=== PATIENT | female | born 1945 | race Caucasian/White ===

== ENCOUNTER 2024-02-10 12:37 | Emergency (ER) | payer MEDICARE, MEDICAID, SELFPAY ==
[2024-02-10 12:51] VITALS: BP 143/53; PULSE 79; RESP 16; TEMP 36.2; O2SAT 97; BMI 33.3
--- NOTE | 2024-02-10 12:51 | ED_ITS ---
HPI - Abdominal Pain General Chief Complaint: Skin/Abscess/Foreign Body Stated Complaint: Lower Back Pain;rash Time Seen by Provider: 02/10/24 13:01 Source: patient Mode of arrival: ambulatory Limitations: no limitations History of Present Illness HPI narrative: Patient is a 78-year-old female who presents emergency department. Reports 1 week with pain to the right scapular region of her back radiating across into the right breast which has been constant in nature, she developed a rash a couple of days ago in this area. Reports no injury to the area, denies fevers or chills. She has a history of shingles Related Data Home Medications ?Medication ?Instructions ?Recorded ?Confirmed fluticasone propionate 110 1 puff inhalation BID 04/07/21 mcg/actuation HFA aerosol inhaler (Flovent HFA) Previous Rx's ?Medication ?Instructions ?Recorded prednisone 20 mg tablet 40 mg (2 x 20 mg) PO DAILY 5 days 02/10/24 #10 tabs valacyclovir 500 mg tablet 500 mg PO DAILY #7 tabs 02/10/24 Allergies Allergy/AdvReac Type Severity Reaction Status Date / Time morphine [MORPHINE] Allergy Intermediate FAINTED Verified 02/10/24 13:00 Review of Systems Review of Systems Yes all other systems are reviewed and are negative [facility] Past Medical History Attestation statement: The following information was validated with the patient. Source: old records reviewed Social History Social History Advance Directives: No Advance Directives Information Provided: Yes Do you have a plan to hurt others: No Plan Physical Exam ED Vital Signs: Vital Signs - 24 hr 02/10/24 12:51 Temperature 97.2 F Pulse Rate 79 Respiratory Rate 16 Blood Pressure 143/53 H Pulse Oximetry 97 Oxygen Delivery Method Room Air BMI result Body Mass Index 33.3 Appearance: Alert.?Oriented to person, place and time. No acute distress.?Normal affect. Neck: Normal inspection.? Neck supple.?? CVS: Heart sounds normal. Normal heart rate and rhythm.? Pulses normal.?? Respiratory: No respiratory distress.? Lung sounds clear to auscultation martine aterally?? Abdomen: Soft and non-tender. Negative Rodriguez sign. Normoactive bowel sounds. Skin: Skin warm and dry.? Normal skin color.? Vesicular papular rash on erythematous base involving the right scapula/right anterior chest C8-T2 dermatomes Extremities: No lower extremity edema.? Neuro: Moves all extremities spontaneously. Sensation intact bilaterally. Medical Decision Making Medical Decision Making MDM Narrative: Patient is a 78-year-old female with past medical history of end-stage renal disease presenting to emergency department for evaluation of a painful rash to her right scapula and right anterior chest as per HPI. Physical examination is consistent with herpes zoster, given ESRD, will dose valacyclovir accordingly to 500 mg every 24 hours for 7 days in addition to a course of prednisone for further pain management. Discussed worrisome signs and symptoms that would warrant re-evaluation emergency department. All questions answered. Stable for discharge. Differential Diagnosis Differential Diagnoses: The differential diagnosis associated with the presentation includes (Herpes zoster, folliculitis, contact dermatitis, drug eruption) Independent Historian Clinical information obtained from an independent historian. History obtained from or confirmed by: Other (Son present who confirms history) External Record Review External record reviewed: Outpatient record Prescription Management I considered prescription management with: Antiviral and Other (Prednisone) Chronic Conditions Patient?s care impacted by: Other (ESRD) Discharge Plan Discharge Clinical Impression: Herpes zoster Patient Disposition: Home, Self-Care Instructions: Shingles (ED) Additional Instructions: Take valacyclovir daily as prescribed. On the days that you have dialysis be sure to take it after your dialysis is completed. Take the prednisone daily as prescribed for 5 days. Take this with food to prevent any stomach upset. You may return back to emergency department any new or worsening symptoms or concerns. Please contact your primary care doctor to arrange for a follow-up visit. Prescriptions: New valacyclovir 500 mg tablet 500 mg PO DAILY Qty: 7 0RF prednisone 20 mg tablet 40 mg PO DAILY 5 Days Qty: 10 0RF No Action Flovent HFA 110 mcg/actuation HFA aerosol inhaler 1 puff inhalation BID Print Language: Nigerien
[2024-02-10 13:13] VITALS: BP 143/53; PULSE 79; RESP 16; TEMP 36.2; O2SAT 97
== END 2024-02-10 13:16 | disposition home or self-care (01) ==
PROVIDERS: Emergency Provider Emergency Medicine; PCP Internal Medicine Nephrology
DX: B02.9 Zoster without complications (principal); N18.6 End stage renal disease
CPT/HCPCS: 99282; 99283

== ENCOUNTER 2024-03-06 10:45 | Emergency (ER) | payer MEDICARE, MEDICAID, SELFPAY ==
[2024-03-06 12:02] VITALS: BP 134/71; PULSE 71; RESP 18; TEMP 37.1; O2SAT 97; BMI 39.4
--- NOTE | 2024-03-06 12:02 | ED_ITS ---
HPI - General Adult General Chief complaint: General Medical Stated complaint: shingles in pain Time Seen by Provider: 03/06/24 12:09 Source: patient Mode of arrival: ambulatory Limitations: no limitations History of Present Illness ED Provider: Mandy BELLA HPI narrative: This is a 78-year-old female history of obesity, ESRD on HD, recent diagnosis of shingles on 02/10/2024 presenting with complaints of pain to affected area from shingles rash. She was taking gabapentin however she ran out. Patient denies chills, nausea, vomiting, abdominal pain, chest pain, shortness of breath. Has a PCP and will follow-up with them. Related Data Home Medications ?Medication ?Instructions ?Recorded ?Confirmed fluticasone propionate 110 1 puff inhalation BID 04/07/21 mcg/actuation HFA aerosol inhaler (Flovent HFA) Previous Rx's ?Medication ?Instructions ?Recorded prednisone 20 mg tablet 40 mg (2 x 20 mg) PO DAILY 5 days 02/10/24 #10 tabs valacyclovir 500 mg tablet 500 mg PO DAILY #7 tabs 02/10/24 gabapentin 100 mg capsule 100 mg PO TID 7 days #21 caps 03/06/24 Allergies Allergy/AdvReac Type Severity Reaction Status Date / Time morphine [MORPHINE] Allergy Intermediate FAINTED Verified 03/06/24 12:05 Review of Systems Review of Systems: Yes all other systems are reviewed and are negative [facility] Past Medical History Attestation statement: The following information was validated with the patient. Source: old records reviewed and nursing notes reviewed Social History Social History Advance Directives: No Physical Exam ED Vital Signs: Vital Signs - 24 hr 03/06/24 12:02 Temperature 98.8 F Pulse Rate 71 Respiratory Rate 18 Blood Pressure 134/71 Pulse Oximetry 97 Oxygen Delivery Method Room Air BMI result Body Mass Index 39.4 vss Appearance: Alert.? Oriented X3.? No acute distress.? Head: Normocephalic, atraumatic, no step-offs or deformities Eyes: Pupils equal, round and reactive to light.? CVS: Normal heart rate and rhythm.? Pulses normal.? Respiratory: No respiratory distress.? Breath sounds normal.? Abdomen: Soft and nontender.? Skin: Skin warm and dry.? Normal skin color.? Normal skin turgor.?+ stripe of healing blisters on an erathematous base, on R dermatome T3-T4 region Extremities: No lower extremity edema.? No calf ttp. 5/5 strength to bilateral upper and lower extremities Back: No midline tenderness, no C-spine tenderness, full range of motion, no CVA tenderness bilaterally Neuro: Oriented X 3.? No motor deficit.? No sensory deficit. CN 2-12 intact Course Course Course Narrative: This is an RME done by GAYLE Chandler: Additional HPI, ROS, PE not included below will be deferred to primary provider. 78 year old female presents with complaint of increasing shingles pain after being diagnosed about 4 weeks ago. She states the shingles is located on her back and is seeimgnl getting better but the pain is increasing. Pt states she has been taking gabapentin but it has not helped the pain. Appearance: Alert.? Oriented X3.? No acute cardiopulmonary distress distress.? Head: Normocephalic, atraumatic, no step-offs or deformities CVS: Pulses normal.? Respiratory: No respiratory distress.? Abdomen: Soft and nontender.? Skin: ? Normal skin color. Extremities: 5/5 strength to bilateral upper and lower extremities. Back: No midline tenderness, no C-spine tenderness, full range of motion, No CVA tenderness bilaterally. Right sided rash along T3/T4 dermatome Neuro: Oriented X 3.? No motor deficit.? No sensory deficit. Reevaluation(s) Reevaluation #1: Educated patient on diagnosis and treatment plan, answered all question, patient verbalizes understanding. At this time patient will be discharged home, advised to return with new or worsening symptoms. Educated on worrisome signs and symptoms and when to return. At this time I feel comfortable discharge home. Time: 12:14 Medical Decision Making Medical Decision Making [facility] Narrative: [address]12 78 yo f presents w/ concerns of ain to shingles region on right side ran out of gabapentin PE + stripe of healing blisters on an erathematous base, on R dermatome T3-T4 region HX and pe concerning for healing shingles vs contact dermatitis vs localized allergic reation. Likely nerve pain. No signs of necrotizing infection Plan- refil gabapentin encouragage PCP follow up and dc home. Differential Diagnosis Differential Diagnoses: The differential diagnosis associated with the presentation includes HX and pe concerning for healing shingles vs contact dermatitis vs localized allergic reation. Likely nerve pain. No signs of necrotizing infection Admission/Observation Consideration of admission/observation: Escalation of care including admission/observation considered External Record Review External record reviewed: Office record, Outpatient record and Prior outpatient labs Prescription Management I considered prescription management with: Pain Medication (gabapentin ) Chronic Conditions Patient?s care impacted by: Other (ckd ) Discharge Plan Discharge Clinical Impression: Shingles Patient Disposition: Home, Self-Care Instructions: Shingles (ED) Additional Instructions: Take your medications as prescribed. If you were prescribed antibiotics today, it is important that you take your medication to their entirety, do not skip any doses, do not finish them early. Follow-up with your primary care provider this week. Return to the emergency department with new or worsening symptoms. In case of emergency call 911 Prescriptions: New gabapentin 100 mg capsule 100 mg PO TID 7 Days Qty: 21 0RF No Action Flovent HFA 110 mcg/actuation HFA aerosol inhaler 1 puff inhalation BID valacyclovir 500 mg tablet 500 mg PO DAILY Qty: 7 0RF prednisone 20 mg tablet 40 mg PO DAILY 5 Days Qty: 10 0RF Referrals: Physician,Unknown J [Primary Care Provider] - 2 days Print Language: Turkish
[2024-03-06 12:16] VITALS: BP 134/71; PULSE 71; RESP 18; TEMP 37.1; O2SAT 97
== END 2024-03-06 12:17 | disposition home or self-care (01) ==
PROVIDERS: Emergency Provider Emergency Medicine
DX: B02.8 Zoster with other complications (principal)
CPT/HCPCS: 99282; 99283

== ENCOUNTER 2024-03-16 09:13 | Emergency (ER) | payer MEDICARE, MEDICAID, SELFPAY ==
--- NOTE | ~2024-03-16 | XR_ITS ---
EXAMINATION: XR ANKLE, LEFT CLINICAL INFORMATION: Pain in both ankles. COMPARISON: None available. TECHNIQUE: 3 views of the left ankle. FINDINGS: 3 views of left ankle reveal diffuse osteopenia soft tissue swelling along the lateral aspect of the foot but no fractures. There is plantar calcaneal spur. Ankle mortise is preserved. XR/XR ankle LT min 3V IMPRESSION: No fracture seen on the left
--- NOTE | ~2024-03-16 | XR_ITS ---
Examination: Right ankle and right foot COMPARISON: None CLINICAL INFORMATION: pain following fall FINDINGS: 3 views of right ankle reveals mild diffuse osteopenia but no evidence of fractures there is soft tissue swelling seen laterally ankle mortise is maintained. 3 views of right foot reveals no fractures or dislocations. There is plantar calcaneal spur. XR/XR foot RT min 3V IMPRESSION: No fractures seen. Soft tissue swelling laterally. Plantar calcaneal spur. No evidence of fractures in the right foot or ankle
--- NOTE | ~2024-03-16 | XR_ITS ---
Examination: Right ankle and right foot COMPARISON: None CLINICAL INFORMATION: pain following fall FINDINGS: 3 views of right ankle reveals mild diffuse osteopenia but no evidence of fractures there is soft tissue swelling seen laterally ankle mortise is maintained. 3 views of right foot reveals no fractures or dislocations. There is plantar calcaneal spur. XR/XR ankle RT min 3V IMPRESSION: No fractures seen. Soft tissue swelling laterally. Plantar calcaneal spur. No evidence of fractures in the right foot or ankle
[2024-03-16 09:19] VITALS: BP 122/84; PULSE 88; O2SAT 99
[2024-03-16 09:34] VITALS: BP 114/41; PULSE 74; RESP 16; TEMP 37.1; O2SAT 97; BMI 43.6
--- NOTE | 2024-03-16 09:48 | ED.LOWEXIN ---
HPI - Extremity Injury (Lower) General Chief Complaint: Extremity Injury, Lower Stated Complaint: ANKLE PAIN Time Seen by Provider: 03/16/24 09:29 Source: patient Mode of arrival: EMS Limitations: no limitations History of Present Illness HPI Narrative: patient is a 78-year-old female who presents emergency department via EMS. She reports that she was walking with her walker today, be walker went too far forward from her resulting in her losing her balance, she fell onto her knees and then sat back down onto her buttocks. She reports a cracking sensation to her ankles. She denies any head strike or loss of consciousness. She reports pain to the bilateral ankles and her right foot. She does state that she is currently being treated for active herpes zoster to her right shoulder, she took gabapentin prior to arrival. At this time she declines acetaminophen when offered. She denies any numbness tingling or cold sensation to the extremities. She does report that she lives alone, she has a wheelchair to get around for distances, typically uses a walker within her home but she states that she does feel comfortable navigating throughout her house with a wheelchair if need be. Related Data Home Medications ?Medication ?Instructions ?Recorded ?Confirmed fluticasone propionate 110 1 puff inhalation BID 04/07/21 mcg/actuation HFA aerosol inhaler (Flovent HFA) Previous Rx's ?Medication ?Instructions ?Recorded prednisone 20 mg tablet 40 mg (2 x 20 mg) PO DAILY 5 days 02/10/24 #10 tabs valacyclovir 500 mg tablet 500 mg PO DAILY #7 tabs 02/10/24 gabapentin 100 mg capsule 100 mg PO TID 7 days #21 caps 03/06/24 Allergies Allergy/AdvReac Type Severity Reaction Status Date / Time morphine [MORPHINE] Allergy Intermediate FAINTED Verified 03/16/24 09:34 Review of Systems Review of Systems: Yes all other systems are reviewed and are negative [facility] Past Medical History Attestation statement: The following information was validated with the patient. Source: old records reviewed Social History Social History Advance Directives: No Advance Directives Information Provided: No Physical Exam Vital Signs: Vital Signs: Last Vital Signs Temp 97.5 F 03/16/24 10:00 Pulse 77 03/16/24 10:00 Resp 16 03/16/24 09:34 BP 117/40 L 03/16/24 10:00 Pulse Ox 99 03/16/24 10:00 O2 Del Method Room Air 03/16/24 10:00 BMI result Body Mass Index 43.6 Appearance: Alert.?Oriented to person, place and time. No acute distress.?Normal affect. Eyes: Pupils equal, round and reactive to light.? ENT: Pharynx normal.?? Neck: Normal inspection.? Neck supple.?? CVS: Heart sounds normal. Normal heart rate and rhythm.? Pulses normal.?? Respiratory: No respiratory distress.? Lung sounds clear to auscultation bilaterally?? Abdomen: Soft and non-tender. Normoactive bowel sounds. ?? Skin: Skin warm and dry.? Normal skin color.? Extremities: No lower extremity edema.? No calf ttp? 2+ DP/PT pulse bilaterally. No obvious deformity to bilateral ankles/ foot. Diffuse tenderness upon palpation of right midfoot Neuro: Moves all extremities spontaneously. Sensation intact bilaterally. CN II-XII intact. No focal neuro deficits. Course Reevaluation(s) Reevaluation #1: bilateral ankle and right foot XR is without acute fracture. These results were discussed with patient. She is amenable to acetaminophen at this time. We will wrap bilateral ankles with Davon bandages attempt ambulatory trial son is at bedside Time: 11:42 Reevaluation #2: ambulated with slow antalgic gait in the use of a walker. She feels comfortable with plan of care for discharge home. Medications Administered Discontinued Medications Generic Name Dose Route Start Last Admin Trade Name Freq PRN Reason Stop Dose Admin Acetaminophen 975 mg 03/16/24 11:39 03/16/24 11:51 Acetaminophen 325 Mg Tablet PO 03/16/24 11:40 975 mg ONCE ONE Administration Medical Decision Making Medical Decision Making MDM Narrative: patient is a 78-year-old female past medical history of obesity, hypertension, end-stage renal disease on hemodialysis presents emergency for evaluation of bilateral a goal in right foot pain after mechanical fall today as per HPI. Overall she appears well, nontoxic, afebrile. Bilateral lower extremities are neurovascularly intact distally. She is diffuse pain upon palpation to the right mid foot, and reports pain with range of motion to the bilateral ankles. XR to be obtained to exclude fracture / dislocation. I discussed with patient, once x-rays are reviewed, if safe to do so will attempt ambulatory trial. She states that she will simply just use her walker. I did not encourage her that we will want to assure she is able to transfer and bear weight, at least minimally with use of her walker as she does live alone and will need to be able to get in and out of the bathroom etc. Differential Diagnosis Differential Diagnoses: The differential diagnosis associated with the presentation includes ( see narrative above) Radiology Impression Discussion of test interpretation with radiology: I have reviewed the radiologist's reading. Radiologist Impression: XR/XR ankle RT min 3V IMPRESSION: No fractures seen. Soft tissue swelling laterally. Plantar calcaneal spur. No evidence of fractures in the right foot or ankle XR/XR ankle LT min 3V IMPRESSION: No fracture seen on the left Independent Historian Clinical information obtained from an independent historian. History obtained from or confirmed by: EMS External Record Review External record reviewed: Outpatient record Discharge Plan Discharge Clinical Impression: Ankle sprain and strain Patient Disposition: Home, Self-Care Instructions: Ankle Sprain (ED), How to Use an Elastic Bandage (ED), R.I.C.E. Treatment (ED) Prescriptions: No Action Flovent HFA 110 mcg/actuation HFA aerosol inhaler 1 puff inhalation BID valacyclovir 500 mg tablet 500 mg PO DAILY Qty: 7 0RF prednisone 20 mg tablet 40 mg PO DAILY 5 Days Qty: 10 0RF gabapentin 100 mg capsule 100 mg PO TID 7 Days Qty: 21 0RF Referrals: Physician,None [Primary Care Provider] - Print Language: Palestinian
[2024-03-16 10:00] VITALS: BP 117/40; PULSE 77; TEMP 36.4; O2SAT 99
[2024-03-16] MEDS: Acetaminophen 325 MG TABLET 975 MG PO (11:51)
[2024-03-16 13:10] VITALS: BP 115/50; PULSE 80; RESP 18; TEMP 36.6; O2SAT 99
== END 2024-03-16 13:10 | disposition home or self-care (01) ==
PROVIDERS: Emergency Provider Emergency Medicine
DX: S93.409A Sprain of unspecified ligament of unspecified ankle, initial encounter (principal); S96.919A Strain of unspecified muscle and tendon at ankle and foot level, unspecified foot, initial encounter; W18.30XA Fall on same level, unspecified, initial encounter; Y93.01 Activity, walking, marching and hiking; Y92.9 Unspecified place or not applicable; Y99.9 Unspecified external cause status
CPT/HCPCS: 73610; 73630; 99283; 99284

== ENCOUNTER 2024-04-05 10:44 | Inpatient (IN) | payer MEDICARE, MEDICAID, SELFPAY ==
[2024-04-05] VITALS (10 sets, daily range): BP systolic 96–172; BP diastolic 43–130; PULSE 78–104; RESP 18–28; TEMP 36–37.3; O2SAT 91–98; BMI 39.0
--- NOTE | 2024-04-05 | ECG_ITS ---
Test Reason : CHEST PAIN / SOB Blood Pressure : / mmHG Vent. Rate : 093 BPM Atrial Rate : 093 BPM P-R Int : 146 ms QRS Dur : 086 ms QT Int : 336 ms P-R-T Axes : 058 055 039 degrees QTc Int : 417 ms Poor data quality, interpretation may be adversely affected Normal sinus rhythm Cannot rule out Anterior infarct , age undetermined Abnormal ECG When compared with ECG of 05-FEB-2019 16:25, QT has shortened Referred By: Generic ED Physician Electronically Signed By:YASMANY VARELA MD
--- NOTE | ~2024-04-05 | XR_ITS ---
EXAMINATION: XR CHEST CLINICAL INFORMATION: [place]. of breath COMPARISON: Chest radiograph from 02/05/2019 TECHNIQUE: Frontal view of the chest was obtained. FINDINGS: Slight bronchial thickening. No pneumothorax. Trachea is midline. Cardiac mediastinal silhouette is not enlarged. Aorta demonstrates atherosclerotic calcifications. No large pleural effusion. Osseous structures are intact. Soft tissues are unremarkable. XR/XR chest 1V IMPRESSION: Slight bronchial thickening.
--- NOTE | ~2024-04-05 | XR_ITS ---
EXAMINATION: XR CHEST CLINICAL INFORMATION: Follow-up hypoxia and cough COMPARISON: Chest radiograph 04/05/2024 along with older studies including a PA and lateral chest radiograph from 07/10/2018, CTA chest 02/05/2019 TECHNIQUE: Frontal view of the chest was obtained rotated to the right. FINDINGS: Heart size is within normal limits. Peribronchial thickening is again seen. Bibasilar atelectasis is present. There is a new more focal area of patchy density seen in the right upper lobe (see ott image). Slight increase in interstitial markings, especially when compared to the 2018 study. No significant pleural effusions are seen. XR/XR chest 1V IMPRESSION: 1. New patchy density right upper lobe. 2. Peribronchial thickening and bibasilar atelectasis. 3. Slight increase in interstitial markings could indicate some superimposed vascular congestion.
--- NOTE | 2024-04-05 11:06 | ED.GENADULT ---
[facility] - General Adult General Chief complaint: Dyspnea Stated complaint: cough, chest pain, difficulty breathing Time Seen by Provider: 04/05/24 11:40 Source: patient and RN notes reviewed Mode of arrival: ambulatory Limitations: no limitations History of Present Illness ED Provider: DR. Shipman [facility] narrative: This is a 78-year-old female, with a history of asthma, COPD ESRD on hemodialysis (M/W/F dialysis - dialyzed yesterday), current herpes zoster infection, who presents emergency department with complaints of shortness for breath, productive cough and chest pain x 3 days. Patient states that over the last 3 days she has had an increased cough, shortness for breath and a productive cough. She currently has had shingles for the last 2 months. She denies any fevers or chills. She has not on oxygen at home. History of asthma, has been using Primatene mist at home without any relief. MD complaint: Shortness breath, cough Onset (ago): day(s) Relieving factors: none Exacerbating factors: none Associated symptoms: chest pain and cough Related Data Home Medications ?Medication ?Instructions ?Recorded ?Confirmed fluticasone propionate 110 1 puff inhalation BID 04/07/21 mcg/actuation HFA aerosol inhaler (Flovent HFA) Previous Rx's ?Medication ?Instructions ?Recorded prednisone 20 mg tablet 40 mg (2 x 20 mg) PO DAILY 5 days 02/10/24 #10 tabs valacyclovir 500 mg tablet 500 mg PO DAILY #7 tabs 02/10/24 gabapentin 100 mg capsule 100 mg PO TID 7 days #21 caps 03/06/24 Allergies Allergy/AdvReac Type Severity Reaction Status Date / Time morphine [MORPHINE] Allergy Intermediate FAINTED Verified 04/05/24 11:09 Review of Systems Review of Systems: Yes all other systems are reviewed and are negative Constitutional: Constitutional: Reports as per [facility] Social History Social History Advance Directives: No Advance Directives Information Provided: Yes Do you have a plan to hurt others: No Plan Physical Exam ED Vital Signs: Vital Signs - 24 hr 04/05/24 11:06 04/05/24 12:10 04/05/24 12:40 Temperature 97.9 F Pulse Rate 92 93 100 Respiratory Rate 22 H 21 H 28 H Blood Pressure 108/84 138/69 Pulse Oximetry 94 94 98 Oxygen Delivery Method Room Air Nasal Cannula Nasal Cannula Oxygen Flow Rate 1 1 04/05/24 12:53 04/05/24 13:47 Temperature 99.0 F Pulse Rate 93 100 Respiratory Rate 18 23 H Blood Pressure 96/43 L Pulse Oximetry 91 L Oxygen Delivery Method Room Air Oxygen Flow Rate BMI result Body Mass Index 39.0 Vital signs have been reviewed and appear to be correct. Blood pressure elevated. Heart rate normal. Respiratory rate normal. Temperature normal. Oxygen saturation normal. Appearance: Alert. Oriented X3. No acute distress. Head: Normal external exam. Normocephalic. Atraumatic. No Fernandez signs noted. No raccoon eyes noted Eyes: PERRLA. EOMI. Conjunctiva and sclera normal. Eyelids normal. ENT: TM's Normal. Pharynx normal. Uvula midline. Moist mucous membranes. No trismus noted. No drooling noted. No muffled voice noted. Neck: Normal inspection. Neck supple. FROM. No adenopathy. Thyroid Normal. No meningeal signs. No neck mass noted. CVS: Normal heart rate and rhythm. Heart sound normal. No murmurs noted. Pulses normal throughout. Respiratory: No respiratory distress. Painless inspiration. Breath sounds normal. Diffuse expiratory wheezing with prolonged expiration and diffuse rhonchi No accessory muscle usage noted or decreased air movement noted. Abdomen: Soft and nontender. Bowel sounds normal in all 4 quadrants. No distention noted. No organomegaly noted. No visible injury noted. Back: No CVA tenderness. Full range of motion noted. Skin: Skin warm and dry. Normal skin color. Normal skin turgor. No rashes/lesions/lacerations noted. Extremities: No lower extremity edema. Extremities exhibit normal range of motion. Extremities nontender. Neuro: Oriented X 3. Cranial nerve exam: II-XII are grossly intact No motor deficit. No sensory deficit. Reflexes normal. Const General: cooperative, comfortable and no acute distress Orientation/consciousness: patient oriented x3 Limitations: no limitations [facility] Head: Yes normal to inspection, Yes normocephalic and Yes atraumatic Ears: hearing grossly normal bilaterally General nose exam: Normal external nose present Face and sinus: Yes normal facial exam Mouth: Normal oral and palatal mucosa present, oropharynx normal and moist mucous membranes Throat: Yes posterior oropharynx normal Eyes General: appearance normal, both eyes and all related structures Eyelids: Yes eyelids normal Conjunctivae: conjunctivae normal Sclerae: sclerae normal Pupils: Equal, round and reactive pupils present EOM: EOMs intact bilaterally Neck Neck: Yes normal visual inspection, Yes full ROM and Yes no lymphadenopathy Lymphatic: no lymphadenopathy noted Chest Chest palpation & inspection: normal inspection of the chest Resp Effort & Inspection: normal respiratory effort and able to speak in complete sentences Auscultation: clear to auscultation bilaterally, no crackles, no rales, no rhonchi and no wheezes Cardio Rate: regular rate Rhythm: regular rhythm Heart sounds: S1 normal heart sound present and S2 normal heart sound present GI Inspection: Yes normal to inspection Skin General skin exam: no rashes or lesions noted Trauma: no lacerations or abrasions Wounds: no wounds Neuro General: patient oriented x3 and moves all extremities Cranial nerves: Yes Equal, round and reactive pupils present Extrem General: Yes normal to inspection Right upper extremity: normal to inspection Left upper extremity: normal to inspection Right lower extremity: normal to inspection Left lower extremity: normal to inspection Course Course Course Narrative: This is a Rapid Medical Examination (RME) performed by Felicitas Metz PA-C in triage. Full HPI, ROS, assessment and treatment plan per primary provider in the Main ED. 78 yo female hx of asthma, Stage 5 CKD (M/W/5 dialysis- was dialyzed yesterday), current shingles infection here for eval of sob, productive cough, chest pain which began after coughing x3 days. no known sick contacts. coughing on exam. minimal increased effort of breathing. no wheezes or rhonchi. Plan: labs, ekg, cxr ordered Reevaluation(s) Reevaluation #1: Patient was seen by me, increased work of breathing, she was placed on 1 L of nasal cannula oxygen. I received a critical report of a troponin elevated at 136, potassium 2.8 and creatinine of 4.1. Discussed case with my attending physician, Dr. Shipman who will resume care of patient. Time: 12:15 Reevaluation #2: 78-year-old female end-stage renal disease on dialysis just received her full dialysis session yesterday came in with shortness of breath, coughing, chest pain, hypoxia required 2 L of nasal cannula in the ED, chest x-ray is consistent with bronchitis, meet criteria for SIRS received ceftriaxone and Zithromax. 1. Acute bronchitis with SIRS received ceftriaxone, Zithromax, bronchodilator, Solu-Medrol. 2. Hypokalemia potassium was repleted. 3. Hypoxia require 2 L of nasal cannula in the ED. 4. Just had full session of dialysis yesterday patient makes urine no evidence of overload hypovolemia. Time: 14:52 Medications Administered Generic Name Dose Route Start Last Admin Trade Name Freq PRN Reason Stop Dose Admin Sodium Chloride 1,000 mls @ 250 mls/hr 04/05/24 12:29 04/05/24 12:58 Ns IV 04/05/24 16:28 250 mls/hr .Q4H ONE Administration Discontinued Medications Generic Name Dose Route Start Last Admin Trade Name Freq PRN Reason Stop Dose Admin Albuterol Sulfate 2.5 mg/ 0 mg 04/05/24 12:48 04/05/24 12:53 Albuterol/Ipratropium 3 ml INHALE 04/05/24 12:49 1 dose ONCE ONE Administration Guaifenesin/Codeine Phosphate 10 ml 04/05/24 14:02 04/05/24 14:10 Guaifen/Codeine Sf 200/20/10ml 10 Ml Liquid PO 04/05/24 14:03 10 ml ONCE ONE Administration Potassium Chloride 10 meq in 100 mls @ 100 mls/hr 04/05/24 12:26 04/05/24 14:34 Potassium Chloride/H20 IV 04/05/24 13:25 Infused ONCE ONE Infusion Ceftriaxone Sodium 1 gm/ 50 mls @ 100 mls/hr 04/05/24 12:26 04/05/24 14:07 Sodium Chloride IV 04/05/24 12:55 Infused ONCE ONE Infusion Medical Decision Making Medical Decision Making MDM Narrative: This is a 78-year-old female who presents emergency department with complaints of productive cough, shortness for breath, and chest pain x3 days. On arrival, patient is speaking in 3-4 word sentences secondary to dyspnea. Lungs diminished throughout, no rhonchi, rales or wheezes auscultated. Patient has no pitting edema. Differential diagnoses include pneumonia, flu, RSV, bronchitis. ACS considered although less likely. Plan: Labs, EKG, chest x-ray Differential Diagnosis Differential Diagnoses: The differential diagnosis associated with the presentation includes (CHF, volume overload, pneumonia, bronchitis, ACS, electrolyte derangement, severe anemia.) See above Admission/Observation Consideration of admission/observation: Escalation of care including admission/observation considered Consult Healthcare Provider Management of the patient was discussed with: Hospitalist (Dr. Ozuna) Lab Data MDM Lab Attestation statement: I reviewed the patient's lab results. 04/05/24 11:29 04/05/24 11:29 Labs: Lab Results 04/05/24 04/05/24 Range/Units 11:29 12:46 WBC 14.5 H (4.8-10.8) X10*3/uL RBC 3.24 L (4.20-5.50) X10*6/uL Hgb 10.3 L (12.0-16.0) g/dl Hct 29.9 L (37.0-47.0) % MCV 92.3 (80.0-98.0) fL MCH 31.8 (27.0-33.0) pg MCHC 34.4 (31.0-35.0) g/dl RDW 13.9 (11.0-16.0) % Plt Count 340 (160-400) X10*3/uL MPV 8.5 L (9.4-12.3) fL Immature Gran % (Auto) 1.0 H (0.0-0.4) % Neut % (Auto) 78.0 H (45-73) % Lymph % (Auto) 9.1 L (20-40) % [place] % (Auto) 11.4 H (2-11) % Eos % (Auto) 0.0 (0-4) % Baso % (Auto) 0.5 (0-2) % Lymph # (Auto) 1.3 (1.2-4.9) X10*3/uL [place] # (Auto) 1.7 H (0.1-1.2) X10*3/uL Eos # (Auto) 0.0 (0.0-0.4) X10*3/uL Baso # (Auto) 0.1 (0.0-0.2) X10*3/uL Abs Immat Gran (auto) 0.15 H (0.00-0.03) X10*3/uL Absolute Neuts (auto) 11.3 H (2.0-8.3) x10*3/uL Absolute Nucleated RBC 0.000 (0.0-0.012) X10*3/uL Nucleated RBC % (auto) 0.0 (0.0-0.2) /100WBC Smear Tech's Comments VERIFIED PT 12.9 (11.1-13.3) SEC INR 1.1 (0.9-1.1) Sodium 134 L (135-145) mmol/L Potassium 2.8 L* (3.3-5.1) mmol/L Chloride 88 L (96-108) mmol/L Carbon Dioxide 32 H (22-29) mmol/L Anion Gap 17 (12-20) BUN 20 H (9-16) mg/dL Creatinine 4.15 H* (0.5-1.4) mg/dL Estim Creat Clear Calc 13.7 Estimated GFR 10 Random Glucose 103 (60-115) mg/dL Lactic Acid 1.1 (0.5-2.0) mmol/L Calcium 10.2 (8.4-10.2) mg/dL Magnesium 2.1 (1.6-2.6) mg/dL Total Bilirubin 0.8 (0.0-1.0) mg/dL AST 40 H (5-31) U/L ALT 26 (0-31) U/L Alkaline Phosphatase 139 H (39-117) U/L Troponin I High Sens 136.0 H* (<3.5-17.0) ng/L B-Natriuretic Peptide 760 H (<100) pg/mL Total Protein 7.3 (6.5-8.0) g/dL Albumin 3.6 (3.5-5.0) g/dL Lipase 14 (8-78) U/L Influenza Type A (PCR) NEGATIVE (Negative) Influenza Type B (PCR) NEGATIVE (Negative) RSV RNA Qual (PCR) NEGATIVE (Negative) SARS-CoV-2 RNA (RT-PCR) NEGATIVE (Negative) Independent Interpretation I performed an independent interpretation of an: EKG and Plain X-Ray (Chest: Slight bronchial thickening) Interpretation: EKG normal sinus rhythm at a ventricular rate of 93 beats per minute, Radiology Impression Discussion of test interpretation with radiology: I have reviewed the radiologist's reading. External Record Review External record reviewed: Inpatient record, Office record, Outpatient record, Prior outpatient labs, Prior outpatient radiology, Primary care record and Outside ED record Discharge Plan Discharge Clinical Impression: Acute dyspnea, Hypoxia, Elevated troponin, Bronchitis Patient Disposition: Admitted As Inpatient Prescriptions: No Action Flovent HFA 110 mcg/actuation HFA aerosol inhaler 1 puff inhalation BID valacyclovir 500 mg tablet 500 mg PO DAILY Qty: 7 0RF prednisone 20 mg tablet 40 mg PO DAILY 5 Days Qty: 10 0RF gabapentin 100 mg capsule 100 mg PO TID 7 Days Qty: 21 0RF Print Language: Kiswahili
[2024-04-05 11:36] LABS: Basophils Absolute Auto 0.1 X10*3/uL (0.0-0.2); Basophils Percent Auto 0.5 % (0-2); Hematocrit 29.9 % (37.0-47.0); Hemoglobin 10.3 g/dl (12.0-16.0); Imm Gran Abs Auto 0.15 X10*3/uL (0.00-0.03); Lymphocytes Absolute Auto 1.3 X10*3/uL (1.2-4.9); Lymphocytes Percent Auto 9.1 % (20-40); MANUAL DIFF FLAG SCAN; Mean Corpuscular HGB Conc 34.4 g/dl (31.0-35.0); Mean Corpuscular Hemoglobin 31.8 pg (27.0-33.0); Mean Corpuscular Volume 92.3 fL (80.0-98.0); Monocytes Absolute Auto 1.7 X10*3/uL (0.1-1.2); Monocytes Percent Auto 11.4 % (2-11); Neutrophils Absolute Auto 11.3 x10*3/uL (2.0-8.3); Platelet Count 340 X10*3/uL (160-400); Red Blood Count 3.24 X10*6/uL (4.20-5.50); Red Cell Distribution Width 13.9 % (11.0-16.0); SCAN SMEAR FLAG 1; White Blood Count 14.5 X10*3/uL (4.8-10.8)
[2024-04-05 11:38] LABS: Mean Platelet Volume 8.5 fL (9.4-12.3)
[2024-04-05 11:42] LABS: INTERNATIONAL NORM RATIO 1.1 (0.9-1.1); Prothrombin Time 12.9 SEC (11.1-13.3)
[2024-04-05 11:52] LABS: SLIDE REVIEW VERIFIED
--- NOTE | 2024-04-05 12:05 | PC.NURSE ---
Pt placed on playground monitor, nsr at this time. Placed on 1L of O2 for comfort.
[2024-04-05 12:12] LABS: Influenza A PCR NEGATIVE (Negative); Influenza B PCR NEGATIVE (Negative); Resp Syncy Virus RNA Qual PCR NEGATIVE (Negative); SARS COV2 PCR INHOUSE NEGATIVE (Negative)
[2024-04-05 12:13] LABS: Alanine Aminotransferase 26 U/L (0-31); Albumin Level 3.6 g/dL (3.5-5.0); Alkaline Phosphatase 139 U/L (39-117); Anion Gap 17 (12-20); Aspartate Amino Transferase 40 U/L (5-31); Bilirubin Total 0.8 mg/dL (0.0-1.0); Blood Urea Nitrogen 20 mg/dL (9-16); Calcium 10.2 mg/dL (8.4-10.2); Carbon Dioxide 32 mmol/L (22-29); Chloride 88 mmol/L (96-108); Creatinine Clr Calc Pharmacy 13.7; Estimated Glomerular Filt Rate 10; Glucose Random 103 mg/dL (60-115); Lipase 14 U/L (8-78); Magnesium 2.1 mg/dL (1.6-2.6); Potassium 2.8 mmol/L (3.3-5.1); Sodium 134 mmol/L (135-145); Total Protein 7.3 g/dL (6.5-8.0)
[2024-04-05 12:49] LABS: B Type Natriuretic Peptide 760 pg/mL (<100)
[2024-04-05] MEDS: Albuterol Sulfate 2.5 MG, Albuterol/Iprat 2.5/0.5MG 3 ML 3 ML INHALE (12:53)
[2024-04-05] MEDS: cefTRIAXone sodium 1 GM in 0.9 % Sodium Chloride 50 ML IV (12:57)
[2024-04-05] MEDS: 0.9 % Sodium Chloride 1,000 ML 250 ML IV (12:58)
[2024-04-05 13:11] LABS: Lactic Acid 1.1 mmol/L (0.5-2.0)
[2024-04-05] MEDS: Potassium Chloride/H20 10 MEQ/100 ML PIGGYBACK 100 MEQ IV (13:24)
[2024-04-05] MEDS: guaiFEN/Codeine SF 200/20/10ML 10 ML LIQUID PO (14:10)
[2024-04-05] MEDS: Azithromycin 500 MG in 0.9 % Sodium Chloride 250 ML 125 MG IV (14:58)
[2024-04-05] MEDS: methylPREDNISolone Sod Succ 125 MG/2 ML VIAL IVPUSH (14:59)
--- NOTE | 2024-04-05 16:12 | PHA.MEDREC ---
Pharmacy Consult ? Medication Reconciliation Pharmacy has completed the medication reconciliation. Pt states she takes furosemide 240 mg SUTUTHSA; Metoprolol tartrate 12.5 mg daily on WE; Metoprolol tartrate 12.5 mg BID SUTUTHSA; Sevelamer 2400 mg TIDWM.
[2024-04-05 16:22] LABS: Troponin-I High Sensitivity 119.4 ng/L (<3.5-17.0)
--- NOTE | 2024-04-05 17:10 | P.HPHOSP_ITS ---
History of Present Illness Date of Service: 04/05/24 Chief Complaint: Cough, Shortness of breath A 78 years old lady with PMH of ESRD on HD among others who presents to the hospital with cough, SOB associated with wheezing for 3 days. The patient report that she started feeling SOB 3 days ago that worsened over the last few days. she had dialysis yesterday but did not feel better and continued to have coughing episodes and dyspnea with minimal exertion. No chest pain, palpitations, nausea, vomiting, diarrhea or urinary symptoms. She reports a fall last week that she did not move much since then. She does dialysis MWF and follows with dr Barnes, last HD was Sunday. In ED she was found hypoxic to late 80s on room air. started on nebulizer , antibiotics, steroids and O2 supplement. Admitted for further treatment. Review of Systems 2 Review of Systems: No fever, chills or weakness No chest pain, palpitation having shortness of breath and coughing No abdominal pain, nausea or vomiting No urinary symptoms No any rash or wounds [facility] Medical History ESRD (end stage renal disease) on dialysis Social History Advance Directives: No Advance Directives Information Provided: Yes Do you have a plan to hurt others: No Plan Meds Allergies Allergy/AdvReac Type Severity Reaction Status Date / Time morphine [MORPHINE] Allergy Intermediate FAINTED Verified 04/05/24 11:09 Active Medications: Current Medications Acetaminophen (Acetaminophen 325 Mg Tablet) 650 mg PO Q6H PRN PRN Reason: Pain, Mild (Pain Scale 1-3), fever or headache Albuterol/Ipratropium (Albuterol/Iprat 2.5/0.5mg 3 Ml Ampul.Neb) 3 ml INHALE RQ6H WHILE AWAKE ASTRID Benzonatate (Benzonatate 100 Mg Capsule) 100 mg PO TID ASTRID Calcium Carbonate (Calcium Carbonate 750 Mg Tab.Chew) 750 mg PO Q4H PRN PRN Reason: Heartburn Furosemide (Furosemide 40 Mg Tablet) 240 mg PO SUTUTHSA@0900 ASTRID; Protocol Gabapentin (Gabapentin 100 Mg Capsule) 200 mg PO BID ASTRID Guaifenesin (Guaifenesin La 600 Mg Tab.Er.12h) 600 mg PO BID [facility] Heparin Sodium (Porcine) (Heparin Sodium,Porcine 5,000 Unit/Ml Vial) 5,000 unit SUBCUT Q12H [facility] Azithromycin 500 mg/ Sodium (Chloride) 250 mls @ 125 mls/hr IV Q24H [facility] Magnesium Hydroxide (Milk Of Magnesia 30 Ml Oral.Susp) 30 ml PO DAILY PRN PRN Reason: Constipation Melatonin (Melatonin 3 Mg Tablet) 6 mg PO BEDTIME PRN PRN Reason: Insomnia Methylprednisolone Sodium Succinate (Methylprednisolone Sod Succ 40 Mg/Ml Vial) 40 mg IVPUSH Q24H [facility] Metoprolol Tartrate (Metoprolol Tartrate 12.5 Mg Halftab) 12.5 mg PO MOWEFR@09 [facility]; Protocol Metoprolol Tartrate (Metoprolol Tartrate 12.5 Mg Halftab) 12.5 mg PO SUTUTHSA@09 [facility]; Protocol Metoprolol Tartrate (Metoprolol Tartrate 12.5 Mg Halftab) 12.5 mg PO SUTUTHSA@2099 [facility]; Protocol Ondansetron HCl (Ondansetron Hcl 4 Mg/2 Ml Vial) 4 mg IVPUSH Q8H PRN PRN Reason: Nausea and Vomiting Sevelamer Carbonate (Sevelamer Carbonate Tablet 800 Mg Tablet) 800 mg PO DAILY PRN PRN Reason: snack Sevelamer Carbonate (Sevelamer Carbonate Tablet 800 Mg Tablet) 2,400 mg PO TIDWM [facility] Sodium Chloride (0.9 % Sodium Chloride Flush 3 Ml Syringe) 3 ml IVFLUSH QSHIFT [facility] Home Medications ?Medication ?Instructions ?Recorded ?Confirmed ?Last Taken ?Type furosemide 80 mg tablet 240 mg PO SUTUTHSA@89904/05/24 04/05/24 Unknown History gabapentin 100 mg capsule 200 mg PO BID 04/05/24 04/05/24 Unknown History metolazone 10 mg tablet 5 mg PO DAILY 04/05/24 04/05/24 Unknown History metoprolol tartrate 25 mg tablet 12.5 mg PO MOWEFR@89904/05/24 04/05/24 Unknown History metoprolol tartrate 25 mg tablet 12.5 mg PO SUTUTHSA@89904/05/24 04/05/24 04/05/24 History metoprolol tartrate 25 mg tablet 12.5 mg PO SUTUTHSA@209904/05/2424 Unknown History sevelamer carbonate 800 mg tablet 2,400 mg PO TIDWM 04/05/24 04/05/24 Unknown History (Renvela) sevelamer carbonate 800 mg tablet 800 mg PO DAILY PRN snack 04/05/24 04/05/24 Unknown History (Renvela) Physical Exam 2 Vital Signs and Narrative: Vital Signs: Last Vital Signs Temp 99.1 F 04/05/24 16:15 Pulse 95 04/05/24 16:15 Resp 22 H 04/05/24 16:15 BP 127/67 04/05/24 16:15 Pulse Ox 91 L 04/05/24 13:47 O2 Del Method Room Air 04/05/24 13:47 O2 Flow Rate 1 04/05/24 12:40 BMI result Body Mass Index 39.0 Const: Other: Constitutional : Awake, interactive, not in distress Neck : Normal inspection, Supple Cardiovascular : RRR, no JVP, trace lower extremity edema Respiratory : decreased bilateral air entry, no crackles, expiratory wheezes Gastrointestinal: soft, lax, Normal bowel sounds, Non tender Skin : Warm, Dry Neurological : Alert & oriented x3, No focal deficit Results Labs 04/05/24 11:29 04/05/24 11:29 Labs: Laboratory Results - last 24 hr 04/05/24 04/05/24 04/05/24 11:29 12:46 15:41 MCV 92.3 MCH 31.8 MCHC 34.4 RDW 13.9 Plt Count 340 MPV 8.5 L Immature Gran % (Auto) 1.0 H Neut % (Auto) 78.0 H Lymph % (Auto) 9.1 L [place] % (Auto) 11.4 H Eos % (Auto) 0.0 Baso % (Auto) 0.5 Lymph # (Auto) 1.3 [place] # (Auto) 1.7 H Eos # (Auto) 0.0 Baso # (Auto) 0.1 Abs Immat Gran (auto) 0.15 H Absolute Neuts (auto) 11.3 H Absolute Nucleated RBC 0.000 Nucleated RBC % (auto) 0.0 Smear Tech's Comments VERIFIED PT 12.9 INR 1.1 Anion Gap 17 Estim Creat Clear Calc 13.7 Estimated GFR 10 Random Glucose 103 Lactic Acid 1.1 Calcium 10.2 Magnesium 2.1 Total Bilirubin 0.8 AST 40 H ALT 26 Alkaline Phosphatase 139 H Troponin I High Sens 136.0 H* 119.4 H* B-Natriuretic Peptide 760 H Total Protein 7.3 Albumin 3.6 Lipase 14 Influenza Type A (PCR) NEGATIVE Influenza Type B (PCR) NEGATIVE RSV RNA Qual (PCR) NEGATIVE SARS-CoV-2 RNA (RT-PCR) NEGATIVE Imaging Radiologist's Impressions: Impressions Chest X-Ray 04/05/24 12:16 IMPRESSION: Slight bronchial thickening. Assessment and Plan (1) Hypoxia: Status: Acute (2) Acute dyspnea: Status: Acute (3) Elevated troponin: Status: Acute (4) Bronchitis: Status: Acute (5) ESRD (end stage renal disease) on dialysis: Status: Acute (6) Acute hypokalemia: Status: Acute Plan A 78 years old lady with PMH of ESRD on HD among others who presents to the hospital with cough, SOB associated with wheezing for 3 days. Acute hypoxia 2/2 acute bronchitis CXR not showing clear infiltrates, has more crackles on the right side Start steroids NEbulizers Empirical IV Azithromycin wean O2 down as tolerated [place] PT eval ESRD on HD MWF Nephrology consult continue Lasix acute Hypokalemia replacement given, follow BMP Elevated Trop likely 2/2 hypoxia, type 2 trended down with no EKG changes or chest pain Monitor DVT PPx Heparin SC The patient will need 2 or more overnight hospital stay for treatment of acute hypoxia pending clinical improvement and PT evaluation. Quality Stroke Does the patient have a stroke diagnosis?: No VTE Prior VTE?: No VTE Risk Level:: Medical - moderate - high VTE Device Contraindication: Treatment Not Indicated VTE Drug Contraindication: N/A - Med Ordered
[2024-04-05] MEDS: Potassium Chloride Packet 20 MEQ PACKET 40 MEQ PO ×2 (17:45→18:23)
[2024-04-05] MEDS: Sevelamer Carbonate Tablet 800 MG TABLET 2400 MG PO (17:46)
[2024-04-05] MEDS: Albuterol/Iprat 2.5/0.5MG 3 ML AMPUL.NEB INHALE (20:39)
--- NOTE | 2024-04-05 21:31 | PM.PNNEP ---
Subjective Subjective Date of Service: 04/05/24 Principal diagnosis: ESRD, Hypoxia Interval history: ESRD mwf HDU well known to adm with brain [place] d/w hospitlaist in detail and I will see PT 04/06/24 No indication for HD today Full ocnsult to follow Physical Exam Vital Signs: Vital Signs: Last Vital Signs Temp 96.8 F 04/05/24 21:03 Pulse 104 H 04/05/24 21:03 Resp 20 04/05/24 21:03 BP 156/81 H 04/05/24 21:03 Pulse Ox 94 04/05/24 21:03 O2 Del Method Nasal Cannula 04/05/24 21:03 O2 Flow Rate 2 04/05/24 21:03 BMI result Body Mass Index 39.0 Objective Data Labs 04/05/24 11:29 04/05/24 11:29 Labs: Laboratory Results - last 24 hr 04/05/24 04/05/24 04/05/24 11:29 12:46 15:41 WBC 14.5 H RBC 3.24 L Hgb 10.3 L Hct 29.9 L MCV 92.3 MCH 31.8 MCHC 34.4 RDW 13.9 Plt Count 340 MPV 8.5 L Immature Gran % (Auto) 1.0 H Neut % (Auto) 78.0 H Lymph % (Auto) 9.1 L [place] % (Auto) 11.4 H Eos % (Auto) 0.0 Baso % (Auto) 0.5 Lymph # (Auto) 1.3 [place] # (Auto) 1.7 H Eos # (Auto) 0.0 Baso # (Auto) 0.1 Abs Immat Gran (auto) 0.15 H Absolute Neuts (auto) 11.3 H Absolute Nucleated RBC 0.000 Nucleated RBC % (auto) 0.0 Smear Tech's Comments VERIFIED PT 12.9 INR 1.1 Sodium 134 L Potassium 2.8 L* Chloride 88 L Carbon Dioxide 32 H Anion Gap 17 BUN 20 H Creatinine 4.15 H* Estim Creat Clear Calc 13.7 Estimated GFR 10 Random Glucose 103 Lactic Acid 1.1 Calcium 10.2 Magnesium 2.1 Total Bilirubin 0.8 AST 40 H ALT 26 Alkaline Phosphatase 139 H Troponin I High Sens 136.0 H* 119.4 H* B-Natriuretic Peptide 760 H Total Protein 7.3 Albumin 3.6 Lipase 14 Influenza Type A (PCR) NEGATIVE Influenza Type B (PCR) NEGATIVE RSV RNA Qual (PCR) NEGATIVE SARS-CoV-2 RNA (RT-PCR) NEGATIVE Procedures Date of Service Date of Service: 04/05/24 Assessment & Plan Time Spent With Patient Time: Total time managing care of this patient today ____ minutes. Progress Note: Quality Stroke Does the patient have a stroke diagnosis?: No
[2024-04-05] MEDS: Heparin Sodium,Porcine 5,000 UNIT/ML VIAL 5000 UNIT SUBCUT (21:44)
[2024-04-05] MEDS: Gabapentin 100 MG CAPSULE 200 MG PO (21:46)
[2024-04-05] MEDS: Metoprolol Tartrate 12.5 MG HALFTAB PO (21:47)
[2024-04-05] MEDS: guaiFENesin LA 600 MG TAB.ER.12H PO (21:47)
[2024-04-05] MEDS: Benzonatate 100 MG CAPSULE PO (21:47)
[2024-04-05] MEDS: 0.9 % Sodium Chloride Flush 3 ML SYRINGE IVFLUSH (21:50)
[2024-04-05 22:21] LABS: Anion Gap 22 (12-20); Blood Urea Nitrogen 24 mg/dL (9-16); Calcium 9.7 mg/dL (8.4-10.2); Carbon Dioxide 25 mmol/L (22-29); Chloride 91 mmol/L (96-108); Creatinine Clr Calc Pharmacy 12.2; Estimated Glomerular Filt Rate 9; Glucose Random 213 mg/dL (60-115); Magnesium 1.9 mg/dL (1.6-2.6); Potassium 4.3 mmol/L (3.3-5.1); Sodium 134 mmol/L (135-145)
[2024-04-06] VITALS (11 sets, daily range): BP systolic 121–150; BP diastolic 55–71; PULSE 80–100; RESP 12–18; TEMP 36.2–37; O2SAT 93–99
[2024-04-06 04:35] LABS: Appearance Urine Cloudy; Color Urine Yellow; Glucose Urine UA 100 mg/dL (Negative); Leukocyte Esterase Urine Trace (Negative); Nitrite Urine Negative (Negative); PH 6.5 (5.0-9.0); Specific Gravity - Urine 1.015 (1.005-1.025); UMIC TRIGGER UACC YES; Urine Blood Large (3+) (Negative); Urine Ketones Negative (Negative); Urine Protein 100 (2+) mg/dL (Neg-Trace)
[2024-04-06 04:40] LABS: Bacteria Urine Trace (None Seen); Hyaline Casts Urine 0-2 /LPF (0-2); RBC Urine >20 /HPF (0-2); WBC Urine 0-5 /HPF (0-5)
[2024-04-06 06:20] LABS: MANUAL DIFF FLAG NO
[2024-04-06 06:54] LABS: Basophils Absolute Auto 0.1 X10*3/uL (0.0-0.2); Basophils Percent Auto 0.6 % (0-2); Hematocrit 28.1 % (37.0-47.0); Hemoglobin 9.3 g/dl (12.0-16.0); Imm Gran Abs Auto 0.18 X10*3/uL (0.00-0.03); Imm Gran Pct Auto 1.7 % (0.0-0.4); Lymphocytes Absolute Auto 0.7 X10*3/uL (1.2-4.9); Lymphocytes Percent Auto 6.4 % (20-40); Mean Corpuscular HGB Conc 33.1 g/dl (31.0-35.0); Mean Corpuscular Hemoglobin 31.1 pg (27.0-33.0); Mean Platelet Volume 8.9 fL (9.4-12.3); Monocytes Absolute Auto 0.6 X10*3/uL (0.1-1.2); Monocytes Percent Auto 5.4 % (2-11); Neutrophils Absolute Auto 9.3 x10*3/uL (2.0-8.3); Neutrophils Percent Auto 85.9 % (45-73); Platelet Count 294 X10*3/uL (160-400); Red Blood Count 2.99 X10*6/uL (4.20-5.50); Red Cell Distribution Width 14.3 % (11.0-16.0); White Blood Count 10.9 X10*3/uL (4.8-10.8)
[2024-04-06 06:58] LABS: Anion Gap 15 (12-20); Blood Urea Nitrogen 32 mg/dL (9-16); Carbon Dioxide 28 mmol/L (22-29); Chloride 94 mmol/L (96-108); Creatinine Clr Calc Pharmacy 11.2; Estimated Glomerular Filt Rate 8; Glucose Random 152 mg/dL (60-115); Sodium 133 mmol/L (135-145)
--- NOTE | 2024-04-06 08:04 | PC.NURSE ---
K 5.07,NA 133,dialysis tommorrow per Dr. Barnes,Dr. Ozuna notified
[2024-04-06] MEDS: Albuterol/Iprat 2.5/0.5MG 3 ML AMPUL.NEB INHALE ×4 (08:43→19:47)
--- NOTE | 2024-04-06 09:07 | P.CONNP_ITS ---
History of Present Illness Reason for Consult Consult date: 04/06/24 Reason for consult: ESRD Chief Complaint Chief complaint: hypoxia, dyspnea History of Present Illness Narrative: RTANE CONSULTED for ESRD Management 78 y/o F adm with incr SOB after HD on 04/04 with cough COVID FLU neg CXR with bronchial thickening Overall feeling better but still w prod cough Review of Systems Review of Systems No fever, chills or weakness No chest pain, palpitation having shortness of breath and coughing No abdominal pain, nausea or vomiting No urinary symptoms No any rash or wounds Yes all other systems are reviewed and are negative Constitutional: Reports as per HPI [facility] Past Medical History Medical History ESRD (end stage renal disease) on dialysis Social History Social History Household Members: None Housing: House Do you presently have visiting nurse or other home services: No ([employer]) Patient Tobacco Use Status: Never used Tobacco Meds Allergies Allergy/AdvReac Type Severity Reaction Status Date / Time morphine [MORPHINE] Allergy Intermediate FAINTED Verified 04/05/24 11:09 Active Medications: Current Medications Acetaminophen (Acetaminophen 325 Mg Tablet) 650 mg PO Q6H PRN PRN Reason: Pain, Mild (Pain Scale 1-3), fever or headache Albuterol/Ipratropium (Albuterol/Iprat 2.5/0.5mg 3 Ml Ampul.Neb) 3 ml INHALE RQ4H WHILE AWAKE [facility] Last Admin: 04/06/24 08:43 Dose: 3 ml Benzonatate (Benzonatate 100 Mg Capsule) 100 mg PO TID [facility] Last Admin: 04/05/24 21:47 Dose: 100 mg Calcium Carbonate (Calcium Carbonate 750 Mg Tab.Chew) 750 mg PO Q4H PRN PRN Reason: Heartburn Furosemide (Furosemide 40 Mg Tablet) 240 mg PO SUTUTHSA@0900 [facility]; Protocol Gabapentin (Gabapentin 100 Mg Capsule) 200 mg PO BID [facility] Last Admin: 04/05/24 21:46 Dose: 200 mg Guaifenesin (Guaifenesin La 600 Mg Tab.Er.12h) 600 mg PO BID [facility] Last Admin: 04/05/24 21:47 Dose: 600 mg Heparin Sodium (Porcine) (Heparin Sodium,Porcine 5,000 Unit/Ml Vial) 5,000 unit SUBCUT Q12H [facility] Last Admin: 04/05/24 21:44 Dose: 5,000 unit Azithromycin 500 mg/ Sodium (Chloride) 250 mls @ 125 mls/hr IV Q24H [facility] Magnesium Hydroxide (Milk Of Magnesia 30 Ml Oral.Susp) 30 ml PO DAILY PRN PRN Reason: Constipation Magnesium Hydroxide (Milk Of Magnesia 30 Ml Oral.Susp) 30 ml PO DAILY PRN PRN Reason: Constipation Melatonin (Melatonin 3 Mg Tablet) 6 mg PO BEDTIME PRN PRN Reason: Insomnia Methylprednisolone Sodium Succinate (Methylprednisolone Sod Succ 40 Mg/Ml Vial) 40 mg IVPUSH Q24H [facility] Metoprolol Tartrate (Metoprolol Tartrate 12.5 Mg Halftab) 12.5 mg PO MOWEFR@0900 [facility]; Protocol Metoprolol Tartrate (Metoprolol Tartrate 12.5 Mg Halftab) 12.5 mg PO SUTUTHSA@0900 [facility]; Protocol Metoprolol Tartrate (Metoprolol Tartrate 12.5 Mg Halftab) 12.5 mg PO SUTUTHSA@2100 [facility]; Protocol Last Admin: 04/05/24 21:47 Dose: 12.5 mg Ondansetron HCl (Ondansetron Hcl 4 Mg/2 Ml Vial) 4 mg IVPUSH Q8H PRN PRN Reason: Nausea and Vomiting Sevelamer Carbonate (Sevelamer Carbonate Tablet 800 Mg Tablet) 800 mg PO DAILY PRN PRN Reason: snack Sevelamer Carbonate (Sevelamer Carbonate Tablet 800 Mg Tablet) 2,400 mg PO TIDWM [facility] Last Admin: 04/05/24 17:46 Dose: 2,400 mg Sodium Chloride (0.9 % Sodium Chloride Flush 3 Ml Syringe) 3 ml IVFLUSH [facility] Last Admin: 04/05/24 21:50 Dose: 3 ml Sodium Chloride (0.9 % Sodium Chloride Flush 3 Ml Syringe) 3 ml IVFLUSH [facility] Last Admin: 04/05/24 21:56 Dose: Not Given Home Medications ?Medication ?Instructions ?Recorded ?Confirmed ?Last Taken ?Type furosemide 80 mg tablet 240 mg PO SUTUTHSA@0900 04/05/24 04/05/24 Unknown History gabapentin 100 mg capsule 200 mg PO BID 04/05/24 04/05/24 Unknown History metolazone 10 mg tablet 5 mg PO DAILY 04/05/24 04/05/24 Unknown History metoprolol tartrate 25 mg tablet 12.5 mg PO MOWEFR@0900 04/05/24 04/05/24 Unknown History metoprolol tartrate 25 mg tablet 12.5 mg PO SUTUTHSA@0900 04/05/24 04/05/24 04/05/24 History metoprolol tartrate 25 mg tablet 12.5 mg PO SUTUTHSA@2100 04/05/24 04/05/24 Unknown History sevelamer carbonate 800 mg tablet 2,400 mg PO TIDWM 04/05/24 04/05/24 Unknown History (Renvela) sevelamer carbonate 800 mg tablet 800 mg PO DAILY PRN snack 04/05/24 04/05/24 Unknown History (Renvela) Physical Exam Vital Signs: Last Vital Signs Temp 98.6 F 04/06/24 07:57 Pulse 90 04/06/24 08:43 Resp 18 04/06/24 08:43 BP 121/55 L 04/06/24 07:57 Pulse Ox 94 04/06/24 07:57 O2 Del Method Nasal Cannula 04/06/24 07:57 O2 Flow Rate 2 04/06/24 07:57 BMI result Body Mass Index 39.0 Const Other: Constitutional : Awake, interactive, not in distress Neck : Normal inspection, Supple Cardiovascular : RRR, no JVP, trace lower extremity edema Respiratory : decreased bilateral air entry, no crackles, expiratory wheezes Gastrointestinal: soft, lax, Normal bowel sounds, Non tender Skin : Warm, Dry Neurological : Alert & oriented x3, No focal deficit General: cooperative, comfortable and no acute distress Orientation/consciousness: patient oriented x3 Limitations: no limitations HEENT Head: Yes normal to inspection, Yes normocephalic and Yes atraumatic Ears: hearing grossly normal bilaterally General nose exam: Normal external nose present Face and sinus: Yes normal facial exam Mouth: Normal oral and palatal mucosa present, oropharynx normal and moist mucous membranes Throat: Yes posterior oropharynx normal Eyes General: appearance normal, both eyes and all related structures Eyelids: Yes eyelids normal Conjunctivae: conjunctivae normal Sclerae: sclerae normal Pupils: Equal, round and reactive pupils present EOM: EOMs intact bilaterally Neck Neck: Yes normal visual inspection, Yes full ROM and Yes no lymphadenopathy Lymphatic: no lymphadenopathy noted Chest Chest palpation & inspection: normal inspection of the chest Resp Effort & Inspection: normal respiratory effort and able to speak in complete sentences Auscultation: clear to auscultation bilaterally, no crackles, no rales, no rhonchi and no wheezes Cardio Rate: regular rate Rhythm: regular rhythm Heart sounds: S1 normal heart sound present and S2 normal heart sound present GI Inspection: Yes normal to inspection Skin General skin exam: no rashes or lesions noted Trauma: no lacerations or abrasions Wounds: no wounds Neuro General: patient oriented x3 and moves all extremities Cranial nerves: Yes Equal, round and reactive pupils present Extrem General: Yes normal to inspection Right upper extremity: normal to inspection Left upper extremity: normal to inspection Right lower extremity: normal to inspection Left lower extremity: normal to inspection Results Lab Results 04/06/24 05:51 04/06/24 05:51 Lab results: Chemistry 04/05/24 04/05/24 04/06/24 11:29 21:45 05:51 Sodium 134 L 134 L 133 L Potassium 2.8 L* 4.3 D 4.0 Carbon Dioxide 32 H 25 28 BUN 20 H 24 H 32 H Creatinine 4.15 H* 4.66 H* 5.07 H* Calcium 10.2 9.7 10.0 Hematology 04/05/24 04/06/24 11:29 05:51 WBC 14.5 H 10.9 H Hgb 10.3 L 9.3 L Plt Count 340 294 Urinalysis 04/06/24 04:05 Urine Color Yellow Urine Appearance Cloudy Urine pH 6.5 Ur Specific [place] 1.015 Urine Protein 100 (2+) H Urine Glucose (UA) 100 H Urine Ketones Negative Urine Blood Large (3+) H Urine Nitrite Negative Ur Leukocyte Esterase Trace H Urine RBC >20 H Urine WBC 0-5 Ur Squamous Epith Cells 6-10 Hyaline Casts 0-2 Assessment and Plan (1) Hypoxia: Status: Acute (2) Acute dyspnea: Status: Acute (3) Elevated troponin: Status: Acute (4) Bronchitis: Status: Acute (5) ESRD (end stage renal disease) on dialysis: Status: Acute (6) Acute hypokalemia: Status: Acute Plan A 78 years old lady with PMH of ESRD on HD presents to the hospital with cough, SOB associated with wheezing ESRD: mwf ( HDU) Resp Symptoms: w/u in progress; clincially appears c/w bronchitis 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
[2024-04-06] MEDS: 0.9 % Sodium Chloride Flush 3 ML SYRINGE IVFLUSH ×4 (09:26→16:54)
[2024-04-06] MEDS: methylPREDNISolone Sod Succ 40 MG/ML VIAL IVPUSH (09:27)
[2024-04-06] MEDS: Heparin Sodium,Porcine 5,000 UNIT/ML VIAL 5000 UNIT SUBCUT ×2 (09:27→21:30)
[2024-04-06] MEDS: Sevelamer Carbonate Tablet 800 MG TABLET 2400 MG PO ×3 (09:29→16:55)
[2024-04-06] MEDS: Benzonatate 100 MG CAPSULE PO ×3 (09:29→21:30)
[2024-04-06] MEDS: Gabapentin 100 MG CAPSULE 200 MG PO ×2 (09:29→21:29)
[2024-04-06] MEDS: guaiFENesin LA 600 MG TAB.ER.12H PO ×2 (09:29→21:29)
[2024-04-06] MEDS: Metoprolol Tartrate 12.5 MG HALFTAB PO ×2 (09:51→21:29)
[2024-04-06] MEDS: Furosemide 40 MG TABLET 240 MG PO (09:53)
[2024-04-06] MEDS: Nystatin Powder 15 GM BOTTLE 1 APPL TOPICAL ×2 (11:28→21:30)
--- NOTE | 2024-04-06 14:19 | P.PNIM_ITS ---
Subjective Subjective Date of Service: 04/06/24 Interval History: seen and evaluated feels better still coughing and has dyspnea Review of Systems Review of Systems: Yes all other systems are reviewed and are negative Physical Exam 2 Vital Signs: Vital Signs: Last Vital Signs Temp 98.6 F 04/06/24 07:57 Pulse 81 04/06/24 11:50 Resp 18 04/06/24 11:50 BP 148/71 H 04/06/24 09:53 Pulse Ox 94 04/06/24 07:57 O2 Del Method Nasal Cannula 04/06/24 07:57 O2 Flow Rate 2 04/06/24 07:57 BMI result Body Mass Index 39.0 Const: Other: Constitutional : Awake, interactive, not in distress Neck : Normal inspection, Supple Cardiovascular : RRR, no JVP, trace lower extremity edema Respiratory : decreased bilateral air entry, no crackles, expiratory wheezes Gastrointestinal: soft, lax, Normal bowel sounds, Non tender Skin : Warm, Dry Neurological : Alert & oriented x3, No focal deficit Objective Data Active Medications Acetaminophen (Acetaminophen 325 Mg Tablet) 650 mg PO Q6H PRN PRN Reason: Pain, Mild (Pain Scale 1-3), fever or headache Albuterol/Ipratropium (Albuterol/Iprat 2.5/0.5mg 3 Ml Ampul.Neb) 3 ml INHALE RQ4H WHILE AWAKE REPLACED BY [facility] Last Admin: 04/06/24 11:48 Dose: 3 ml Documented By: ZOE Benzonatate (Benzonatate 100 Mg Capsule) 100 mg PO TID REPLACED BY [facility] Last Admin: 04/06/24 09:29 Dose: 100 mg Documented By: EM Calcium Carbonate (Calcium Carbonate 750 Mg Tab.Chew) 750 mg PO Q4H PRN PRN Reason: Heartburn Furosemide (Furosemide 40 Mg Tablet) 240 mg PO SUTUTHSA@0900 REPLACED BY [facility]; Protocol Last Admin: 04/06/24 09:53 Dose: 240 mg Documented By: EM Gabapentin (Gabapentin 100 Mg Capsule) 200 mg PO BID [facility]PL[facility]ED BY [facility] Last Admin: 04/06/24 09:29 Dose: 200 mg Documented By: EM Guaifenesin (Guaifenesin La 600 Mg Tab.Er.12h) 600 mg PO BID [facility]PL[facility]ED BY [facility] Last Admin: 04/06/24 09:29 Dose: 600 mg Documented By: EM Heparin Sodium (Porcine) (Heparin Sodium,Porcine 5,000 Unit/Ml Vial) 5,000 unit SUBCUT Q12H REPLACED BY [facility] Last Admin: 04/06/24 09:27 Dose: 5,000 unit Documented By: EM Azithromycin 500 mg/ Sodium (Chloride) 250 mls @ 125 mls/hr IV Q24H REPLACED BY [facility] Lidocaine HCl (Lidocaine 4 % Cream Kit) 1 appl TOPICAL ONCE PRN; Protocol PRN Reason: Pain, Mild (Pain Scale 1-3) Magnesium Hydroxide (Milk Of Magnesia 30 Ml Oral.Susp) 30 ml PO DAILY PRN PRN Reason: Constipation Magnesium Hydroxide (Milk Of Magnesia 30 Ml Oral.Susp) 30 ml PO DAILY PRN PRN Reason: Constipation Melatonin (Melatonin 3 Mg Tablet) 6 mg PO BEDTIME PRN PRN Reason: Insomnia Methylprednisolone Sodium Succinate (Methylprednisolone Sod Succ 40 Mg/Ml Vial) 40 mg IVPUSH Q24H REPLACED BY [facility] Last Admin: 04/06/24 09:27 Dose: 40 mg Documented By: EM Metoprolol Tartrate (Metoprolol Tartrate 12.5 Mg Halftab) 12.5 mg PO MOWEFR@0900 REPLACED BY [facility]; Protocol Metoprolol Tartrate (Metoprolol Tartrate 12.5 Mg Halftab) 12.5 mg PO SUTUTHSA@0900 REPLACED BY [facility]; Protocol Last Admin: 04/06/24 09:51 Dose: 12.5 mg Documented By: EM Metoprolol Tartrate (Metoprolol Tartrate 12.5 Mg Halftab) 12.5 mg PO SUTUTHSA@2100 REPLACED BY [facility]; Protocol Last Admin: 04/05/24 21:47 Dose: 12.5 mg Documented By: GURMEET Nystatin (Nystatin Powder 15 Gm Bottle) 1 appl TOPICAL BID REPLACED BY [facility]; Protocol Last Admin: 04/06/24 11:28 Dose: 1 appl Documented By: EM Ondansetron HCl (Ondansetron Hcl 4 Mg/2 Ml Vial) 4 mg IVPUSH Q8H PRN PRN Reason: Nausea and Vomiting Sevelamer Carbonate (Sevelamer Carbonate Tablet 800 Mg Tablet) 800 mg PO DAILY PRN PRN Reason: snack Sevelamer Carbonate (Sevelamer Carbonate Tablet 800 Mg Tablet) 2,400 mg PO TIDWM REPLACED BY [facility] Last Admin: 04/06/24 12:19 Dose: 2,400 mg Documented By: EM Sodium Chloride (0.9 % Sodium Chloride Flush 3 Ml Syringe) [facility] Last Admin: 04/06/24 09:32 Dose: 3 ml Documented By: EM Sodium Chloride (0.9 % Sodium Chloride Flush 3 Ml Syringe) 3 [facility] Last Admin: 04/06/24 09:33 Dose: Not Given Documented By: EM Non-Admin Reason: already administered Labs 04/06/24 05:51 04/06/24 05:51 Labs: Laboratory Results - last 24 hr 04/05/24 04/05/24 04/06/24 15:41 21:45 04:05 MCV MCH MCHC RDW Plt Count MPV Immature Gran % (Auto) Neut % (Auto) Lymph % (Auto) [place] % (Auto) Eos % (Auto) Baso % (Auto) Lymph # (Auto) [place] # (Auto) Eos # (Auto) Baso # (Auto) Abs Immat Gran (auto) Absolute Neuts (auto) Absolute Nucleated RBC Nucleated RBC % (auto) Hold Blue Top Anion Gap 22 H Estim Creat Clear Calc 12.2 Estimated GFR 9 Random Glucose 213 H Calcium 9.7 Magnesium 1.9 Troponin I High Sens 119.4 H* Urine Color Yellow Urine Appearance Cloudy Urine pH 6.5 Ur Specific [place] 1.015 Urine Protein 100 (2+) H Urine Glucose (UA) 100 H Urine Ketones Negative Urine Blood Large (3+) H Urine Nitrite Negative Ur Leukocyte Esterase Trace H Urine RBC >20 H Urine WBC 0-5 Ur Squamous Epith Cells 6-10 Urine Bacteria Trace Hyaline Casts 0-2 04/06/24 05:51 MCV 94.0 MCH 31.1 MCHC 33.1 RDW 14.3 Plt Count 294 MPV 8.9 L Immature Gran % (Auto) 1.7 H Neut % (Auto) 85.9 H Lymph % (Auto) 6.4 L [place]unn[place] % (Auto) 5.4 Eos % (Auto) 0.0 Baso % (Auto) 0.6 Lymph # (Auto) 0.7 L [place] # (Auto) 0.6 Eos # (Auto) 0.0 Baso # (Auto) 0.1 Abs Immat Gran (auto) 0.18 H Absolute Neuts (auto) 9.3 H Absolute Nucleated RBC 0.000 Nucleated RBC % (auto) 0.0 Hold Blue Top SEE NOTE Anion Gap 15 Estim Creat Clear Calc 11.2 Estimated GFR 8 Random Glucose 152 H Calcium 10.0 Magnesium Troponin I High Sens Urine Color Urine Appearance Urine pH Ur Specific [place] Urine Protein Urine Glucose (UA) Urine Ketones Urine Blood Urine Nitrite Ur Leukocyte Esterase Urine RBC Urine WBC Ur Squamous Epith Cells Urine Bacteria Hyaline Casts Assessment and Plan (1) Acute hypokalemia: Status: Acute (2) ESRD (end stage renal disease) on dialysis: Status: Acute (3) Bronchitis: Status: Acute (4) Hypoxia: Status: Acute Plan A 78 years old lady with PMH of ESRD on HD among others who presents to the hospital with cough, SOB associated with wheezing for 3 days. Acute hypoxia 2/2 acute bronchitis likely viral in origin negative RSV,Flu and Covid CXR not showing clear infiltrates, has more crackles on the right side continue steroids NEbulizers Empirical IV Azithromycin wean O2 down as tolerated [place] PT eval ESRD on HD [facility] Nephrology following continue Lasix acute Hypokalemia resolved, follow BMP Elevated Trop likely 2/2 hypoxia, type 2 trended down with no EKG changes or chest pain Monitor DVT PPx Heparin SC The patient will need overnight hospital stay for treatment of acute hypoxia pending clinical improvement and PT evaluation. Quality Stroke Does the patient have a stroke diagnosis?: No VTE Prior VTE?: No VTE Risk Level:: Medical - moderate - high VTE Device Contraindication: Treatment Not Indicated VTE Drug Contraindication: N/A - Med Ordered
[2024-04-06] MEDS: Azithromycin 500 MG in 0.9 % Sodium Chloride 250 ML 125 MG IV (14:43)
--- NOTE | 2024-04-06 16:26 | MHC.CM.PN ---
CM ATTEMPTED TO SEE PT WHO WAS RECEIVING A BREATHING TREATMENT AND ASKED THAT WE RETURN AT A LATER TIME
[2024-04-06] MEDS: ondansetron HCL 4 MG/2 ML VIAL IVPUSH (21:49)
[2024-04-07] VITALS (9 sets, daily range): BP systolic 101–151; BP diastolic 49–84; PULSE 98–104; RESP 15–20; TEMP 36.1–36.4; O2SAT 82–98
[2024-04-07] MEDS: 0.9 % Sodium Chloride Flush 3 ML SYRINGE IVFLUSH ×4 (00:07→20:33)
[2024-04-07] MEDS: guaiFENesin 100 MG/5 ML LIQUID PO ×2 (00:25→22:45)
[2024-04-07] MEDS: Calcium Carbonate 750 MG TAB.CHEW PO ×2 (03:08→19:29)
[2024-04-07] MEDS: Heparin Sodium,Porcine 5,000 UNIT/ML VIAL 5000 UNIT SUBCUT ×2 (07:38→19:29)
[2024-04-07] MEDS: ondansetron HCL 4 MG/2 ML VIAL IVPUSH (07:39)
[2024-04-07] MEDS: methylPREDNISolone Sod Succ 40 MG/ML VIAL IVPUSH (07:44)
[2024-04-07] MEDS: guaiFENesin LA 600 MG TAB.ER.12H PO ×2 (07:47→20:30)
[2024-04-07] MEDS: Metoprolol Tartrate 12.5 MG HALFTAB PO (07:47)
[2024-04-07] MEDS: Gabapentin 100 MG CAPSULE 200 MG PO ×2 (07:47→20:30)
[2024-04-07] MEDS: Benzonatate 100 MG CAPSULE 200 MG PO ×3 (07:48→20:30)
[2024-04-07] MEDS: Nystatin Powder 15 GM BOTTLE 1 APPL TOPICAL ×2 (07:49→20:33)
[2024-04-07] MEDS: Albuterol/Iprat 2.5/0.5MG 3 ML AMPUL.NEB INHALE ×4 (08:10→20:16)
[2024-04-07] MEDS: cefTRIAXone sodium 1 GM in 0.9 % Sodium Chloride 50 ML IV (10:19)
[2024-04-07] MEDS: metOLazone 5 MG TABLET PO (11:53)
--- NOTE | 2024-04-07 12:01 | HO.PM.IMPN ---
Subjective Subjective Date of Service: 04/07/24 Interval History: seen and evaluated feels better still coughing and has dyspnea repeat CXR showing evolving infiltrate Review of Systems Review of Systems: Yes all other systems are reviewed and are negative Physical Exam Vital Signs: Vital Signs: Last Vital Signs Temp 97.1 F 04/07/24 07:12 Pulse 100 04/07/24 11:35 Resp 20 04/07/24 11:35 BP 151/84 H 04/07/24 07:12 Pulse Ox 82 L 04/07/24 10:21 O2 Del Method Nasal Cannula 04/07/24 07:12 O2 Flow Rate 2 04/07/24 07:12 BMI result Body Mass Index 39.0 Const: Other: Constitutional : Awake, interactive, not in distress Neck : Normal inspection, Supple Cardiovascular : RRR, no JVP, trace lower extremity edema Respiratory : decreased bilateral air entry, no crackles, expiratory wheezes Gastrointestinal: soft, lax, Normal bowel sounds, Non tender Skin : Warm, Dry Neurological : Alert & oriented x3, No focal deficit Objective Data Active Medications Acetaminophen (Acetaminophen 325 Mg Tablet) 650 mg PO Q6H PRN PRN Reason: Pain, Mild (Pain Scale 1-3), fever or headache Albuterol/Ipratropium (Albuterol/Iprat 2.5/0.5mg 3 Ml Ampul.Neb) 3 ml INHALE RQ4H WHILE AWAKE [facility] Last Admin: 04/07/24 11:35 Dose: 3 ml Documented By: LELE Benzonatate (Benzonatate 100 Mg Capsule) 200 mg PO TID [facility] Last Admin: 04/07/24 07:48 Dose: 200 mg Documented By: EM Calcium Carbonate (Calcium Carbonate 750 Mg Tab.Chew) 750 mg PO Q4H PRN PRN Reason: Heartburn Last Admin: 04/07/24 03:08 Dose: 750 mg Documented By: MANOLO Furosemide (Furosemide 40 Mg Tablet) 240 mg PO SUTUTHSA@0900 [facility]; Protocol Last Admin: 04/06/24 09:53 Dose: 240 mg Documented By: EM Gabapentin (Gabapentin 100 Mg Capsule) 200 mg PO BID [facility] Last Admin: 04/07/24 07:47 Dose: 200 mg Documented By: EM Guaifenesin (Guaifenesin La 600 Mg Tab.Er.12h) 600 mg PO BID [facility] Last Admin: 04/07/24 07:47 Dose: 600 mg Documented By: EM Guaifenesin (Guaifenesin 100 Mg/5 Ml Liquid) 5 ml PO Q4H PRN PRN Reason: Cough Last Admin: 04/07/24 00:25 Dose: 5 ml Documented By: MANOLO Heparin Sodium (Porcine) (Heparin Sodium,Porcine 5,000 Unit/Ml Vial) 5,000 unit SUBCUT Q12H [facility] Last Admin: 04/07/24 07:38 Dose: 5,000 unit Documented By: EM Azithromycin 500 mg/ Sodium (Chloride) 250 mls @ 125 mls/hr IV Q24H [facility] Last Infusion: 04/06/24 16:45 Dose: Infused Documented By: EM Ceftriaxone Sodium 1 gm/ (Sodium Chloride) 50 mls @ 100 mls/hr IV Q24H [facility] Last Admin: 04/07/24 10:19 Dose: 100 mls/hr Documented By: EM Lidocaine HCl (Lidocaine 4 % Cream Kit) 1 appl TOPICAL ONCE PRN; Protocol PRN Reason: Pain, Mild (Pain Scale 1-3) Magnesium Hydroxide (Milk Of Magnesia 30 Ml Oral.Susp) 30 ml PO DAILY PRN PRN Reason: Constipation Magnesium Hydroxide (Milk Of Magnesia 30 Ml Oral.Susp) 30 ml PO DAILY PRN PRN Reason: Constipation Melatonin (Melatonin 3 Mg Tablet) 6 mg PO BEDTIME PRN PRN Reason: Insomnia Methylprednisolone Sodium Succinate (Methylprednisolone Sod Succ 40 Mg/Ml Vial) 40 mg IVPUSH Q24H [facility] Last Admin: 04/07/24 07:44 Dose: 40 mg Documented By: EM Metolazone (Metolazone 5 Mg Tablet) 5 mg PO DAILY [facility] Last Admin: 04/07/24 11:53 Dose: 5 mg Documented By: EM Metoprolol Tartrate (Metoprolol Tartrate 12.5 Mg Halftab) 12.5 mg PO MOWEFR@0900 [facility]; Protocol Last Admin: 04/07/24 07:47 Dose: 12.5 mg Documented By: EM Metoprolol Tartrate (Metoprolol Tartrate 12.5 Mg Halftab) 12.5 mg PO SUTUTHSA@0900 [facility]; Protocol Last Admin: 04/06/24 09:51 Dose: 12.5 mg Documented By: EM Metoprolol Tartrate (Metoprolol Tartrate 12.5 Mg Halftab) 12.5 mg PO SUTUTHSA@2100 [facility]; Protocol Last Admin: 04/06/24 21:29 Dose: 12.5 mg Documented By: MANOLO Nystatin (Nystatin Powder 15 Gm Bottle) 1 appl TOPICAL BID [facility]; Protocol Last Admin: 04/07/24 07:49 Dose: 1 appl Documented By: EM Ondansetron HCl (Ondansetron Hcl 4 Mg/2 Ml Vial) 4 mg IVPUSH Q8H PRN PRN Reason: Nausea and Vomiting Last Admin: 04/07/24 07:39 Dose: 4 mg Documented By: EM Sevelamer Carbonate (Sevelamer Carbonate Tablet 800 Mg Tablet) 800 mg PO DAILY PRN PRN Reason: snack Sevelamer Carbonate (Sevelamer Carbonate Tablet 800 Mg Tablet) 2,400 mg PO TIDWM [facility] Last Admin: 04/07/24 08:41 Dose: Not Given Documented By: EM Non-Admin Reason: Patient Refused Sodium Chloride (0.9 % Sodium Chloride Flush 3 Ml Syringe) 3 ml IVFLUSH [facility] Last Admin: 04/07/24 07:39 Dose: 3 ml Documented By: EM Sodium Chloride (0.9 % Sodium Chloride Flush 3 Ml Syringe) 3 ml IVFLUSH [facility] Last Admin: 04/07/24 07:48 Dose: Not Given Documented By: EM Non-Admin Reason: Previously Administered Labs 04/06/24 05:51 04/06/24 05:51 Microbiology Microbiology Results: Microbiology 04/05/24 12:46 Blood Culture - Preliminary Blood - Venous No growth after 24 hours. 04/05/24 12:54 Blood Culture - Preliminary Blood - Venous No growth after 24 hours. Assessment and Plan (1) Acute hypokalemia: Status: Acute (2) ESRD (end stage renal disease) on dialysis: Status: Acute (3) Bronchitis: Status: Acute (4) Pneumonia: Status: Acute Plan A 78 years old lady with PMH of ESRD on HD among others who presents to the hospital with cough, SOB associated with wheezing for 3 days. Acute hypoxia 2/2 acute bronchitis likely viral in origin negative RSV,Flu and Covid, pending rest repeated CXR showing infiltrates continue steroids NEbulizers Start Ceftriaxone along with IV Azithromycin wean O2 down as tolerated [place] PT eval ESRD on HD [facility] following continue Lasix and Metolazone acute Hypokalemia resolved, follow BMP Elevated Trop likely 2/2 hypoxia, type 2 trended down with no EKG changes or chest pain Monitor DVT PPx Heparin SC The patient will need overnight hospital stay for treatment of acute hypoxia pending clinical improvement and PT evaluation. Quality Stroke Does the patient have a stroke diagnosis?: No VTE Prior VTE?: No VTE Risk Level:: Medical - moderate - high VTE Device Contraindication: Treatment Not Indicated VTE Drug Contraindication: N/A - Med Ordered
--- NOTE | 2024-04-07 12:11 | P.PNNP_ITS ---
Subjective Subjective Date of Service: 04/07/24 Principal diagnosis: ESRD, Hypoxia Interval history: seen and examined c/o SOB Physical Exam 2 Vital Signs: Vital Signs: Last Vital Signs Temp 97.1 F 04/07/24 07:12 Pulse 100 04/07/24 11:35 Resp 20 04/07/24 11:35 BP 151/84 H 04/07/24 07:12 Pulse Ox 82 L 04/07/24 10:21 O2 Del Method Nasal Cannula 04/07/24 07:12 O2 Flow Rate 2 04/07/24 07:12 BMI result Body Mass Index 39.0 Const: General: no acute distress, alert and awake Neck: Neck: Yes supple Resp: Auscultation: diminished lung sounds Cardio: Heart sounds: S1 normal heart sound present and S2 normal heart sound present GI: Palpation (GI): Soft to palpation and nontender Extrem: Right lower extremity: normal to inspection Left lower extremity: n ormal to inspection Objective Data Labs 04/06/24 05:51 04/06/24 05:51 Microbiology Microbiology Results: Microbiology 04/05/24 12:46 Blood - Venous Blood Culture - Preliminary No growth after 24 hours. 04/05/24 12:54 Blood - Venous Blood Culture - Preliminary No growth after 24 hours. 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 Progress Note: Quality Stroke Does the patient have a stroke diagnosis?: No
[2024-04-07] MEDS: Lidocaine 4 % Cream KIT 1 APPL TOPICAL (13:07)
[2024-04-07] MEDS: Sevelamer Carbonate Tablet 800 MG TABLET 2400 MG PO ×2 (13:08→18:02)
--- NOTE | 2024-04-07 15:44 | MHC.CM.PN ---
Addendum entered by Aletha Arriola RN 04/07/24 16:12: Patient still in HD. CM will f/u tomorrow. Original Note: CM attempted to meet with patient x2. Patient in HD. CM will continue attempts to complete OBJECTIVE C DEVELOPER.
[2024-04-07] MEDS: Azithromycin 500 MG in 0.9 % Sodium Chloride 250 ML 125 MG IV (18:03)
--- NOTE | 2024-04-07 18:11 | PC.NURSE ---
Patient back in room from dialysis
[2024-04-07] MEDS: Acetaminophen 325 MG TABLET 650 MG PO (22:45)
[2024-04-08] MEDS: Albuterol/Iprat 2.5/0.5MG 3 ML AMPUL.NEB INHALE ×3 (01:01→11:25)
[2024-04-08 01:02] VITALS: PULSE 112; RESP 16; O2SAT 98
[2024-04-08] MEDS: 0.9 % Sodium Chloride Flush 3 ML SYRINGE IVFLUSH ×3 (01:16→08:28)
[2024-04-08 07:34] VITALS: BP 125/56; PULSE 104; RESP 16; TEMP 36.1; O2SAT 97
[2024-04-08 07:45] VITALS: PULSE 104; RESP 16; O2SAT 98
[2024-04-08] MEDS: methylPREDNISolone Sod Succ 40 MG/ML VIAL IVPUSH (08:25)
[2024-04-08] MEDS: Heparin Sodium,Porcine 5,000 UNIT/ML VIAL 5000 UNIT SUBCUT (08:29)
[2024-04-08] MEDS: Furosemide 40 MG TABLET 240 MG PO (08:29)
[2024-04-08] MEDS: Sevelamer Carbonate Tablet 800 MG TABLET 2400 MG PO ×2 (08:34→11:55)
[2024-04-08] MEDS: Benzonatate 100 MG CAPSULE 200 MG PO (08:35)
[2024-04-08] MEDS: Gabapentin 100 MG CAPSULE 200 MG PO (08:35)
[2024-04-08] MEDS: metOLazone 5 MG TABLET PO (08:36)
[2024-04-08] MEDS: guaiFENesin LA 600 MG TAB.ER.12H PO (08:36)
[2024-04-08] MEDS: Metoprolol Tartrate 12.5 MG HALFTAB PO ×2 (08:36→08:39)
[2024-04-08] MEDS: Nystatin Powder 15 GM BOTTLE 1 APPL TOPICAL (08:37)
--- NOTE | 2024-04-08 09:06 | MHC.CM.PN ---
Addendum entered by Aletha Arriola RN 04/08/24 10:25: PER MD ROUNDS PATIENT MEDICALLY CLEARED FOR DC TO STR. BLS SCHEDULED TO [facility] AT 1PM. RN AND PATIENT AWARE. Original Note: IMM DELIVERED. PATIENT LIVES IN AN APT ALONE. 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 ALSO REPORTS SHE HAS SERVICES THROUGH [facility], BUT CANNOT RECALL WHAT SERVICES SPECIFICALLY. USES W/C MOST TIMES, USES WALKER WHEN FEELING WELL ENOUGH. HD @ [facility] M/W/F. CHAIR TIME 11AM. TRANSPORT VIA CHAIR VAN. NO PCP. STATES SHE IS ON A WAIT LIST. G PHYSICIAN BROCHURE PROVIDED. HCP ON FILE AND VERIFIED. [facility] IS [facility]. DP: PT REC STR. PATIENT PREFERS [facility] AND HAS ACCEPTED THEIR BED OFFER. TRANSPORT VIA BLS. CM WILL CONTINUE TO FOLLOW.
[2024-04-08] MEDS: cefTRIAXone sodium 1 GM in 0.9 % Sodium Chloride 50 ML IV (09:16)
[2024-04-08 10:09] VITALS: O2SAT 93
[2024-04-08 11:16] LABS: Adenovirus PCR Not Detected (Not Detect.); Bordetella parapertussis PCR Not Detected (Not Detect.); Bordetella pertussis PCR Not Detected (Not Detect.); Chlamydia pneumoniae PCR Not Detected (Not Detect.); Coronavirus 229E PCR Not Detected (Not Detect.); Coronavirus HKU1 PCR Not Detected (Not Detect.); Coronavirus NL63 PCR Not Detected (Not Detect.); Coronavirus OC43 PCR Not Detected (Not Detect.); Human metapneumovirus PCR Not Detected (Not Detect.); Influenza A PCR Not Detected (Not Detect.); Influenza B PCR Not Detected (Not Detect.); Mycoplasma pneumoniae PCR Not Detected (Not Detect.); Parainfluenza 1 PCR Not Detected (Not Detect.); Parainfluenza 2 PCR Not Detected (Not Detect.); Parainfluenza 3 PCR Not Detected (Not Detect.); Parainfluenza 4 PCR Not Detected (Not Detect.); RSV PCR Not Detected (Not Detect.); Rhino/Enterovirus PCR Not Detected (Not Detect.)
[2024-04-08 11:25] VITALS: PULSE 98; RESP 16; O2SAT 94
[2024-04-08 12:06] LABS: SARS-CoV-2 PCR Not Detected (Not Detect.)
--- NOTE | 2024-04-08 12:17 | P.DS_ITS ---
DS: Providers Provider Date of Service: 04/08/24 Date of admission: 04/05/24 17:48 Primary care physician: Unknown Physician Consults: 04/05/24 18:03 Consult to Nephrology Routine Consulting Provider: [facility] Reason for consultation: Need of dialysis DS: Diagnosis Discharge Diagnosis (1) ESRD (end stage renal disease): Status: Acute (2) Anemia: Status: Acute (3) Pneumonia: Status: Acute (4) Acute hypokalemia: Status: Acute (5) Hypoxia: Status: Acute (6) Acute dyspnea: Status: Acute (7) Elevated troponin: Status: Acute (8) Bronchitis: Status: Acute DS: Summary Hospital Course Hospital Course: Admission note HPI A 78 years old lady with PMH of ESRD on HD among others who presents to the hospital with cough, SOB associated with wheezing for 3 days. The patient report that she started feeling SOB 3 days ago that worsened over the last few days. she had dialysis yesterday but did not feel better and continued to have coughing episodes and dyspnea with minimal exertion. No chest pain, palpitations, nausea, vomiting, diarrhea or urinary symptoms. She reports a fall last week that she did not move much since then. She does dialysis MWF and follows with dr Barnes, last HD was Sunday. In ED she was found hypoxic to late 80s on room air. started on nebulizer , antibiotics, steroids and O2 supplement. Admitted for further treatment. Hospital course # Acute hypoxia secondary to acute bronchitis with pneumonia Negative viral panel. repeated CXR showed infiltrates in the right side suggesting progression of pneumonia. Treated with IV antibiotics Ceftriaxone along with Azithromycin , IV steroids and bronchodilator NEbulizers. she was weaned down O2 to 1L only saturating mid 90s upon discharge. can continue weaning down as tolerated at nursing facility. she also received dialysis session as planned as her repeat CXR showed vascular congestion likely from stepan al failure with improvement in dyspnea post HD. # Falls , evaluated by PT who recommended short term rehab placement. # ESRD on HD, MWF, Nephrology followed her during the stay as she had 1 session on Sunday. continue Lasix and Metolazone # acute Hypokalemia, resolved, follow BMP # Elevated Trop on admission, likely 2/2 hypoxia, type 2, trended down with no EKG changes or chest pain Discharge plan Continue Antibiotics as prescribed Cough medicine around the clock 5 more days of Prednisone Nystatin for fungal rash Albuterol inhaler as needed for wheezing or shortness of breath wean down O2 as tolerated to room air at the facility Time Attestation Discharge Coordination Time (in mins): 43 Quality: Safe Use of Opioids Does Pt have an Active Cancer Diagnosis on the Problem List?: No Quality: Stroke Does the patient have a stroke diagnosis?: No Physical Exam Vital Signs: Vital Signs: Last Vital Signs Temp 96.9 F 04/08/24 07:34 Pulse 98 04/08/24 11:25 Resp 16 04/08/24 11:25 BP 125/56 L 04/08/24 07:34 Pulse Ox 93 04/08/24 10:09 O2 Del Method Nasal Cannula 04/08/24 07:34 O2 Flow Rate 1 04/08/24 07:34 BMI result Body Mass Index 39.0 Const: Other: Constitutional : Awake, interactive, not in distress Neck : Normal inspection, Supple Cardiovascular : RRR, no JVP, trace lower extremity edema Respiratory : fair bilateral air entry, no crackles, no wheezes Gastrointestinal: soft, lax, Normal bowel sounds, Non tender Skin : Warm, Dry Neurological : Alert & oriented x3, No focal deficit DS: Data Data Completed and Pending Labs on day of discharge: Laboratory Results - last 24 hr 04/07/24 18:05 Respiratory Panel [place] See Note Adenovirus (Rapid PCR) Not Detected B.pert (TEM-PCR) Not Detected B.parapertussis DNA PCR Not Detected C. pneumoniae DNA (PCR) Not Detected Coronavirus OC43 (PCR) Not Detected Coronavirus HKU1 (PCR) Not Detected Coronavirus 229E (PCR) Not Detected Coronavirus NL63 (PCR) Not Detected Human Metapneumovir PCR Not Detected Influenza A (RT-PCR) Not Detected Influenza B (RT-PCR) Not Detected M. pneumoniae (PCR) Not Detected Parainfluenza 1 (PCR) Not Detected Parainfluenza 2 (PCR) Not Detected Parainfluenza 3 (PCR) Not Detected Parainfluenza 4 (PCR) Not Detected RSV (PCR) Not Detected Entero/Rhino (PCR) Not Detected SARS-CoV-2 RNA (RT-PCR) Not Detected Preliminary micro results at discharge 04/05/24 12:54 Blood Culture - Preliminary Blood - Venous No growth after 48 hours. 04/05/24 12:46 Blood Culture - Preliminary Blood - Venous No growth after 48 hours. Imaging Chest x-ray: Radiologist's impression: ITS Impressions Chest X-Ray 04/05/24 12:16 IMPRESSION: Slight bronchial thickening. Chest X-Ray 04/07/24 08:21 IMPRESSION: 1. New patchy density right upper lobe. 2. Peribronchial thickening and bibasilar atelectasis. 3. Slight increase in interstitial markings could indicate some superimposed vascular congestion. Discharge Plan Discharge Anticipated Discharge Date/Time: 04/08/24 12:09 Patient Disposition: Xfer SNF Discharge Diagnosis: Pneumonia Hypoxia Referrals: [facility] [Outside] - 1 Day (SHORT TERM REHAB) Physician,Scooby J [Primary Care Provider] - 1 Week Discharge Medications: New benzonatate 100 mg Capsule 200 mg PO TID Qty: 30 0RF nystatin 100,000 unit/gram Powder 1 appl topical BID Qty: 30 1RF Protocol: Apply to: Apply to: affected areas guaifenesin [Mucinex] 600 mg Tablet Extended Release 12hr 600 mg PO BID Qty: 20 0RF azithromycin 500 mg tablet 500 mg PO DAILY 5 Days Qty: 5 0RF cefuroxime axetil 500 mg tablet 500 mg PO POST DIALYSIS Qty: 3 0RF prednisone 20 mg tablet 40 mg PO DAILY Qty: 10 0RF albuterol sulfate 90 mcg/actuation HFA aerosol inhaler 2 puff inhalation Q6H PRN (Reason: shortness of breath or wheezing) Qty: 6.7 0RF Continued furosemide 80 mg tablet 240 mg PO SUTUTHSA@0900 gabapentin 100 mg capsule 200 mg PO BID metolazone 10 mg tablet 5 mg PO DAILY metoprolol tartrate 25 mg tablet 12.5 mg PO SUTUTHSA@0900 sevelamer carbonate [Renvela] 800 mg tablet 2,400 mg PO TIDWM sevelamer carbonate [Renvela] 800 mg tablet 800 mg PO DAILY PRN (Reason: snack) metoprolol tartrate 25 mg tablet 12.5 mg PO MOWEFR@0900 metoprolol tartrate 25 mg tablet 12.5 mg PO SUTUTHSA@2100 Discharge Orders: Discharge Order (Routine); Ordered 04/08/24 Ordered By: Telma Ozuna Diet: Low salt diet Activity on Discharge: As tolerated Stand Alone Forms: Patient Portal Discharge page Print Language: Nepalese Care Plan Goals: Continue Antibiotics as prescribed Cough medicine around the clock 5 more days of Prednisone Nystatin for fungal rash Albuterol inhaler as needed for wheezing or shortness of breath wean down O2 as tolerated to room air at the facility Health Concerns: Read below Plan of Treatment: Read below Assessment: Read below
--- NOTE | 2024-04-08 13:46 | P.CDIM_ITS ---
PROVIDER RESPONSE TEXT: To clarify, the appropriate diagnosis supported by the clinical indicators: Hypoxia QUERY TEXT: PHYSICIAN'S DOCUMENTATION REQUEST Date of Query: 04/07/2024 08:09 AM EDT Patient Name: Simran Yip Admit Date: 04/05/2024 Dear Telma Ozuna, A review of the medical record indicates additional documentation may be needed. Please review below and update the documentation accordingly. Clinical Indicators: presented with dyspnea and Acute Bronchitis respiratory rate on 04/05/24: 28 oxygen at 1 L NC on 04/05/24 and 2L on 04/06/24 Per MD progress note 04/06/24: Hypoxia Please clarify which of the following accurately represents the patient's respiratory status: Acute respiratory failure Please specify if Hypoxic, Hypercapnic, or Hypoxic and hypercapnic Hypoxia Other (explain) Clinically unable to determine (explain) Thank you, Tracy Guzmán RN Use of terms such as suspected, likely, concern for, or probable (associated with a specific diagnosi s that is being evaluated, monitored, or treated as if it exists) are acceptable and can be coded in the inpatient se tting, when documented at the time of discharge. Please use your independent medical judgment in providing your response. THIS QUERY IS PART OF THE PERMANENT MEDICAL RECORD
== END 2024-04-08 13:09 | disposition skilled nursing facility (03) | DRG 202 ==
LOC: HO.ED 14:58 → HO.EDOVER 17:50 → HO.S3 19:53
PROVIDERS: Internal Medicine; Physician Assistant Medical; Admitting Provider Student in an Organized Health Care Education/Training Program; Emergency Provider Emergency Medicine; Visit Provider Student in an Organized Health Care Education/Training Program
DX: J20.8 Acute bronchitis due to other specified organisms (principal); J18.9 Pneumonia, unspecified organism; N18.6 End stage renal disease; B02.29 Other postherpetic nervous system involvement; R09.02 Hypoxemia; Z99.2 Dependence on renal dialysis; E87.6 Hypokalemia; D63.1 Anemia in chronic kidney disease; Z20.822 Contact with and (suspected) exposure to COVID-19; Z79.899 Other long term (current) drug therapy
CPT/HCPCS: 0241U; 36415; 71045; 80048; 80053; 81001; 83605; 83690; 83735; 83880; 84484; 85025; 85610; 87040; 87633; 90999; 93005; 94640; 97162; 97530; 99285; J0456; J0696; J1644; J2405; J2919; J3480

== ENCOUNTER → 2024-04-05 10:51 | Outpatient (BNV) | payer MEDICARE, MEDICAID, SELFPAY | PROVIDERS: Admitting Provider Student in an Organized Health Care Education/Training Program; Emergency Provider Emergency Medicine; Visit Provider Internal Medicine Cardiovascular Disease | DX: R07.9 Chest pain, unspecified (principal); R06.02 Shortness of breath; R94.31 Abnormal electrocardiogram [ECG] [EKG] | CPT/HCPCS: 93010 ==

== ENCOUNTER → 2024-04-05 17:48 | Outpatient (BNV) | payer MEDICARE, MEDICAID, SELFPAY | PROVIDERS: Admitting Provider Student in an Organized Health Care Education/Training Program; Emergency Provider Emergency Medicine; Visit Provider Student in an Organized Health Care Education/Training Program | DX: E87.6 Hypokalemia (principal); N18.6 End stage renal disease; Z99.2 Dependence on renal dialysis; J40 Bronchitis, not specified as acute or chronic; J18.9 Pneumonia, unspecified organism; J96.01 Acute respiratory failure with hypoxia | CPT/HCPCS: 99223; 99232; 99239 ==

== ENCOUNTER 2024-09-26 11:36 | Emergency (ER) | payer MEDICARE, MEDICAID, SELFPAY ==
--- NOTE | ~2024-09-26 | CT_ITS ---
EXAM: CT HEAD WITHOUT CONTRAST CT CERVICAL SPINE INDICATION: fall, head strike, pain TECHNIQUE: A noncontrast CT scan was performed from the skull base to the vertex. A noncontrast CT scan of the cervical spine was performed from the base of the skull through T1 at 2.5 mm and 0.625 mm collimation. Coronal and sagittal reformats were obtained at the acquisition workstation. This CT examination was performed using dose optimization techniques as appropriate, variously including the following: * Automated exposure control * Adjustment of mA and/or kV according to patient size (this includes techniques or standardized protocols for targeted exams where dose is matched to indication/reason for exam; i.e. extremities or head) * Use of iterative reconstruction technique Dose length product is 2798 mGy-cm. COMPARISON: None FINDINGS: Head: There is no evidence of acute intracranial hemorrhage or edematous large vessel territorial infarction. No abnormal mass effect or midline shift is seen. Chaves to white matter differentiation is well preserved. No abnormal extra-axial fluid collections are identified. Commensurate prominence of the ventricles and sulci is compatible with generalized parenchymal volume loss. There is patchy periventricular and subcortical white matter hypoattenuation, most likely representing microangiopathic disease . There is soft tissue swelling and scalp hematoma in the right posterior skull. No acute fracture in the underlying calvarium. No acute calvarial fracture is otherwise seen... Paranasal sinuses and mastoid air cells are well-aerated. Cervical Spine: The atlantooccipital and atlantoaxial articulations remain well aligned. Straightening of the normal cervical lordosis. No evidence of acute fracture or acute subluxation.. Vertebral body heights are maintained.. Mild C5-6 disc degeneration. Multilevel facet degeneration. The central bony canal is maintained.. No prevertebral soft tissue swelling. The paraspinal soft tissues are unremarkable. Biapical pleural parenchymal scarring. CT/CT head/brain wo IV con IMPRESSION: No CT evidence of acute intracranial hemorrhage or edematous territorial infarction. Soft tissue swelling and scalp hematoma in the right posterior skull. No underlying calvarial fracture seen. No CT evidence of acute cervical spine fracture or malalignment. Additional findings and details as above. Electronically signed by: Sy Salazar MD 09/26/2024 02:19 PM [facility]
--- NOTE | ~2024-09-26 | CT_ITS ---
EXAM: CT HEAD WITHOUT CONTRAST CT CERVICAL SPINE INDICATION: fall, head strike, pain TECHNIQUE: A noncontrast CT scan was performed from the skull base to the vertex. A noncontrast CT scan of the cervical spine was performed from the base of the skull through T1 at 2.5 mm and 0.625 mm collimation. Coronal and sagittal reformats were obtained at the acquisition workstation. This CT examination was performed using dose optimization techniques as appropriate, variously including the following: * Automated exposure control * Adjustment of mA and/or kV according to patient size (this includes techniques or standardized protocols for targeted exams where dose is matched to indication/reason for exam; i.e. extremities or head) * Use of iterative reconstruction technique Dose length product is 2798 mGy-cm. COMPARISON: None FINDINGS: Head: There is no evidence of acute intracranial hemorrhage or edematous large vessel territorial infarction. No abnormal mass effect or midline shift is seen. Chaves to white matter differentiation is well preserved. No abnormal extra-axial fluid collections are identified. Commensurate prominence of the ventricles and sulci is compatible with generalized parenchymal volume loss. There is patchy periventricular and subcortical white matter hypoattenuation, most likely representing microangiopathic disease . There is soft tissue swelling and scalp hematoma in the right posterior skull. No acute fracture in the underlying calvarium. No acute calvarial fracture is otherwise seen... Paranasal sinuses and mastoid air cells are well-aerated. Cervical Spine: The atlantooccipital and atlantoaxial articulations remain well aligned. Straightening of the normal cervical lordosis. No evidence of acute fracture or acute subluxation.. Vertebral body heights are maintained.. Mild C5-6 disc degeneration. Multilevel facet degeneration. The central bony canal is maintained.. No prevertebral soft tissue swelling. The paraspinal soft tissues are unremarkable. Biapical pleural parenchymal scarring. CT/CT cervical spine wo IV con IMPRESSION: No CT evidence of acute intracranial hemorrhage or edematous territorial infarction. Soft tissue swelling and scalp hematoma in the right posterior skull. No underlying calvarial fracture seen. No CT evidence of acute cervical spine fracture or malalignment. Additional findings and details as above. Electronically signed by: Sy Salazar MD 09/26/2024 02:19 PM [facility]
--- NOTE | ~2024-09-26 | XR_ITS ---
EXAMINATION: XR ELBOW, RIGHT CLINICAL INFORMATION: pain, injury COMPARISON: None available. TECHNIQUE: AP, lateral, and oblique views of the right elbow. FINDINGS: No acute cortical disruption or malalignment. No lytic or blastic lesions. No joint effusion. No metallic or radiopaque foreign body. No subcutaneous emphysema. XR/XR elbow RT min 3V IMPRESSION: No acute fracture or dislocation. Electronically signed by: Nick Cedeño MD 09/26/2024 02:06 PM [facility]
--- NOTE | ~2024-09-26 | CT_ITS ---
EXAMINATION: CT CHEST WITHOUT CONTRAST CLINICAL INFORMATION: Status post fall. Right-sided pain. COMPARISON: CT images chest dated February 05, 2019. TECHNIQUE: Multidetector volumetric CT imaging of the chest was done. Axial MIP volume rendering provided. Sagittal and coronal reformatted images were obtained. This CT examination was performed using dose optimization techniques as appropriate, variously including the following: *Automated exposure control *Adjustment of mA and/or kV according to patient size (this includes techniques or standardized protocols for targeted exams where dose is matched to indication/reason for exam; i.e. extremities or head) *Use of iterative reconstruction technique DLP: 1022.9 mGy-cm FINDINGS: No lung contusion. No pneumothorax. No hemothorax. No hemomediastinum. No pneumomediastinum. No hemopericardium. Ribs are intact. Sternum is intact. Scapula and clavicles are intact. Calcified plaques in the thoracic aorta, its main branches and the coronary arteries. No aneurysm of the thoracic aorta. No acute fracture or listhesis in the axial skeleton. Multilevel spondylosis. No acute airspace disease. Subtle pulmonary mosaic pattern. Bilateral apical lung scarring. Nonspecific subcentimeter 2 mm nodules in the periphery of the lungs. CT/CT chest wo IV con IMPRESSION: No acute intrathoracic trauma related injury or acute fracture. Fleischner guidelines were followed. Electronically signed by: Nick Cedeño MD 09/26/2024 02:53 PM [facility]
--- NOTE | ~2024-09-26 | CT_ITS ---
EXAMINATION: CT LUMBAR SPINE WITHOUT CONTRAST CLINICAL INFORMATION: Status post fall. Pain. COMPARISON: None available. TECHNIQUE: Contiguous axial images through the lumbar spine using 2 mm collimation with bone and soft tissue algorithm. Sagittal and coronal reformatted images acquired. This CT examination was performed using dose optimization techniques as appropriate, variously including the following: *Automated exposure control *Adjustment of mA and/or kV according to patient size (this includes techniques or standardized protocols for targeted exams where dose is matched to indication/reason for exam; i.e. extremities or head) *Use of iterative reconstruction technique DLP; 1022.9 mGy-cm FINDINGS: Limited by patient's motion artifact. Last rib-bearing vertebra labeled T12. Osteopenia versus osteoporosis. Marginal osteophyte formation and decreased intervertebral disc height at L5-S1. Grade 1 anterolisthesis L4-5 on a degenerative basis. Facet joint hypertrophy at L3-4, L4-5 and L5-S1 levels. Sclerosis and vacuum phenomenon both sacroiliac joints. Dextroconvex curvature apex at L2-3. No acute cortical disruption. Fatty atrophy of the lower lumbar muscles from L4-5 to sacrum. Calcified plaques abdominal aorta wall and its main branches and the main renal arteries and the iliac arteries. No aneurysm, abdominal aorta. The kidneys are small with renal cortical thinning. No hydronephrosis. Probable nonobstructing calculus in the left kidney. Cystic lesions both kidneys. Status post cholecystectomy likely laparoscopic. CT/CT lumbar spine wo IV con IMPRESSION: Multilevel spondylosis resulting in grade 1 anterolisthesis L4-5 without acute fracture. Nonobstructing nephrolithiasis left kidney. Medical renal disease without hydronephrosis. Atherosclerosis disease. Cystic lesions both kidneys. Electronically signed by: Nick Cedeño MD 09/26/2024 02:23 PM EST
--- NOTE | ~2024-09-26 | XR_ITS ---
EXAMINATION: XR HUMERUS, LEFT CLINICAL INFORMATION: pain, injury COMPARISON: None available. TECHNIQUE: AP and lateral views of the left humerus. FINDINGS: The bones and soft tissues are normal. No fracture. Imaged portions of the shoulder and elbow are unremarkable. XR/XR humerus LT IMPRESSION: Normal left humerus. Electronically signed by: Lavell Dozier MD 09/26/2024 04:11 PM [facility]
[2024-09-26 11:49] VITALS: BP 144/82; BP 180/65; PULSE 81; PULSE 88; RESP 18; TEMP 36.8; O2SAT 98; BMI 39.6
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
--- NOTE | 2024-09-26 12:32 | PC.NURSE ---
pt to CT scan
[2024-09-26] MEDS: oxyCODONE HCl Immed Release 5 MG TABLET 10 MG PO (15:14)
[2024-09-26 16:09] VITALS: BP 157/72; PULSE 83; RESP 16; TEMP 36.9; O2SAT 94
[2024-09-26 17:01] LABS: MANUAL DIFF FLAG NO
[2024-09-26 17:04] LABS: Hematocrit 32.5 % (37.0-47.0); Hemoglobin 11.2 g/dl (12.0-16.0); Imm Gran Abs Auto 0.04 X10*3/uL (0.00-0.03); Imm Gran Pct Auto 0.6 % (0.0-0.4); Lymphocytes Absolute Auto 1.8 X10*3/uL (1.2-4.9); Lymphocytes Percent Auto 24.8 % (20-40); Mean Corpuscular HGB Conc 34.5 g/dl (31.0-35.0); Mean Corpuscular Hemoglobin 31.1 pg (27.0-33.0); Mean Corpuscular Volume 90.3 fL (80.0-98.0); Mean Platelet Volume 8.6 fL (9.4-12.3); Monocytes Absolute Auto 0.8 X10*3/uL (0.1-1.2); Monocytes Percent Auto 10.6 % (2-11); Neutrophils Absolute Auto 4.5 x10*3/uL (2.0-8.3); Platelet Count 259 X10*3/uL (160-400); Red Cell Distribution Width 14.1 % (11.0-16.0); White Blood Count 7.1 X10*3/uL (4.8-10.8)
[2024-09-26 17:33] LABS: Alanine Aminotransferase 28 U/L (0-31); Albumin Level 4.1 g/dL (3.5-5.0); Alkaline Phosphatase 113 U/L (39-117); Anion Gap 17 (12-20); Aspartate Amino Transferase 50 U/L (5-31); Bilirubin Total 0.4 mg/dL (0.0-1.0); Blood Urea Nitrogen 72 mg/dL (9-16); Calcium 9.6 mg/dL (8.4-10.2); Carbon Dioxide 27 mmol/L (22-29); Chloride 93 mmol/L (96-108); Creatinine Clr Calc Pharmacy 8.9; Estimated Glomerular Filt Rate 6; Glucose Random 104 mg/dL (60-115); Potassium 3.9 mmol/L (3.3-5.1); Sodium 133 mmol/L (135-145); Total Protein 7.4 g/dL (6.5-8.0)
[2024-09-26 18:16] VITALS: BP 142/90; PULSE 68; RESP 16; TEMP 36.2; O2SAT 94
[2024-09-26 18:20] VITALS: BP 142/90; PULSE 68; RESP 16; TEMP 36.2; O2SAT 94
== END 2024-09-26 18:20 | disposition home or self-care (01) ==
PROVIDERS: Emergency Provider Emergency Medicine Emergency Medical Services
DX: R51.9 Headache, unspecified (principal); M25.521 Pain in right elbow; M79.622 Pain in left upper arm; M54.2 Cervicalgia; M54.9 Dorsalgia, unspecified; T14.90XA Injury, unspecified, initial encounter; V49.9XXA Car occupant (driver) (passenger) injured in unspecified traffic accident, initial encounter; Y93.89 Activity, other specified; Y92.89 Other specified places as the place of occurrence of the external cause; Y99.9 Unspecified external cause status; N18.6 End stage renal disease; Z99.2 Dependence on renal dialysis
CPT/HCPCS: 36415; 70450; 71250; 72125; 72131; 73060; 73080; 80053; 85025; 99284

== ENCOUNTER → 2024-09-26 12:05 | Outpatient (BNV) | payer MEDICARE, MEDICAID, SELFPAY | PROVIDERS: Emergency Provider Emergency Medicine Emergency Medical Services; Visit Provider Radiology Diagnostic Radiology | DX: M47.814 Spondylosis without myelopathy or radiculopathy, thoracic region (principal); M43.16 Spondylolisthesis, lumbar region; N20.0 Calculus of kidney; N28.1 Cyst of kidney, acquired; M25.522 Pain in left elbow | CPT/HCPCS: 71250; 72131; 73080 ==

== ENCOUNTER 2024-10-13 09:46 | Inpatient (IN) | payer MEDICARE, MEDICAID, SELFPAY ==
--- NOTE | ~2024-10-13 | XR_ITS ---
EXAMINATION: XR CHEST CLINICAL INFORMATION: weakness COMPARISON: X-ray dated April 07, 2024. TECHNIQUE: 2 views of the chest were obtained. FINDINGS: Pulmonary reticular pattern. No consolidation, pleural effusion or pneumothorax. Calcified plaque thoracic aorta. Cardiac mediastinal silhouette size is normal. Osteopenia versus osteoporosis. XR/XR chest 2V IMPRESSION: Chronic interstitial lung disease. Electronically signed by: Nick Cedeño MD 10/13/2024 03:54 PM EST
--- NOTE | ~2024-10-13 | CT_ITS ---
Examination: CT brain and CT cervical spine without contrast. CLINICAL INDICATION: Head strike. Pain. COMPARISON: CT brain and cervical spine 09/26/2024 TECHNIQUE: 5 mm thin axial and reformatted 2 mm thin sagittal and coronal images of brain were obtained without contrast. Subsequently axial 3 mm thin and reformatted 2 mm thin sagittal and coronal images of cervical spine were obtained. DLP [id number].This CT examination was performed using dose optimization techniques as appropriate, variously including the following: - Automated exposure control - Adjustment of mA and/or kV according to patient size (this includes techniques or standardized protocols for targeted exams where dose is matched to indication/reason for exam; i.e. extremities or head) - Use of iterative reconstruction technique. FINDINGS: Brain: There is no acute intra-axial, extra-axial bleed, masses or midline shift. There is no acute infarction in evolution. The lateral ventricles are symmetrical in size and configuration without enlargement. Chaves to white matter differentiation is maintained normal. There is right occipital scalp contusion without calvarial fracture. Bilateral paranasal sinuses and mastoid air cells are well-aerated. Cervical spine: There is mild reversal of cervical lordosis. The vertebral heights and alignment is normal. There is loss of C5-6 disc height with ventral and posterior spondylosis. Rest of the disc heights are normal. The cervical vasculature junction and the C1-C2 alignment is normal. There is no visible acute fracture, dislocation of subluxation. The prevertebral and paravertebral soft tissues are normal. There is medial tension of internal carotid artery and the prevertebral soft tissues/retropharyngeal space. The tracheal airway is widely patent. There is minimal right apical parenchymal scarring. CT/CT cervical spine wo IV con IMPRESSION: No acute intracranial process seen. Right apical scalp contusion without calvarial fracture. There is no acute fracture, dislocation or subluxation cervical spine. There is reversal of cervical lordosis from spasm. Mild degenerative disc changes C5-6 disc level with ventral and posterior spondylosis Electronically signed by: Gilmer Pena MD 10/13/2024 02:33 PM EST
--- NOTE | ~2024-10-13 | XR_ITS ---
CLINICAL HISTORY: fall, pain 3 view left foot Comparison: None Findings: Bony alignment at the Lisfranc articulation is anatomic. Bones are osteopenic. No acute fractures. Mild scattered degenerative changes. Small plantar calcaneal spur. No bony destructive change. IMPRESSION: 1. No acute findings. This document has been electronically signed by: Rory Sears MD on 10/13/2024 18:48:09
[2024-10-13 09:54] VITALS: BP 105/68; BP 140/86; PULSE 62; PULSE 72; RESP 20; TEMP 36.6; O2SAT 92; O2SAT 98; BMI 40.6
--- NOTE | 2024-10-13 09:57 | ED_ITS ---
HPI - Fall General Chief Complaint: Fall Stated Complaint: FALL,HIT HEAD,-LOC,WEAK/ACHY PER EMS Time Seen by Provider: 10/13/24 09:56 Source: patient and RN notes reviewed Mode of arrival: EMS Limitations: no limitations History of Present Illness ED Provider: Elissa Hancock PA-C HPI Narrative: This is a 78-year-old female, with a history of end-stage renal disease on dialysis, who presents emergency department via EMS with concerns for head injury status post fall which occurred today. Patient reports that while she was at home, she felt as though her knees gave out, and she fell, striking her left posterior head. Denies LOC. She is not on anticoagulation. She was supposed to have dialysis this morning however due to the fall, she was unable to go. She states that she has had no headache, dizziness, chest pain, shortness of breath, abdominal pain, nausea, vomiting or diarrhea. Patient reports that she has had shakiness over the last several days, and reports that she has had more global weakness. She reports that she lives at home alone, does not feel safe due to her ?shakiness . No recent illness. No chest pain, SOB, headache, abdominal pain, nausea, vomiting, diarrhea or urinary symptoms. No other complaints or concerrns ilda this time. MD complaint: fall Fall from: standing Fall witnessed: no Place fall occurred: home Loss of consciousness: none Prolonged down time: no Symptoms prior to fall: none Location of injury: head Associated symptoms (after fall): denies Related Data Home Medications ?Medication ?Instructions ?Recorded ?Confirmed furosemide 80 mg tablet 240 mg PO SUTUTHSA@0900 04/05/24 10/13/24 gabapentin 100 mg capsule 100 mg PO BID 04/05/24 10/13/24 metolazone 10 mg tablet 5 mg PO SUTUTHSA 04/05/24 10/13/24 sevelamer carbonate 800 mg tablet 2,400 mg PO TIDWM 04/05/24 10/13/24 (Renvela) sevelamer carbonate 800 mg tablet 800 mg PO DAILY PRN snack 04/05/24 10/13/24 (Renvela) amitriptyline 25 mg tablet 25 mg PO BEDTIME 10/13/24 10/13/24 dextromethorphan-guaifenesin 10 10 ml PO Q4H PRN Cough 10/13/24 10/13/24 mg-100 mg/5 mL oral liquid metoprolol tartrate 25 mg tablet 12.5 mg PO BID 10/13/24 10/13/24 Previous Rx's ?Medication ?Instructions ?Recorded albuterol sulfate 90 mcg/actuation 2 puff inhalation Q6H PRN 04/08/24 aerosol inhaler shortness of breath or wheezing #6.7 grams Allergies Allergy/AdvReac Type Severity Reaction Status Date / Time morphine [MORPHINE] Allergy Intermediate FAINTED Verified 10/13/24 09:58 Review of Systems 2 Review of Systems: Yes all other systems are reviewed and are negative Constitutional: Constitutional: Reports as per [facility] Past Medical History Medical History ESRD (end stage renal disease) on dialysis Anemia ESRD (end stage renal disease) Social History Social History Household Members: None Housing: Apartment Do you presently have visiting nurse or other home services: Yes (3 TIMES A WEEK) Patient Tobacco Use Status: Former Tobacco user service: No Physical Exam 2 Vital Signs: Vital Signs: Last Vital Signs Temp 98.9 F 10/14/24 09:07 Pulse 75 10/14/24 09:07 Resp 18 10/14/24 09:07 BP 125/70 10/14/24 09:07 Pulse Ox 97 10/14/24 09:07 O2 Del Method Room Air 10/14/24 09:07 BMI result Body Mass Index 40.6 Const: General: cooperative, comfortable and no acute distress O rientation/consciousness: patient oriented x3 Limitations: no limitations HEENT: Other: No hematoma noted to posterior scalp, no open wounds or lacerations. Head: Yes normal to inspection, Yes normocephalic and Yes atraumatic E ars: hearing grossly normal bilaterally and TM's normal bilaterally General nose exam: Normal external nose present Face and sinus: Yes normal facial exam Mouth: Normal oral and palatal mucosa present, oropharynx normal and moist mucous membranes Throat: Yes posterior oropharynx normal Eyes: General: appearance normal, both eyes and all related structures E yelids: Yes eyelids normal Conjunctivae: conjunctivae normal Sclerae: s clerae normal Pupils: Equal, round and reactive pupils present EOM: EOMs intact bilaterally Neck: Neck: Yes normal visual inspection, Yes full ROM and Yes no lymphadenopathy Lymphatic: no lymphadenopathy noted Chest: Chest palpation & inspection: normal inspection of the chest Resp: Effort & Inspection: normal respiratory effort and able to speak in complete sentences Auscultation: clear to auscultation bilaterally, no crackles, no rales, no rhonchi and no wheezes Cardio: Rate: regular rate Rhythm: regular rhythm Heart sounds: S1 normal heart sound present and S2 normal heart sound present GI: Inspection: Yes normal to inspection Skin: General skin exam: no rashes or lesions noted Trauma: no lacerations or abrasions Wounds: no wounds Neuro: General: patient oriented x3 and moves all extremities Cranial nerves: Yes Equal, round and reactive pupils present Extrem: General: Yes normal to inspection Right upper extremity: normal to inspection Left upper extremity: normal to inspection Right lower extremity: normal to inspection Left lower extremity: normal to inspection Course Reevaluation(s) Reevaluation #1: CT head and neck unremarkable. Cervical collar was removed. Patient with a critical creatinine of 6.15, with a BUN of 75, this appears to be at her baseline. She is due for hemodialysis today. She has a [facility] patient. Currently being followed by Dr. Barnes. Patient reports that over the last several days she has felt shaky, states that her knees buckle underneath her. Denies any new urinary symptoms. Will obtain viral swabs, chest x-ray, orthostatics, repeat troponin. Time: 14:52 Reevaluation #2: Spoke to Dr. Brown, he recommends dialysis in the morning, no need for emergent dialysis tonight. Will admit to the medical service due to weakness, and need for dialysis. Patient agreeable for admission. Discussed with hospitalist, transfer of care initiated. Time: 16:41 Medications Administered Generic Name Dose Route Start Last Admin Trade Name Freq PRN Reason Stop Dose Admin Acetaminophen 975 mg 10/14/24 05:48 10/14/24 05:54 Acetaminophen 325 Mg Tablet PO 975 mg Q6H PRN Administration Pain, Mild 1-3,fever,headache Amitriptyline HCl 25 mg 10/13/24 21:00 10/13/24 21:51 Amitriptyline Hcl 25 Mg Tablet PO Not Given BEDTIME ASTRID Diphenhydramine HCl 25 mg 10/14/24 09:20 10/14/24 09:33 Diphenhydramine Hcl 25 Mg Capsule PO 25 mg Q6H PRN Administration pruritis Gabapentin 100 mg 10/14/24 09:00 10/14/24 09:16 Gabapentin 100 Mg Capsule PO 100 mg BID ASTRID Administration Heparin Sodium (Porcine) 5,000 unit 10/13/24 18:00 10/14/24 08:57 Heparin Sodium,Porcine 5,000 Unit/Ml Vial SUBCUT 5,000 unit Q8H ASTRID Administration Metoprolol Tartrate 12.5 mg 10/14/24 09:00 10/14/24 08:54 Metoprolol Tartrate 12.5 Mg Halftab PO 12.5 mg BID ASTRID Administration Protocol Sodium Chloride 3 ml 10/14/24 00:00 10/14/24 08:55 0.9 % Sodium Chloride Flush 3 Ml Syringe IVFLUSH 3 ml QSHIFT ASTRID Administration Discontinued Medications Generic Name Dose Route Start Last Admin Trade Name Freq PRN Reason Stop Dose Admin Amitriptyline HCl 25 mg 10/13/24 21:00 10/13/24 21:41 Amitriptyline Hcl 25 Mg Tablet PO 25 mg BEDTIME ASTRID Administration Gabapentin 100 mg 10/13/24 21:00 10/13/24 21:41 Gabapentin 100 Mg Capsule PO 100 mg TID ASTRID Administration Gabapentin 100 mg 10/13/24 21:00 10/13/24 21:51 Gabapentin 100 Mg Capsule PO Not Given TID ASTRID Sodium Chloride 500 mls @ 500 mls/hr 10/13/24 17:15 10/13/24 18:47 Ns IV 10/13/24 18:14 Infused .Q1H ONE Infusion Sodium Chloride 500 mls @ 500 mls/hr 10/13/24 20:30 10/14/24 01:09 Ns IV 10/13/24 21:29 Infused .Q1H STA Infusion Metoprolol Tartrate 25 mg 10/13/24 21:00 10/13/24 21:21 Metoprolol Tartrate 25 Mg Tablet PO 25 mg BID ASTRID Administration Protocol Metoprolol Tartrate 25 mg 10/13/24 21:00 10/13/24 21:52 Metoprolol Tartrate 25 Mg Tablet PO Not Given BID ASTRID Protocol Medical Decision Making Medical Decision Making MDM Narrative: This is a 78-year-old female, with a history of end-stage renal disease on dialysis (M/W/F), who presents emergency department with concerns for head injury status post fall which occurred today. On arrival, patient alert and oriented x4, she is neurologically intact, with no focal deficits. Patient arrives via EMS in cervical collar. CT head and neck were ordered. Will obtain labs, EKG, troponin x2 due to ?shakiness . She goes to [facility]. Currently being followed by Dr. Barnes. Differential Diagnosis Differential Diagnoses: The differential diagnosis associated with the presentation includes ICH, SDH, cervical spine fracture, weakness, end-stage renal disease Admission/Observation Consideration of admission/observation: Escalation of care including admission/observation considered Consult Healthcare Provider Management of the patient was discussed with: Preschool Teacher Assistant Dr. Brown, commercial credit reviewer. Lab Data MDM Lab Attestation statement: I reviewed the patient's lab results. Patient with no leukocytosis, H&H revealing a normocytic anemia with an H&H of 10.5/31.1, chemistry revealing hyponatremic at 1:31 a.m., chloride 88, carbon dioxide 31, BUN 75, creatinine 6.1, similar to previous, magnesium elevated at 3.0. Troponin with negative delta change 10/14/24 04:35 10/14/24 04:35 Labs: Lab Results 10/13/24 10/13/24 10/13/24 Range/Units 10:42 10:43 13:45 WBC 5.0 (4.8-10.8) X10*3/uL RBC 3.38 L (4.20-5.50) X10*6/uL Hgb 10.5 L (12.0-16.0) g/dl Hct 31.1 L (37.0-47.0) % MCV 92.0 (80.0-98.0) fL MCH 31.1 (27.0-33.0) pg MCHC 33.8 (31.0-35.0) g/dl RDW 13.8 (11.0-16.0) % Plt Count 310 (160-400) X10*3/uL MPV 8.4 L (9.4-12.3) fL Immature Gran % (Auto) 0.6 H (0.0-0.4) % Neut % (Auto) 60.3 (45-73) % Lymph % (Auto) 25.8 (20-40) % [place] % (Auto) 13.1 H (2-11) % Eos % (Auto) 0.0 (0-4) % Baso % (Auto) 0.2 (0-2) % Lymph # (Auto) 1.3 (1.2-4.9) X10*3/uL [place] # (Auto) 0.7 (0.1-1.2) X10*3/uL Eos # (Auto) 0.0 (0.0-0.4) X10*3/uL Baso # (Auto) 0.0 (0.0-0.2) X10*3/uL Abs Immat Gran (auto) 0.03 (0.00-0.03) X10*3/uL Absolute Neuts (auto) 3.0 (2.0-8.3) x10*3/uL Absolute Nucleated RBC 0.000 (0.0-0.012) X10*3/uL Nucleated RBC % (auto) 0.0 (0.0-0.2) /100WBC Sodium 131 L (135-145) mmol/L Potassium 3.8 (3.3-5.1) mmol/L Chloride 88 L (96-108) mmol/L Carbon Dioxide 31 H (22-29) mmol/L Anion Gap 16 (12-20) BUN 75 H (9-16) mg/dL Creatinine 6.15 H* (0.5-1.4) mg/dL Estim Creat Clear Calc 9.4 Estimated GFR 7 Random Glucose 92 (60-115) mg/dL Calcium 9.1 (8.4-10.2) mg/dL Magnesium 3.0 H (1.6-2.6) mg/dL Total Bilirubin 0.5 (0.0-1.0) mg/dL Direct Bilirubin 0.1 (0.0-0.5) mg/dL AST 23 (5-31) U/L ALT 13 (0-31) U/L Alkaline Phosphatase 112 (39-117) U/L Troponin I High Sens 6.3 D 7.1 (<3.5-17.0) ng/L Total Protein 7.0 (6.5-8.0) g/dL Albumin 3.9 (3.5-5.0) g/dL Influenza Type A (PCR) (Negative) Influenza Type B (PCR) (Negative) RSV RNA Qual (PCR) (Negative) SARS-CoV-2 RNA (RT-PCR) (Negative) 10/13/24 Range/Units 15:15 WBC (4.8-10.8) X10*3/uL RBC (4.20-5.50) X10*6/uL Hgb (12.0-16.0) g/dl Hct (37.0-47.0) % MCV (80.0-98.0) fL MCH (27.0-33.0) pg MCHC (31.0-35.0) g/dl RDW (11.0-16.0) % Plt Count (160-400) X10*3/uL MPV (9.4-12.3) fL Immature Gran % (Auto) (0.0-0.4) % Neut % (Auto) (45-73) % Lymph % (Auto) (20-40) % [place] % (Auto) (2-11) % Eos % (Auto) (0-4) % Baso % (Auto) (0-2) % Lymph # (Auto) (1.2-4.9) X10*3/uL [place] # (Auto) (0.1-1.2) X10*3/uL Eos # (Auto) (0.0-0.4) X10*3/uL Baso # (Auto) (0.0-0.2) X10*3/uL Abs Immat Gran (auto) (0.00-0.03) X10*3/uL Absolute Neuts (auto) (2.0-8.3) x10*3/uL Absolute Nucleated RBC (0.0-0.012) X10*3/uL Nucleated RBC % (auto) (0.0-0.2) /100WBC Sodium (135-145) mmol/L Potassium (3.3-5.1) mmol/L Chloride (96-108) mmol/L Carbon Dioxide (22-29) mmol/L Anion Gap (12-20) BUN (9-16) mg/dL Creatinine (0.5-1.4) mg/dL Estim Creat Clear Calc Estimated GFR Random Glucose (60-115) mg/dL Calcium (8.4-10.2) mg/dL Magnesium (1.6-2.6) mg/dL Total Bilirubin (0.0-1.0) mg/dL Direct Bilirubin (0.0-0.5) mg/dL AST (5-31) U/L ALT (0-31) U/L Alkaline Phosphatase (39-117) U/L Troponin I High Sens (<3.5-17.0) ng/L Total Protein (6.5-8.0) g/dL Albumin (3.5-5.0) g/dL Influenza Type A (PCR) NEGATIVE (Negative) Influenza Type B (PCR) NEGATIVE (Negative) RSV RNA Qual (PCR) NEGATIVE (Negative) SARS-CoV-2 RNA (RT-PCR) NEGATIVE (Negative) Independent Interpretation I performed an independent interpretation of an: EKG Interpretation: nsr 70bpm, no st elevation, QT/QTC 412/444 Radiology Impression Discussion of test interpretation with radiology: I have reviewed the radiologist's reading. Radiologist Impression: [place] [id number] XRay Report Signed Patient: Simran Yip MR#: [id number] : 1945 Acct:[id number] Age/Sex: 78 / F ADM Date: 10/13/24 Loc: .ED Attending Dr: Ordering Physician: Elissa Hancock Date of Service: 10/13/24 Procedure(s): XR chest 2V Accession Number(s): [id number] cc: Elissa Hancock; Physician,Unknown ~ EXAMINATION: XR CHEST CLINICAL INFORMATION: weakness COMPARISON: X-ray dated April 07, 2024. TECHNIQUE: 2 views of the chest were obtained. FINDINGS: Pulmonary reticular pattern. No consolidation, pleural effusion or pneumothorax. Calcified plaque thoracic aorta. Cardiac mediastinal silhouette size is normal. Osteopenia versus osteoporosis. XR/XR chest 2V IMPRESSION: Chronic interstitial lung disease. Electronically signed by: Nick Cedeño MD 10/13/2024 03:54 PM [facility] By: Nick Rogers MD External Record Review External record reviewed: Inpatient record, Office record, Outpatient record, Prior outpatient labs, Prior outpatient radiology, Primary care record and Outside ED record Discharge Plan Discharge Clinical Impression: Weakness, ESRD (end stage renal disease) on dialysis Patient Disposition: Admitted As Inpatient Interventions: Admission Worksheet (ED) Last Done: 10/14/24 07:01 Discharge Date/Time: 10/14/24 08:31
[2024-10-13 10:00] VITALS: O2SAT 97
--- NOTE | 2024-10-13 10:04 | ECG_ITS ---
Test Reason : FALL Blood Pressure : / mmHG Vent. Rate : 070 BPM Atrial Rate : 070 BPM P-R Int : 168 ms QRS Dur : 092 ms QT Int : 412 ms P-R-T Axes : 044 045 040 degrees QTc Int : 444 ms Artifact in tracing Normal sinus rhythm Low voltage QRS Borderline ECG When compared with ECG of 05-APR-2024 10:51, No significant change was found Referred By: Elissa Hancock Electronically Signed By:DEEP SANDOVAL
[2024-10-13 10:50] LABS: MANUAL DIFF FLAG NO
[2024-10-13 10:52] LABS: Basophils Percent Auto 0.2 % (0-2); Hematocrit 31.1 % (37.0-47.0); Hemoglobin 10.5 g/dl (12.0-16.0); Imm Gran Abs Auto 0.03 X10*3/uL (0.00-0.03); Imm Gran Pct Auto 0.6 % (0.0-0.4); Lymphocytes Absolute Auto 1.3 X10*3/uL (1.2-4.9); Lymphocytes Percent Auto 25.8 % (20-40); Mean Corpuscular HGB Conc 33.8 g/dl (31.0-35.0); Mean Corpuscular Hemoglobin 31.1 pg (27.0-33.0); Mean Platelet Volume 8.4 fL (9.4-12.3); Monocytes Absolute Auto 0.7 X10*3/uL (0.1-1.2); Monocytes Percent Auto 13.1 % (2-11); Neutrophils Percent Auto 60.3 % (45-73); Platelet Count 310 X10*3/uL (160-400); Red Blood Count 3.38 X10*6/uL (4.20-5.50); Red Cell Distribution Width 13.8 % (11.0-16.0)
[2024-10-13 11:14] LABS: Alanine Aminotransferase 13 U/L (0-31); Albumin Level 3.9 g/dL (3.5-5.0); Alkaline Phosphatase 112 U/L (39-117); Anion Gap 16 (12-20); Aspartate Amino Transferase 23 U/L (5-31); Bilirubin Direct 0.1 mg/dL (0.0-0.5); Bilirubin Total 0.5 mg/dL (0.0-1.0); Blood Urea Nitrogen 75 mg/dL (9-16); Calcium 9.1 mg/dL (8.4-10.2); Carbon Dioxide 31 mmol/L (22-29); Chloride 88 mmol/L (96-108); Glucose Random 92 mg/dL (60-115); Potassium 3.8 mmol/L (3.3-5.1); Sodium 131 mmol/L (135-145)
[2024-10-13 11:16] LABS: Creatinine Clr Calc Pharmacy 9.4; Estimated Glomerular Filt Rate 7
[2024-10-13 11:21] LABS: Troponin-I High Sensitivity 6.3 ng/L (<3.5-17.0)
--- NOTE | 2024-10-13 14:13 | PC.NURSE ---
No CT read back at this time- this nurse spoke with CT scan as pt was scanned around 1115. Per radiology , study was not marked as taken once completed. Per CT scan, MD Pena contacted for expeditied read. In addition GAYLE Hancock contacted MD Pena regarding read. pt remains in c-collar at this time- repeat troponin pending
[2024-10-13 14:23] LABS: Troponin-I High Sensitivity 7.1 ng/L (<3.5-17.0)
--- NOTE | 2024-10-13 14:44 | PC.NURSE ---
CT read obtained, C-collar removed per GAYLE Hancock
[2024-10-13 15:27] VITALS: BP 89/41; BP 90/32; BP 98/32; PULSE 83; PULSE 90; PULSE 97
[2024-10-13 15:59] LABS: Influenza A PCR NEGATIVE (Negative); Influenza B PCR NEGATIVE (Negative); Resp Syncy Virus RNA Qual PCR NEGATIVE (Negative); SARS COV2 PCR INHOUSE NEGATIVE (Negative)
[2024-10-13 17:08] VITALS: BP 135/43; PULSE 80; RESP 20; TEMP 37; O2SAT 95
[2024-10-13] MEDS: 0.9 % Sodium Chloride 500 ML IV ×2 (17:47→21:46)
--- NOTE | 2024-10-13 17:53 | PM.IMHP ---
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 Patient states she has been feeling shaky and weak on day of presentation and was walking walker and fell down. Denies any lightheadedness loss of consciousness. No fever, chills, chest pain, shortness of breath. Denies dysuria or frequency. Denies abdominal pain, nausea, vomiting, diarrhea. In ED trauma workup was negative so far. Though is complaining of lateral left foot pain. 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) Patient Tobacco Use Status: Never used Tobacco Smoked in Last 30 Days: No Use of substances other than those prescribed or required for medical reasons: No Advance Directives: No Advance Directives Information Provided: Yes Do you have a plan to hurt others: No Plan service: No Meds Allergies Allergy/AdvReac Type Severity Reaction Status Date / Time morphine [MORPHINE] Allergy Intermediate FAINTED Verified 10/13/24 09:58 Active Medications: Current Medications Sodium Chloride (Ns) 500 mls @ 500 mls/hr IV .Q1H ONE Stop: 10/13/24 18:14 Last Admin: 10/13/24 17:47 Dose: 500 mls/hr Home Medications ?Medication ?Instructions ?Recorded ?Confirmed ?Last Taken ?Type furosemide 80 mg tablet 240 mg PO SUTUTHSA@0900 04/05/24 04/05/24 10/12/24 History gabapentin 100 mg capsule 200 mg PO BID 04/05/24 04/05/24 10/12/24 History metolazone 10 mg tablet 5 mg PO SUTUTHSA 04/05/24 04/05/24 10/12/24 History sevelamer carbonate 800 mg tablet 2,400 mg PO TIDWM 04/05/24 04/05/24 10/12/24 History (Renvela) sevelamer carbonate 800 mg tablet 800 mg PO DAILY PRN snack 04/05/24 04/05/24 Unknown History (Renvela) amitriptyline 25 mg tablet 25 mg PO BEDTIME 10/13/24 10/12/24 History dextromethorphan-guaifenesin 10 10 ml PO Q4H PRN Cough 10/13/24 Unknown History mg-100 mg/5 mL oral liquid metoprolol tartrate 25 mg tablet 12.5 mg PO BID 10/13/24 10/12/24 History Physical Exam Vital Signs and Narrative: Vital Signs: Last Vital Signs Temp 98.6 F 10/13/24 17:08 Pulse 80 10/13/24 17:08 Resp 20 10/13/24 17:08 BP 135/43 L 10/13/24 17:08 Pulse Ox 95 10/13/24 17:08 O2 Del Method Room Air 10/13/24 17:08 BMI result Body Mass Index 40.6 General: AO X 3, no acute distress Resp: CTA bilateral, no accessory muscles used CVS: S1,S2,RRR GI: soft, non tender, non distended Neuro: motor grossly intact, alert Psych: appropriate affect, appropriate insight Results Labs 10/13/24 10:42 10/13/24 10:43 Labs: Laboratory Results - last 24 hr 10/13/24 10/13/24 10/13/24 10:42 10:43 13:45 MCV 92.0 MCH 31.1 MCHC 33.8 RDW 13.8 Plt Count 310 MPV 8.4 L Immature Gran % (Auto) 0.6 H Neut % (Auto) 60.3 Lymph % (Auto) 25.8 [place] % (Auto) 13.1 H Eos % (Auto) 0.0 Baso % (Auto) 0.2 Lymph # (Auto) 1.3 [place] # (Auto) 0.7 Eos # (Auto) 0.0 Baso # (Auto) 0.0 Abs Immat Gran (auto) 0.03 Absolute Neuts (auto) 3.0 Absolute Nucleated RBC 0.000 Nucleated RBC % (auto) 0.0 Anion Gap 16 Estim Creat Clear Calc 9.4 Estimated GFR 7 Random Glucose 92 Calcium 9.1 Magnesium 3.0 H Total Bilirubin 0.5 Direct Bilirubin 0.1 AST 23 ALT 13 Alkaline Phosphatase 112 Troponin I High Sens 6.3 D 7.1 Total Protein 7.0 Albumin 3.9 Influenza Type A (PCR) Influenza Type B (PCR) RSV RNA Qual (PCR) SARS-CoV-2 RNA (RT-PCR) 10/13/24 15:15 MCV MCH MCHC RDW Plt Count MPV Immature Gran % (Auto) Neut % (Auto) Lymph % (Auto) [place] % (Auto) Eos % (Auto) Baso % (Auto) Lymph # (Auto) [place] # (Auto) Eos # (Auto) Baso # (Auto) Abs Immat Gran (auto) Absolute Neuts (auto) Absolute Nucleated RBC Nucleated RBC % (auto) Anion Gap Estim Creat Clear Calc Estimated GFR Random Glucose Calcium Magnesium Total Bilirubin Direct Bilirubin AST ALT Alkaline Phosphatase Troponin I High Sens Total Protein Albumin Influenza Type A (PCR) NEGATIVE Influenza Type B (PCR) NEGATIVE RSV RNA Qual (PCR) NEGATIVE SARS-CoV-2 RNA (RT-PCR) NEGATIVE Imaging Radiologist's Impressions: Impressions Head CT 10/13/24 10:04 IMPRESSION: No acute intracranial process seen. Right apical scalp contusion without calvarial fracture. There is no acute fracture, dislocation or subluxation cervical spine. There is reversal of cervical lordosis from spasm. Mild degenerative disc changes C5-6 disc level with ventral and posterior spondylosis Electronically signed by: Gilmer Pena MD 10/13/2024 02:33 PM EST RP Cervical Spine CT 10/13/24 11:16 IMPRESSION: No acute intracranial process seen. Right apical scalp contusion without calvarial fracture. There is no acute fracture, dislocation or subluxation cervical spine. There is reversal of cervical lordosis from spasm. Mild degenerative disc changes C5-6 disc level with ventral and posterior spondylosis Electronically signed by: Gilmer Pena MD 10/13/2024 02:33 PM EST RP Chest X-Ray 10/13/24 15:02 IMPRESSION: Chronic interstitial lung disease. 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 End-stage renal disease Nephrology eval, hemodialysis, phosphate binder Fall Possibly due to dehydration, orthostasis Giving 500 cc normal saline PT eval Paroxysmal atrial fibrillation Appears remote, does not appear to be on anticoagulation, continue lopressor DVT prophylaxis-heparin subQ full code Patient presenting with fall and need for hemodialysis therefore expected require at least 2 midnights inpatient Quality Stroke Does the patient have a stroke diagnosis?: No VTE Prior VTE?: No VTE Risk Level:: Medical - moderate - high VTE Device Contraindication: Treatment Not Indicated VTE Drug Contraindication: N/A - Med Ordered
--- NOTE | 2024-10-13 19:40 | PHA.MEDREC ---
Addendum entered by Faith Harmon RPh 10/13/24 21:32: reviewed by [facility]. Original Note: Pharmacy Consult ? Medication Reconciliation Pharmacy has completed the medication reconciliation. Spoke with patient and she was able to confirm her medications and confirmed she is a Dialysis patient who was suppose to go today but was not able to due to coming here. She confirmed the Furosemide 80mg tab and confirmed she is taking 3 tabs (240mg) on Sundays, Tuesdays, and Saturdays and confirmed she took it yesterday. She confirmed her Gabapentin 100mg tab and states shes been trying to ween off of it and is not taking 1 tab twice a day. She confirmed the Metolazone 5mg tab and confirmed she is taking it Sundays, Tuesdays, and Saturdays. She states she is now taking the Metoprolol 25mg tab 1/2 tab twice daily. She confirmed she took all her medications yesterday.
[2024-10-13] MEDS: Heparin Sodium,Porcine 5,000 UNIT/ML VIAL 5000 UNIT SUBCUT (19:51)
--- NOTE | 2024-10-13 19:57 | PC.NURSE ---
pt ate 100% of dinner pt medicated per MAR. plan is to admit pt to medr. nica placed, XR of left foot pending.
[2024-10-13 20:07] VITALS: BP 110/33; PULSE 95; RESP 14; TEMP 36.9; O2SAT 97
[2024-10-13 21:21] VITALS: BP 110/91; PULSE 92
[2024-10-13] MEDS: Metoprolol Tartrate 25 MG TABLET PO (21:21)
[2024-10-13] MEDS: Amitriptyline HCl 25 MG TABLET PO (21:41)
[2024-10-13] MEDS: Gabapentin 100 MG CAPSULE PO (21:41)
--- NOTE | 2024-10-13 21:52 | PC.NURSE ---
RE 2100 medications, [facility]ah[facility] was not allowing meds to be retreved for 2100. spoke with Brea in pharmacy- was able to modify orders to allow for meds to be administered. duplicate orders marked as not given
--- NOTE | 2024-10-13 22:10 | PC.NURSE ---
pt medicated per LISA- MD Hyde notified of pt soft pressures as well as pain. pt also complains of pain in her shingles rash- per MD administer gabapentin, no new orders at this time
--- NOTE | 2024-10-13 22:14 | MHC.EDTECH ---
this tech took pt off bedpan for a stool sample. edilma care was done, pt now comfortable in bed with call barr within reach
[2024-10-14] MEDS: 0.9 % Sodium Chloride Flush 3 ML SYRINGE IVFLUSH ×4 (01:07→20:21)
[2024-10-14] MEDS: Heparin Sodium,Porcine 5,000 UNIT/ML VIAL 5000 UNIT SUBCUT ×3 (02:53→18:40)
[2024-10-14 03:57] VITALS: BP 114/43; PULSE 80; RESP 12; TEMP 36.8; O2SAT 94
[2024-10-14 04:57] LABS: Hematocrit 27.1 % (37.0-47.0); Hemoglobin 9.4 g/dl (12.0-16.0); Mean Corpuscular HGB Conc 34.7 g/dl (31.0-35.0); Mean Corpuscular Hemoglobin 31.5 pg (27.0-33.0); Mean Corpuscular Volume 90.9 fL (80.0-98.0); Mean Platelet Volume 8.6 fL (9.4-12.3); Platelet Count 296 X10*3/uL (160-400); Red Blood Count 2.98 X10*6/uL (4.20-5.50); Red Cell Distribution Width 13.6 % (11.0-16.0); White Blood Count 5.1 X10*3/uL (4.8-10.8)
[2024-10-14 05:35] LABS: Anion Gap 17 (12-20); Blood Urea Nitrogen 75 mg/dL (9-16); Calcium 8.8 mg/dL (8.4-10.2); Carbon Dioxide 26 mmol/L (22-29); Chloride 92 mmol/L (96-108); Creatinine Clr Calc Pharmacy 9.5; Estimated Glomerular Filt Rate 7; Glucose Random 105 mg/dL (60-115); Potassium 3.6 mmol/L (3.3-5.1); Sodium 131 mmol/L (135-145)
[2024-10-14] MEDS: Acetaminophen 325 MG TABLET 975 MG PO (05:54)
--- NOTE | 2024-10-14 08:45 | HO.PM.IMPN ---
Subjective Subjective Date of Service: 10/14/24 Interval History: still feeling shaky Physical Exam Vital Signs: Vital Signs: Last Vital Signs Temp 98.3 F 10/14/24 03:57 Pulse 80 10/14/24 03:57 Resp 12 10/14/24 03:57 BP 114/43 L 10/14/24 03:57 Pulse Ox 94 10/14/24 03:57 O2 Del Method Room Air 10/14/24 03:57 BMI result Body Mass Index 40.6 General: AO X 3, no acute distress Resp: CTA bilateral, no accessory muscles used CVS: S1,S2,RRR GI: soft, non tender, non distended Neuro: motor grossly intact, alert Psych: appropriate affect, appropriate insight Objective Data Active Medications Acetaminophen (Acetaminophen 325 Mg Tablet) 975 mg PO Q6H PRN PRN Reason: Pain, Mild 1-3,fever,headache Last Admin: 10/14/24 05:54 Dose: 975 mg Documented By: RHONDA Albuterol Sulfate (Albuterol Sulfate 90 Mcg 8 Gm Inhaler) 2 puff INHALE Q6H PRN PRN Reason: shortness of breath or wheezing Alprazolam (Alprazolam 0.25 Mg Tablet) 0.125 mg PO BID PRN PRN Reason: Anxiety Amitriptyline HCl (Amitriptyline Hcl 25 Mg Tablet) 25 mg PO BEDTIME [facility] Last Admin: 10/13/24 21:51 Dose: Not Given Documented By: IBETH Non-Admin Reason: Duplicate Order Calcium Carbonate (Calcium Carbonate 750 Mg Tab.Chew) 750 mg PO Q4H PRN PRN Reason: Heartburn Gabapentin (Gabapentin 100 Mg Capsule) 100 mg PO BID [facility] Guaifenesin/Dextromethorphan (Guaifenesin Dm 100/10/5 Ml 5 Ml Syrup) 10 ml PO Q4H PRN PRN Reason: Cough Heparin Sodium (Porcine) (Heparin Sodium,Porcine 5,000 Unit/Ml Vial) 5,000 unit SUBCUT Q8H [facility] Last Admin: 10/14/24 02:53 Dose: 5,000 unit Documented By: RHONDA Magnesium Hydroxide (Milk Of Magnesia 30 Ml Oral.Susp) 30 ml PO DAILY PRN PRN Reason: Constipation Melatonin (Melatonin 3 Mg Tablet) 6 mg PO BEDTIME PRN PRN Reason: Insomnia Metoprolol Tartrate (Metoprolol Tartrate 12.5 Mg Halftab) 12.5 mg PO BID [facility]; Protocol Sevelamer Carbonate (Sevelamer Carbonate Tablet 800 Mg Tablet) 2,400 mg PO TIDWM [facility] Sodium Chloride (0.9 % Sodium Chloride Flush 3 Ml Syringe) 3 ml IVFLUSH QSHIFT ASTRID Last Admin: 10/14/24 01:07 Dose: 3 ml Documented By: RHONDA Labs 10/14/24 04:35 10/14/24 04:35 Labs: Laboratory Results - last 24 hr 10/13/24 10/13/24 10/13/24 10:42 10:43 13:45 MCV 92.0 MCH 31.1 MCHC 33.8 RDW 13.8 Plt Count 310 MPV 8.4 L Immature Gran % (Auto) 0.6 H Neut % (Auto) 60.3 Lymph % (Auto) 25.8 [place] % (Auto) 13.1 H Eos % (Auto) 0.0 Baso % (Auto) 0.2 Lymph # (Auto) 1.3 [place] # (Auto) 0.7 Eos # (Auto) 0.0 Baso # (Auto) 0.0 Abs Immat Gran (auto) 0.03 Absolute Neuts (auto) 3.0 Absolute Nucleated RBC 0.000 Nucleated RBC % (auto) 0.0 Anion Gap 16 Estim Creat Clear Calc 9.4 Estimated GFR 7 Random Glucose 92 Calcium 9.1 Magnesium 3.0 H Total Bilirubin 0.5 Direct Bilirubin 0.1 AST 23 ALT 13 Alkaline Phosphatase 112 Troponin I High Sens 6.3 D 7.1 Total Protein 7.0 Albumin 3.9 Influenza Type A (PCR) Influenza Type B (PCR) RSV RNA Qual (PCR) SARS-CoV-2 RNA (RT-PCR) 10/13/24 10/14/24 15:15 04:35 MCV 90.9 MCH 31.5 MCHC 34.7 RDW 13.6 Plt Count 296 MPV 8.6 L Immature Gran % (Auto) Neut % (Auto) Lymph % (Auto) [place] % (Auto) Eos % (Auto) Baso % (Auto) Lymph # (Auto) [place] # (Auto) Eos # (Auto) Baso # (Auto) Abs Immat Gran (auto) Absolute Neuts (auto) Absolute Nucleated RBC 0.000 Nucleated RBC % (auto) 0.0 Anion Gap 17 Estim Creat Clear Calc 9.5 Estimated GFR 7 Random Glucose 105 Calcium 8.8 Magnesium Total Bilirubin Direct Bilirubin AST ALT Alkaline Phosphatase Troponin I High Sens Total Protein Albumin Influenza Type A (PCR) NEGATIVE Influenza Type B (PCR) NEGATIVE RSV RNA Qual (PCR) NEGATIVE SARS-CoV-2 RNA (RT-PCR) NEGATIVE Assessment and Plan (1) ESRD (end stage renal disease) on dialysis: Status: Acute Plan 78F [facility] 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 End-stage renal disease Nephrology eval, hemodialysis, phosphate binder Fall Possibly due to dehydration, orthostasis Given 500 cc normal saline, holding diuretics PT eval Paroxysmal atrial fibrillation Appears remote, does not appear to be on anticoagulation, continue lopressor DVT prophylaxis-heparin subQ full code reason for continued hospitalization:pt eval Quality Stroke Does the patient have a stroke diagnosis?: No VTE Prior VTE?: No VTE Risk Level:: Medical - moderate - high VTE Device Contraindication: Treatment Not Indicated VTE Drug Contraindication: N/A - Med Ordered
[2024-10-14] MEDS: Metoprolol Tartrate 12.5 MG HALFTAB PO ×2 (08:54→20:22)
[2024-10-14 09:07] VITALS: BP 125/70; PULSE 75; RESP 18; TEMP 37.2; O2SAT 97
[2024-10-14] MEDS: Gabapentin 100 MG CAPSULE PO ×2 (09:16→20:22)
[2024-10-14 09:20] LABS: Phosphorus 5.7 mg/dL (2.7-4.5)
[2024-10-14] MEDS: diphenhydrAMINE HCL 25 MG CAPSULE PO ×2 (09:33→18:56)
[2024-10-14] MEDS: Sevelamer Carbonate Tablet 800 MG TABLET 2400 MG PO ×2 (11:25→18:39)
[2024-10-14] MEDS: Docusate Sodium 100 MG CAPSULE PO ×2 (11:25→20:22)
[2024-10-14 19:49] VITALS: BP 154/67; PULSE 82; RESP 18; TEMP 36.2; O2SAT 97
[2024-10-14] MEDS: Amitriptyline HCl 25 MG TABLET PO ×2 (20:22)
[2024-10-15] MEDS: Heparin Sodium,Porcine 5,000 UNIT/ML VIAL 5000 UNIT SUBCUT ×2 (03:10→17:44)
[2024-10-15 03:26] VITALS: BP 127/58; PULSE 76; RESP 18; TEMP 36.8; O2SAT 98
[2024-10-15 07:36] VITALS: BP 138/63; PULSE 78; RESP 18; TEMP 36.3; O2SAT 97
[2024-10-15] MEDS: 0.9 % Sodium Chloride Flush 3 ML SYRINGE IVFLUSH ×3 (08:37→20:36)
[2024-10-15] MEDS: Sevelamer Carbonate Tablet 800 MG TABLET 2400 MG PO ×2 (08:37→17:44)
[2024-10-15] MEDS: Gabapentin 100 MG CAPSULE PO ×2 (08:38→20:36)
[2024-10-15] MEDS: Docusate Sodium 100 MG CAPSULE PO ×2 (08:38→20:36)
[2024-10-15] MEDS: Metoprolol Tartrate 12.5 MG HALFTAB PO ×2 (08:38→20:36)
--- NOTE | 2024-10-15 11:18 | MHC.CM.PN ---
Addendum entered by Rabia Sandhu 10/15/24 13:42: Patient did not have a Temp today. The Temp was reported on the wrong patient by staff to . She will discharge to [facility] tomorrow. Addendum entered by Rabia Sandhu 10/15/24 11:46: Patient has a bed offer from [facility]. Per MD she is not cleared for discharge today R/T temp. Original Note: IMM 10/15/24 Patient lives with her son. 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 He assists with ADLs house keeping and transportation. HCP is on file. No PCP uses Dr [facility] PT EVAL rec STR. PT preference for STR [facility]. A referral has been sent to the SNF for STR DP STR via BLS.
--- NOTE | 2024-10-15 11:46 | HO.PM.IMPN ---
Subjective Subjective Date of Service: 10/15/24 Interval History: seen and evaluated this morning reports mild headache had fever overnight no other events Review of Systems Review of Systems: Yes all other systems are reviewed and are negative Physical Exam Vital Signs: Vital Signs: Last Vital Signs Temp 97.3 F 10/15/24 07:36 Pulse 78 10/15/24 07:36 Resp 18 10/15/24 07:36 BP 138/63 10/15/24 07:36 Pulse Ox 97 10/15/24 07:36 O2 Del Method Room Air 10/15/24 07:36 BMI result Body Mass Index 40.6 Const: Other: Constitutional : interactive, not in distress Cardiovascular : no JVP, no lower extremity edema Respiratory : bilateral chest movement, not in resp distress Gastrointestinal: soft, lax, Non tender Skin : Warm, Dry Neurological : Alert & oriented , No focal deficit Objective Data Active Medications Acetaminophen (Acetaminophen 325 Mg Tablet) 975 mg PO Q6H PRN PRN Reason: Pain, Mild 1-3,fever,headache Last Admin: 10/14/24 05:54 Dose: 975 mg Documented By: RHONDA Albuterol Sulfate (Albuterol Sulfate 90 Mcg 8 Gm Inhaler) 2 puff INHALE Q6H PRN PRN Reason: shortness of breath or wheezing Alprazolam (Alprazolam 0.25 Mg Tablet) 0.125 mg PO BID PRN PRN Reason: Anxiety Amitriptyline HCl (Amitriptyline Hcl 25 Mg Tablet) 25 mg PO BEDTIME [facility] Last Admin: 10/14/24 20:22 Dose: 25 mg Documented By: SANCHO Calcium Carbonate (Calcium Carbonate 750 Mg Tab.Chew) 750 mg PO Q4H PRN PRN Reason: Heartburn Diphenhydramine HCl (Diphenhydramine Hcl 25 Mg Capsule) 25 mg PO Q6H PRN PRN Reason: pruritis Last Admin: 10/14/24 18:56 Dose: 25 mg Documented By: JING Docusate Sodium (Docusate Sodium 100 Mg Capsule) 100 mg PO BID [facility] Last Admin: 10/15/24 08:38 Dose: 100 mg Documented By: AVRIL Gabapentin (Gabapentin 100 Mg Capsule) 100 mg PO BID [facility] Last Admin: 10/15/24 08:38 Dose: 100 mg Documented By: AVRIL Guaifenesin/Dextromethorphan (Guaifenesin Dm 100/10/5 Ml 5 Ml Syrup) 10 ml PO Q4H PRN PRN Reason: Cough Heparin Sodium (Porcine) (Heparin Sodium,Porcine 5,000 Unit/Ml Vial) 5,000 unit SUBCUT Q8H [facility] Last Admin: 10/15/24 03:10 Dose: 5,000 unit Documented By: SANCHO Magnesium Hydroxide (Milk Of Magnesia 30 Ml Oral.Susp) 30 ml PO DAILY PRN PRN Reason: Constipation Melatonin (Melatonin 3 Mg Tablet) 6 mg PO BEDTIME PRN PRN Reason: Insomnia Metoprolol Tartrate (Metoprolol Tartrate 12.5 Mg Halftab) 12.5 mg PO BID [facility]; Protocol Last Admin: 10/15/24 08:38 Dose: 12.5 mg Documented By: AVRIL Sevelamer Carbonate (Sevelamer Carbonate Tablet 800 Mg Tablet) 2,400 mg PO TIDWM [facility] Last Admin: 10/15/24 08:37 Dose: 2,400 mg Documented By: AVRIL Sodium Chloride (0.9 % Sodium Chloride Flush 3 Ml Syringe) 3 ml IVFLUSH QSHIFT [facility] Last Admin: 10/15/24 08:37 Dose: 3 ml Documented By: AVRIL Labs 10/14/24 04:35 10/14/24 04:35 Assessment and Plan (1) Weakness: Status: Acute (2) ESRD (end stage renal disease) on dialysis: Status: Acute (3) Fall: Status: Acute (4) Fever: Status: Acute Plan 78F PMH 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 Fever T of 102.9, no SIRS complains of congestion and headache check viral panel, CXR and UA for now hold on Abx until results are back as could be viral illness. End-stage renal disease Nephrology eval, hemodialysis, phosphate binder Fall Possibly due to dehydration, orthostasis and underlying infection process improved with 500 cc normal saline and holding diuretics PT eval rec STR Paroxysmal atrial fibrillation Appears remote, does not appear to be on anticoagulation, continue lopressor DVT prophylaxis-heparin subQ full code reason for continued hospitalization: fever for evaluation Quality Stroke Does the patient have a stroke diagnosis?: No VTE Prior VTE?: No VTE Risk Level:: Medical - moderate - high VTE Device Contraindication: Treatment Not Indicated VTE Drug Contraindication: N/A - Med Ordered
[2024-10-15] MEDS: ondansetron HCL 4 MG/2 ML VIAL IVPUSH ×2 (15:05→22:21)
[2024-10-15 15:28] VITALS: BP 149/64; PULSE 91; RESP 18; TEMP 36.3; O2SAT 95
[2024-10-15 19:06] VITALS: BP 146/65; PULSE 88; RESP 16; TEMP 36.4; O2SAT 96
[2024-10-15] MEDS: Amitriptyline HCl 25 MG TABLET PO (20:36)
[2024-10-15] MEDS: diphenhydrAMINE HCL 25 MG CAPSULE PO (20:38)
[2024-10-16] MEDS: Heparin Sodium,Porcine 5,000 UNIT/ML VIAL 5000 UNIT SUBCUT ×2 (02:19→09:22)
[2024-10-16 03:16] VITALS: BP 114/55; PULSE 80; RESP 16; TEMP 36.1; O2SAT 95
[2024-10-16 07:47] VITALS: BP 134/61; PULSE 85; RESP 17; TEMP 36.6; O2SAT 98
[2024-10-16] MEDS: Gabapentin 100 MG CAPSULE PO (08:10)
[2024-10-16] MEDS: Docusate Sodium 100 MG CAPSULE PO (08:10)
[2024-10-16] MEDS: Metoprolol Tartrate 12.5 MG HALFTAB PO (08:10)
[2024-10-16] MEDS: 0.9 % Sodium Chloride Flush 3 ML SYRINGE IVFLUSH (08:11)
[2024-10-16 08:46] LABS: Basophils Percent Auto 0.2 % (0-2); Hematocrit 32.7 % (37.0-47.0); Hemoglobin 11.1 g/dl (12.0-16.0); Imm Gran Abs Auto 0.02 X10*3/uL (0.00-0.03); Imm Gran Pct Auto 0.4 % (0.0-0.4); Lymphocytes Absolute Auto 1.8 X10*3/uL (1.2-4.9); Lymphocytes Percent Auto 34.9 % (20-40); Mean Corpuscular HGB Conc 33.9 g/dl (31.0-35.0); Mean Corpuscular Hemoglobin 31.3 pg (27.0-33.0); Mean Corpuscular Volume 92.1 fL (80.0-98.0); Mean Platelet Volume 9.5 fL (9.4-12.3); Monocytes Absolute Auto 0.8 X10*3/uL (0.1-1.2); Monocytes Percent Auto 14.7 % (2-11); Neutrophils Absolute Auto 2.6 x10*3/uL (2.0-8.3); Neutrophils Percent Auto 49.8 % (45-73); Platelet Count 235 X10*3/uL (160-400); Red Blood Count 3.55 X10*6/uL (4.20-5.50); Red Cell Distribution Width 14.1 % (11.0-16.0); White Blood Count 5.2 X10*3/uL (4.8-10.8)
--- NOTE | 2024-10-16 08:51 | MHC.CM.PN ---
IMM 10/15/24 Patient is discharged to [facility] for STR and HD @ [facility]. 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 An early lunch has been ordered for the patient.
[2024-10-16 08:57] LABS: Anion Gap 18 (12-20); Blood Urea Nitrogen 28 mg/dL (9-16); Calcium 9.9 mg/dL (8.4-10.2); Carbon Dioxide 22 mmol/L (22-29); Chloride 102 mmol/L (96-108); Creatinine Clr Calc Pharmacy 14.9; Estimated Glomerular Filt Rate 11; Glucose Random 88 mg/dL (60-115); Potassium 3.9 mmol/L (3.3-5.1); Sodium 138 mmol/L (135-145)
[2024-10-16] MEDS: Sevelamer Carbonate Tablet 800 MG TABLET 2400 MG PO (09:22)
--- NOTE | 2024-10-16 11:03 | P.DS_ITS ---
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 Patient states she has been feeling shaky and weak on day of presentation and was walking walker and fell down. Denies any lightheadedness loss of consciousness. No fever, chills, chest pain, shortness of breath. Denies dysuria or frequency. Denies abdominal pain, nausea, vomiting, diarrhea. In ED trauma workup was negative so far. Though is complaining of lateral left foot pain. Hospital course The patient was evaluated for Fall likely due to dehydration, orthostasis which improved with 500 cc normal saline and holding diuretics. discussed with dr Brown who recommended to DC Lasix and Metolazone at time of discharge. She was evaluated by PT who recommended STR on discharge. [facility]. For End-stage renal disease Nephrology followed her for hemodialysis, phosphate binder continued. Has unclear hx of Paroxysmal atrial fibrillation and does not appear to be on a nticoagulation, continue lopressor on discharge. Discharge plan Discontinue Lasix and Metolazone Follow with nephrology as planned Physical therapy at nursing facility Time Attestation Discharge Coordination Time (in mins): 38 Quality: Safe Use of Opioids Does Pt have an Active Cancer Diagnosis on the Problem List?: No Quality: Stroke Does the patient have a stroke diagnosis?: No Physical Exam Vital Signs: Vital Signs: Last Vital Signs Temp 97.8 F 10/16/24 07:47 Pulse 85 10/16/24 07:47 Resp 17 10/16/24 07:47 BP 134/61 10/16/24 07:47 Pulse Ox 98 10/16/24 07:47 O2 Del Method Room Air 10/16/24 07:47 BMI result Body Mass Index 40.6 Const: Other: Constitutional : interactive, not in distress Cardiovascular : no JVP, no lower extremity edema Respiratory : bilateral chest movement, not in resp distress Gastrointestinal: soft, lax, Non tender Skin : Warm, Dry Neurological : Alert & oriented , No focal deficit DS: Data Data Completed and Pending Completed studies during hospitalization [Text1]: Procedures Performance of Urinary Filtration, Intermittent, Less than 6 Hours Per Day (04/05/24) Labs on day of discharge: Laboratory Results - last 24 hr 10/16/24 07:50 WBC 5.2 RBC 3.55 L Hgb 11.1 L Hct 32.7 L D MCV 92.1 MCH 31.3 MCHC 33.9 RDW 14.1 Plt Count 235 MPV 9.5 Immature Gran % (Auto) 0.4 Neut % (Auto) 49.8 Lymph % (Auto) 34.9 [place] % (Auto) 14.7 H Eos % (Auto) 0.0 Baso % (Auto) 0.2 Lymph # (Auto) 1.8 [place] # (Auto) 0.8 Eos # (Auto) 0.0 Baso # (Auto) 0.0 Abs Immat Gran (auto) 0.02 Absolute Neuts (auto) 2.6 Absolute Nucleated RBC 0.000 Nucleated RBC % (auto) 0.0 Sodium 138 Potassium 3.9 Chloride 102 Carbon Dioxide 22 Anion Gap 18 BUN 28 H Creatinine 3.84 H Estim Creat Clear Calc 14.9 Estimated GFR 11 Random Glucose 88 Calcium 9.9 D Imaging Chest x-ray: Radiologist's impression: ITS Impressions Head CT 10/13/24 10:04 IMPRESSION: No acute intracranial process seen. Right apical scalp contusion without calvarial fracture. There is no acute fracture, dislocation or subluxation cervical spine. There is reversal of cervical lordosis from spasm. Mild degenerative disc changes C5-6 disc level with ventral and posterior spondylosis Electronically signed by: Gilmer Pena MD 10/13/2024 02:33 PM EST Cervical Spine CT 10/13/24 11:16 IMPRESSION: No acute intracranial process seen. Right apical scalp contusion without calvarial fracture. There is no acute fracture, dislocation or subluxation cervical spine. There is reversal of cervical lordosis from spasm. Mild degenerative disc changes C5-6 disc level with ventral and posterior spondylosis Electronically signed by: Gilmer Pena MD 10/13/2024 02:33 PM EST RP Chest X-Ray 10/13/24 15:02 IMPRESSION: Chronic interstitial lung disease. Electronically signed by: Nick Cedeño MD 10/13/2024 03:54 PM EST RP Discharge Plan Discharge Anticipated Discharge Date/Time: 10/16/24 10:58 Patient Disposition: Xfer SNF Discharge Diagnosis: Fall, physical deconditioning Referrals: Romel Billingsley [Outside] - 1 Week Physician,None [Primary Care Provider] - 1 Week Discharge Medications: Continued amitriptyline 25 mg tablet 25 mg PO BEDTIME dextromethorphan-guaifenesin 10-100 mg/5 mL Liquid 10 ml PO Q4H PRN (Reason: Cough) metoprolol tartrate 25 mg tablet 12.5 mg PO BID gabapentin 100 mg capsule 100 mg PO BID sevelamer carbonate [Renvela] 800 mg tablet 2,400 mg PO TIDWM sevelamer carbonate [Renvela] 800 mg tablet 800 mg PO DAILY PRN (Reason: snack) albuterol sulfate 90 mcg/actuation HFA aerosol inhaler 2 puff inhalation Q6H PRN (Reason: shortness of breath or wheezing) Qty: 6.7 0RF Discontinued furosemide 80 mg tablet 240 mg PO SUTUTHSA@0900 metolazone 10 mg tablet 5 mg PO SUTUTHSA Discharge Orders: Discharge Order (Routine); Ordered 10/16/24 Ordered By: Telma Ozuna Diet: Advance to usual diet Activity on Discharge: As tolerated Stand Alone Forms: Patient Portal Discharge page Print Language: Honduran Care Plan Goals: Discontinue Lasix and Metolazone Follow with nephrology as planned Physical therapy at nursing facility Health Concerns: Physical deconditioning Plan of Treatment: Therapy Assessment: as above
--- NOTE | 2024-10-18 02:04 | PC.NURSE ---
on 10/14/23 at 0554 pt given 975 tylenol given per pt request
== END 2024-10-16 13:33 | disposition skilled nursing facility (03) | DRG 640 ==
LOC: HO.ED 17:14 → HO.EDOVER 17:55 → HO.S3 10-14 05:59
PROVIDERS: Physician Assistant Medical; Admitting Provider Internal Medicine; Emergency Provider Emergency Medicine Emergency Medical Services; Visit Provider Student in an Organized Health Care Education/Training Program
DX: E86.0 Dehydration (principal); N18.6 End stage renal disease; I12.0 Hypertensive chronic kidney disease with stage 5 chronic kidney disease or end stage renal disease; I48.0 Paroxysmal atrial fibrillation; Z20.822 Contact with and (suspected) exposure to COVID-19; Z99.2 Dependence on renal dialysis; W19.XXXA Unspecified fall, initial encounter; Z91.158 Patient's noncompliance with renal dialysis for other reason; Z79.899 Other long term (current) drug therapy
CPT/HCPCS: 0241U; 36415; 70450; 71046; 72125; 73630; 80048; 80076; 83735; 84100; 84484; 85025; 85027; 90999; 93005; 97110; 97162; 99285; J1644; J2405

== ENCOUNTER → 2024-10-13 10:04 | Outpatient (BNV) | payer MEDICARE, MEDICAID, SELFPAY | PROVIDERS: Emergency Provider Emergency Medicine Emergency Medical Services; Visit Provider Radiology Diagnostic Radiology | DX: M54.2 Cervicalgia (principal); S00.03XA Contusion of scalp, initial encounter; R53.1 Weakness; M79.672 Pain in left foot | CPT/HCPCS: 70450; 72125 ==

== ENCOUNTER → 2024-10-13 10:04 | Outpatient (BNV) | payer MEDICARE, MEDICAID, SELFPAY | PROVIDERS: Admitting Provider Internal Medicine; Emergency Provider Emergency Medicine Emergency Medical Services; Visit Provider Internal Medicine | DX: R94.31 Abnormal electrocardiogram [ECG] [EKG] (principal) | CPT/HCPCS: 93010 ==

== ENCOUNTER → 2024-10-13 17:52 | Outpatient (BNV) | payer MEDICARE, MEDICAID, SELFPAY | PROVIDERS: Admitting Provider Internal Medicine; Emergency Provider Emergency Medicine Emergency Medical Services; Visit Provider Internal Medicine | DX: R53.1 Weakness (principal); N18.6 End stage renal disease; Z99.2 Dependence on renal dialysis; W19.XXXA Unspecified fall, initial encounter; R50.9 Fever, unspecified; R53.81 Other malaise | CPT/HCPCS: 99222; 99232; 99239 ==

== ENCOUNTER 2025-02-05 10:34 | Outpatient (AMB) | payer SELFPAY ==
--- NOTE | 2025-02-05 10:36 | MHC.OFFVIS ---
Vital Signs 02/05/25 10:38 Height 5 ft 5 in Intake Visit Reasons: prolonged bleeding from fistula Intake Note: Pt re-referred for fistula bleeding after dialysis for the past few weeks. Sunday, sunday and sunday dialysis. Account Service Associate Required: No Accompanied by: Son Allergies morphine [MORPHINE] Allergy (Intermediate, Verified 02/05/25 10:41) FAINTED HPI HPI prolonged bleeding from fistula: Details: The patient is a 79-year-old female presenting with follow-up concerns regarding her brachiocephalic arteriovenous fistula. The fistula was initiated roughly six years ago, followed by branch ligation and superficialization in March 2019. Since the procedures, a recurring issue has been bleeding, especially from the top of the fistula. The patient previously consulted with Dr. Oates for bleeding management, undergoing two or three interventions, the latest being almost a year ago. The last intervention was notably painful, with sensations of extending issues into her neck. The patient undergoes dialysis thrice weekly on consecutive Mondays, Wednesdays, and Fridays. She now presents for follow-up evaluation regarding her fistula. [facility] Medical History (Updated 02/05/25 @ 10:58 by Danilo Serrano MD) ESRD (end stage renal disease) on dialysis History of shingles AV fistula Hypertension Atrial fibrillation Anemia ESRD (end stage renal disease) Social History Household Members: None Housing: Apartment Do you presently have visiting nurse or other home services: Yes (3 TIMES A WEEK) Patient Tobacco Use Status: Former Tobacco user service: No Review of Systems Const All systems reviewed & are unremarkable except as noted in HPI and below Reports no additional complaints ENT Reports Normal hearing present Card Denies chest pain, Denies chest pain at rest, Denies chest pain with activity and Denies pedal edema Resp Denies cough GI Denies abdominal pain Musc Denies abnormal gait, Denies muscle cramps and Denies radiating pain into limb Skin/Breast Denies skin ulcer and Denies wounds Neuro Reports Normal hearing present and Denies abnormal gait Psych Reports no additional complaints Physical Exam Const General: cooperative, healthy appearing and comfortable Orientation/consciousness: oriented to person, oriented to place and oriented to time HEENT Head: Yes normal to inspection Neck Neck: Yes normal visual inspection Carotids: no bruits Chest Chest palpation & inspection: normal inspection of the chest Resp Effort & Inspection: normal respiratory effort and able to speak in complete sentences Auscultation: clear to auscultation bilaterally, no crackles, no rales, no rhonchi and no wheezes Cardio Rate: regular rate Rhythm: regular rhythm Heart sounds: S1 normal heart sound present and S2 normal heart sound present Bruits: no carotid bruits Peripheral pulses: Peripheral pulses 2+ throughout GI Inspection: Yes normal to inspection Skin Other: Left upper extremity fistula with good thrill. Two aneurysmal portions of the fistula. Wounds: no wounds Hair: normal Neuro General: oriented to person, oriented to place and oriented to time Cranial nerves: Yes CN's II-XII intact bilaterally and Yes Normal hearing present Cognition (Neuro): normal cognition Motor exam (neuro): 5/5 motor strength present throughout Extrem Other: venous exam: No significant superficial varicosities or spider telangiectasias, minimal edema General: No clubbing, No cyanosis and No edema Psych Appearance: grossly normal Mental Status: mental status grossly normal Speech and movement: Normal speech and movement present Assessment & Plan Assessment & Plan (1) ESRD (end stage renal disease) on dialysis: Code(s): N18.6 - End stage renal disease; Z99.2 - Dependence on renal dialysis Category: Medical Plan: Patient has prolonged bleeding from her left upper extremity fistula. the patient would benefit from a left upper extremity fistulogram with possible angioplasty, stent, and/or atherectomy. This has been discussed in detail with the patient along with risks, benefits, and complications. This includes but is not limited to bleeding, infection, heart attack, need for emergent surgical repair, limb ischemia, blood vessel damage, bleeding, puncture, kidney injury, bruising, allergic reaction, and skin reaction. The patient demonstrates a clear understanding. We will schedule for the next appropriate time. Thank you for allowing us to assist in this patient's care. Plan Patient was informed and verbally consented to the use of an ambient scribe for clinic note documentation during this visit. Patient Instructions: - Do not eat or drink after midnight before the procedure. - Expect to arrive at the hospital early for the scheduled procedure. - Follow dialysis schedule unless rescheduled by the staff. - Report any increased bleeding or significant pain immediately. - Contact provided numbers for any procedural inquiries or issues. Coding Level of Care Code Est Pt Level 4 (20503) Diagnoses ESRD (end stage renal disease) on dialysis N18.6; Z99.2
--- OUTSIDE RECORDS SUMMARY | 2025-02-05 12:09 | XMS_ITS | Encounter Summary ---
Author Organization [facility] Address [address] [place] [address] Phone Care Team Providers Care Die Maintenance Technician Name Role Phone Unavailable Primary Care Provider Unavailabl e Encounter Details Date Type Department Care Team (Late st Contact Info) Description 01/16/2025 Treatment [facility] [address] [place] [address] Gustavo Hanson MD [address] [address] End stage renal disease; Dependence on renal dialysis Social History Tobacco Use Types Packs/Day Years Used Date Smoking Tobacco: Never Assessed Comments Unknown Sex and Gender Information Value Date Recorded Sex Assigned at Not on file Legal Sex Female 4:53 PM EST Gender Identity Not on file Sexual Orientation Not on file documented as of this encounter Miscellaneous Notes * Dialysis Note - Gustavo Hanson MD - 01/16/2025 12:00 AM EDT BASIC NOTE Patient: Simran Yip : 1945 Note Author: GUSTAVO HANSON MD Service Date: 01/16/2025 Telehealth encounter using audiovisual technology, performed according to state requirements. Appropriate patient consent obtained. This patient was personally seen for a basic visit as part of routine monthly dialysis care for end stage renal disease. Attending Airveyor Operator: GUSTAVO HANSON MD Dialysis Location: [facility] Schedule: Shift: 2 ADEQUACY ASSESSMENT Kt/V, Natural Log 1.63 (01/07/25) 1.62 (12/12/24) 1.82 (10/17/24) UREA REDUCTION RATIO (%) 76 (01/07/25) 76 (12/12/24) 80 (10/17/24) BUN 68 (01/07/25) 71 (12/12/24) 51 (10/17/24) BUN Post Dialysis 16 (01/07/25) 17 (12/12/24) 10 (10/17/24) Creatinine 5.46 (01/07/25) 5.25 (12/12/24) 5.31 (10/17/24) Bicarbonate (CO2) 25 (01/07/25) 25 (12/12/24) 21 (10/17/24) Sodium 133 (01/07/25) 130 (12/12/24) 133 (10/17/24) ANEMIA ASSESSMENT Hgb 11.7 (01/23/25) 11.5 (01/07/25) 11.3 (12/26/24) Iron Saturation (TSat) 35 (01/07/25) 30 (12/12/24) 39 (10/17/24) Ferritin 666 (01/07/25) 1,018 (12/12/24) 1,555 (10/17/24) Iron 99 (01/07/25) 85 (12/12/24) 116 (10/17/24) TIBC 281 (01/07/25) 287 (12/12/24) 300 (10/17/24) MCV 97.5 (01/07/25) 95.2 (12/12/24) 95.2 (10/17/24) Platelets 327 (01/07/25) 283 (12/12/24) 333 (10/17/24) BMM ASSESSMENT Calcium, Adjusted Total 9.6 01/07/25 9.6 12/12/24 10.1 10/17/24 Calcium 9.6 01/07/25 9.6 12/12/24 10.1 10/17/24 Phosphorus, Serum 5.5 01/07/25 5.5 12/12/24 4.3 10/17/24 Ca*PO4 52.8 01/07/25 52.8 12/12/24 43.4 10/17/24 PTH, Intact 431 01/07/25 262 10/17/24 Vitamin D, 25-Hydroxy 39 10/17/24 Magnesium 2.7 01/07/25 3.1 12/12/24 2.8 10/17/24 Alkaline Phosphatase 130 01/07/25 145 12/12/24 122 10/17/24 Aluminum 3 10/17/24 NUTRITION ASSESSMENT Albumin 4.4 01/07/25 4.6 12/12/24 4.6 10/17/24 Potassium 4.9 01/07/25 4.8 12/12/24 4.2 10/17/24 ADDITIONAL LABS White Blood Cells 5.2 (01/07/25) 5.0 (12/12/24) 5.1 (10/17/24) Cholesterol 207 (01/07/25) 210 (10/17/24) HDL 65 (01/07/25) 74 (10/17/24) LDL-Calc 112 (01/07/25) 89 (10/17/24) Triglycerides 152 (01/07/25) 236 (10/17/24) Hep B Surface Antibody <4 (10/17/24) <4 (09/17/24) Uric Acid 5.7 (10/17/24) ADDITIONAL COMMENT COMMENTS: 12/22/24 no new issues 12/29/24 stable 01/07/25 stable 01/09/25 stable 01/16/25 same 01/23/25 stable 02/02/25 stable 11/17/24 stable 11/19/24 doing ok Stable 06/16/24 doing ok 06/23/24 no new issues 06/30/24 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, will add amytriptyline 07/11/24 stable 07/14/24 stable 07/21/24 no new issues 08/06/24 stable 08/11/24 doing ok 08/18/24 stable, wants to go to 2x/wk HD 08/25/24 stable 09/05/24 same issues 09/08/24 stable 09/15/24 stable 09/24/24 stable 10/10/24 doing ok 10/17/24 no new issues 10/29/24 doing better--and close to dc from [facility] to home 11/07/24 stable Signed by: GUSTAVO HANSON MD on 02/05/2025 at 01:04:39 AM Transcribed by: GUSTAVO HANSON MD on 02/05/2025 at 01:04:39 AM documented in this encounter Plan of Treatment Not on file documented as of this encounter Visit Diagnoses Diagnosis End stage renal disease Dependence on renal dialysis documented in this encounter
--- OUTSIDE RECORDS SUMMARY | 2025-02-05 12:09 | XMS_ITS | Encounter Summary ---
Author Organization [facility] Address [address] [place] [address] Phone Care Team Providers Care Laborer Shipyard Name Role Phone Unavailable Primary Care Provider Unavailabl e Encounter Details Date Type Department Care Team (Late st Contact Info) Description 02/02/2025 Treatment [facility] [address] [address] Gustavo Hanson MD [address] [address] End stage renal disease; Dependence [...] Dialysis Note - Gustavo Hanson MD - 02/02/2025 12:00 AM EDT BASIC NOTE Patient: Simran Yip : 1945 Note Author: GUSTAVO HANSON MD Service Date: 02/02/2025 This patient was personally seen for a basic visit as part of routine monthly dialysis care for end stage renal disease. Attending Terry Cloth Cutter Hand: GUSTAVO HANSON MD Dialysis Location: [facility] Schedule: M-W-F Shift: 2 ADEQUACY ASSESSMENT Kt/V, Natural Log [...] 10/29/24 doing better--and close to dc from [facility] to home 11/07/24 stable Signed by: GUSTAVO HANSON MD on 02/05/2025 at 01:04:18 AM Transcribed by: GUSTAVO HANSON MD on 02/05/2025 at 01:04:18 AM documented in this encounter Plan of Treatment Not on file documented as of this encounter Visit Diagnoses Diagnosis End stage renal disease Dependence on renal dialysis documented in this encounter
--- OUTSIDE RECORDS SUMMARY | 2025-02-05 12:09 | XMS_ITS | Encounter Summary ---
Author Organization [facility] Address [address] [place] [address] Phone Care Team Providers Care Non Emergency Services Ambulance Driver Name Role Phone Unavailable Primary Care Provider Unavailabl e Encounter Details Date Type Department Care Team (Late st Contact Info) Description 07/18/2022 Telephone [facility] [address] [place] [address] Reyna Pfeiffer Social History Tobacco Use Types Packs/Day Years Used Date Smoking Tobacco: Never Assessed Comments Unknown Sex and Gender Information Value Date Recorded Sex Assigned at Not on file Legal Sex Female 4:53 PM EST Gender Identity Not on file Sexual Orientation Not on file documented as of this encounter Miscellaneous Notes * Telephone Encounter - Reyna Pfeiffer - 07/18/2022 3:16 PM EDT Kahlil called regarding a PT's script,Tartrate 25 mg. She stated PT's old med order stated 1/2 a tablet twice a day and now a recent script stating 1 tablet 2x day for the same medication. She would like to verify the new script dosage and frequency. Please advise. documented in this encounter Plan of Treatment Not on file documented as of this encounter Visit Diagnoses Not on filedocumented in this encounter
--- OUTSIDE RECORDS SUMMARY | 2025-02-05 12:09 | XMS_ITS | Encounter Summary ---
Author Organization [facility] Address [address] [place] [address] Phone Care Team Providers Care Art Sales Consultant Name Role Phone Unavailable Primary Care Provider Unavailabl e Encounter Details Date Type Department Care Team (Late st Contact Info) Description 01/23/2025 Treatment [facility] [address] [place] [address] Gustavo Hanson MD [address] [place] [address] End stage renal disease; Dependence on [...] Dialysis Note - Gustavo Hanson MD - 01/23/2025 12:00 AM EDT BASIC NOTE Patient: Simarn Yip : 1945 Note Author: GUSTAVO HANSON MD Service Date: 01/23/2025 Telehealth encounter using audiovisual technology, performed according to state requirements. Appropriate patient consent obtained. This patient was personally seen for a basic visit as part of routine monthly dialysis care for end stage renal disease. Attending Registered Dental Hygienist: GUSTAVO HANSON MD [facility] [...] 10/29/24 doing better--and close to dc from [facility] to home 11/07/24 stable Signed by: GUSTAVO HANSON MD on 02/05/2025 at 01:05:00 AM Transcribed by: GUSTAVO HANSON MD on 02/05/2025 at 01:05:00 AM * Dialysis Note - Gustavo Hanson MD - 01/23/2025 12:00 AM EDT BASIC NOTE Patient: Simran Yip : 1945 Note Author: GUSTAVO HANSON MD Service Date: 01/23/2025 Telehealth encounter using audiovisual technology, performed according to state requirements. Appropriate patient consent obtained. This patient was personally seen for a basic visit as part of routine monthly dialysis care for end stage renal disease. Attending Registered Dental Hygienist: GUSTAVO HANSON MD Dialysis Location: [facility] Schedule: Shift: 2 ADEQUACY ASSESSMENT Kt/V, [...] 10/29/24 doing better--and close to dc from [facility] to home 11/07/24 stable Signed by: GUSTAVO HANSON MD on 02/05/2025 at 01:05:24 AM Transcribed by: GUSTAVO HANSON MD on 02/05/2025 at 01:05:24 AM documented in this encounter Plan of Treatment Not on file documented as of this encounter Visit Diagnoses Diagnosis End stage renal disease Dependence on renal dialysis documented in this encounter
--- OUTSIDE RECORDS SUMMARY | 2025-02-05 12:09 | XMS_ITS | Data Portability ---
Author Organization [facility] [address] [employer] [facility], Main Office Address [address] [place] [address] Care Team Providers Care Java Manager Name Role Phone ROMEL BILLINGSLEY 1ST FLOOR OTHER [phone] Assessment Encounter Date Assessment Date Assessment LastModified by Organization Details LastModified Time 02/17/2019 02/17/2019 Meds upon admit to MM: albuterol prn, flovent 110 bid, metoprolol 100mg bid on , , sat, workman and daily q m,w,f, oxycodone 5mg q 4 prn, neprhocaps qd, renvela tid, vit D 1000 u daily, omperoazole 20/day, colace 100 bid, augmentin 500/125 daily until 02/19/19. (New: augmentin, oxycodone). [email or web address] Not available 02/17/2019 10:21:47 Plan of Treatment Reminders Order Date Submit Date Provider Last Modified By Organization Details Last Modified Time Details Appointments None record ed. Lab None record ed. Referral None record ed. Procedures None record ed. Surgeries None record ed. Imaging None record ed. Medication Orders None record ed. Patient TargetsNo targets recorded. Patient Instructions Encounter Date Encounter Id Patient Instructions Last Modified By Organization Details Last Modified Time 10/25/2018 [id number] d/c home with meds and services. [email or web address] Not available 10/25/2018 14:59:54 Reason for Referral None Reported. Problems Name Problem SNOMED Code Status Onset Date Resolution Date Notes Provider Name and Address Organization Details Recorded Time Essential hypertension 97818257 Active 2017 Sanjuana Barb [address] [facility], [address], [place], [address] , [facility] [employer] 8 12:33:10 End-stage renal disease 59880066 Active 2017 Sanjuaansofía Day [address] [place] [address], [address], [place], [address], [facility] 8 12:33:21 Atrial fibrillation 96454520 Active 2017 Sanjuana Day [address] [place] [address], [address], [place], [address], [facility] 8 12:33:35 Acute respiratory failure 12424726 Active 2017 Sanjuana Day [address] [place] [address], [address], [place], [address], [facility] 8 12:34:30 Asthma 022423930 Active 2017 Sanjuana Day [address] [place] [address], [address], [place], [address], [facility] 8 12:34:36 Gastroesophage al reflux disease 739169013 Active 2017 Sanjuana Day [address] [place] [address], [address], [place], [address], [facility] 8 12:40:38 Acute cholangitis 4084657 Active 2018 Adrienne thomaosn, [facility] 9 10:20:24 Sepsis 11358888 Active 2018 Adrienne thomason, [facility] 9 10:20:30 Problem Notes None recorded. Medical Equipment None Reported. Vitals Date Recorded Heart rate Respiratory rate Body temperature Systolic blood pressure Diastolic blood pressure Provider Name and Address Organization Details Last Updated DateTime 9 83 /min 18 /min 97.2 [degF] 116 mm[Hg] 58 mm[Hg] Adrienne Swanson [facility] 9 07:24:27 Date Recorded Systolic blood pressure Diastolic blood pressure Provider Name and Address Organization Details Last Updated DateTime 10/02/2018 138 mm[Hg] 70 mm[Hg] David Hurst MD [address] [facility], [address], [place], [address], [facility] 10/02/2018 11:24:10 Date Recorded Systolic blood pressure Diastolic blood pressure Provider Name and Address Organization Details Last Updated DateTime 02/18/2019 122 mm[Hg] 65 mm[Hg] David Hurst MD [address] [facility], [address], [place], [address], [facility] 02/18/2019 13:20:18 Social History Question Answer Notes LastModified by Organizat ion Details LastModified Time Tobacco Smoking Status Former Smoker quit 1996 Not Available [facility] 08/03/2020 03:13:20 Do You Have An Advance Directive? Yes Resuscitate, DNI, Transfer, Dialysis, No Art Nutr, Yes Art Hydration [id number] Information not available 08/03/2020 What Is Your Level Of Alcohol Consumption? None [id number] Information not available 08/03/2020 How Much Tobacco Do You Chew? None [id number] Information not available 08/03/2020 What Was The Date Of Your Most Recent Tobacco Screening? 02/18/2019 [id number] Information not available 08/03/2020 Sex: Unknown Functional Status None recorded. Mental Status None recorded. Family History Relationship Description Onset Age of this Age Resolved Age Notes LastModified by Organization Details LastModified Time Father No current problems or disability iroua Not available 02/17 07:23:49 Mother No [facility] problems [facility] Not [facility] 02/17 07:23:49 Notes:N/C Medical History No medical history recorded. Gynecological HistoryNo gynecological history recorded. Obstetrics History GPAL:G 0 P 0 0 0 0 Immunizations Vaccine Type Date Status Note Provider Nam e and Address Organization Details Recorded Time Influenza, split virus, quadrivalent, preservative 8 completed Grisel thomason, [facility] 09/07/2021 14:09:25 Pneumococcal conjugate PCV 13 8 completed Grisel thomason, [facility] 09/07/2021 14:09:37 Past Encounters Encounter ID Performer Location Encounter Start Date Encounter Closed Date Diagnosis/Indication Diagnosis SNOMED-CT Code Diagnosis ICD10 Code Diagnosis Note [id number] Sanjuana Day ROMEL KAYODE [address] [facility] [place] [address] 09/27/2018 12:11:44 10/23/2018 15:18:02 Asthma 639821017 J45.20 ventolin 2 puffs q 4 hrs prnbreathi ng appears moderately labored. Pt reports it is her baseline. Will increase flovent to 2 puffs BID. Monitor resp status. Acute resp iratory failure 04069040 J96.01 Added to hx from acute care. This was felt to be due to fluid overload from ESRD, resolved once dilayzed. Atrial fibrillation 4943 6004 I48.0 pt went into a. fib with rvr in acute care, with spontaneou s conversion to NSR. Echo showed EF 45-50%, she was started on metoprolol , titrated up to 50 mg BID at time of d/c. Cardiology consult does not recommend AC at this time. Will f/u with cardio.Con t metoprolol 50 mg BID End-stage renal disease 82375414 N18.6 Pt started HD in July 2018 with the hope that she would be able to discontinu e. 24 hour studies in acute care showed that she will need to continue HD on //SunP Tt currently has permacath to right chest, pt reports AV fistula pending for left arm.nephro caps 1 mg dailyrenve la 800 mg TID with meals. Essential hypertension 51909643 I10 norvasc d'c'd in acute care, changed to metoprolol Gastroesop hageal reflux disease 323739214 K21.9 added to hx in acute care. Per GI consult start omeprazole 20 mg daily. f/u pathology report from colonoscop y, 4 polyps biopsied. [id number] David Hurst MD [address] [address] 10/02/2018 11:18:56 10/23/2018 15:21:13 Systemic inflammatory response syndrome 120005753 R65.10 see HPIvanco and zosyn d/c'ed in hospitalno etiology discovered blood cultures negative Asthenia 85751379 R53.1 PT OT eval and treatmonit or fall risk Atrial fibrillation 4943 6004 I48.0 EF 45-50%,met oprolol 50 mg BIDCardiol ogy consult does not recommend AC at this timemonito r rate control Essential hypertension 30680342 I10 metoprolol 50 mg bid(norvas c d/c'ed during prior hospitaliz ationmonit or bp End-stage renal disease 97415354 N18.6 Pt started HD in July 2018nephro caps 1 mg dailyrenve la 800 mg TID with mealsmonit or renal function Gastroesop hageal reflux disease 705597363 K21.9 esophagiti s dx in placeomepr azole 20 mg qdmonitor for sx controlf/[place]n [id number] GAYLE FOX KAYODE [address] [place] [address] 10/18/2018 14:02:41 10/24/2018 09:19:50 Systemic inflammatory response syndrome 567315996 R65.10 resolved. Asthenia 39003696 R53.1 PT OT eval and treatmonit or fall risk Atrial fibrillation 4943 6004 I48.0 EF 45-50%,met oprolol 50 mg BIDCardiol ogy consult does not recommend AC at this timemonito r rate control End-stage renal disease 04188163 N18.6 Pt started HD in July 2018nephro caps 1 mg dailyrenve la 800 mg TID with mealsmonit or renal function Essential hypertension 04835806 I10 metoprolol 50 mg bid(norvas c d/c'ed during prior hospitaliz ationmonit or bp Gastroesop hageal reflux disease 100998093 K21.9 esophagiti s dx in placeomepr azole 20 mg qdmonitor [place] [id number] [address]LE [address] [place] [address] 10/25/2018 14:44:15 10/29/2018 10:48:23 Atrial fibrillation 76005928 I48.0 EF 45-50%,met oprolol 50 mg BIDCardiol ogy consult does not recommend ACmonitor rate control Systemic i nflammatory response syndrome 696835264 R65.10 resolved. Asthenia 97966385 R53.1 PT OT eval and treat-pt now at baseline and ready for d/cmonitor fall risk End-stage renal disease 01822251 N18.6 Pt started HD in July 2018nephro caps 1 mg dailyrenve la 800 mg TID with mealsmonit or renal function Essential hypertension 33264984 I10 metoprolol 50 mg bid(norvas c d/c'd during prior hospitaliz ationmonit or bp Gastroesop hageal reflux disease 897657446 K21.9 esophagiti s dx in placeomepr azole 20 mg qdmonitor for sx controlf/[place] [id number] GAYLE FOX [address] [place] [address] 02/17/2019 07:22:45 03/11/2019 13:07:22 Sepsis 09830356 A41.9 d/t cholangiti s. s/p lap el, and IV abx. continue augmentin until completed on 02/19. [facility] labs and vs. Acute cholangitis 319397 6 K83.01 s/p lap el, and IV abx. continue augmentin until completed on 02/19. [facility] labs and vs. End-stage renal disease 21246523 N18.6 Pt started HD in July 2018nephro caps 1 mg dailyrenve la 800 mg TID with mealsmonit or renal function. Foll by Dr. Barnes. Atrial fibrillation 4943 6004 I48.0 rate stable on metoprolol .not on AC currently. Asthma 712689540 J45.90 9 stable on albuterol, flovent Physical deconditioning 1626422367 9102 R68.89 PT/OT [id number] MD ROMEL Penaloza [address] [place] [address] 02/18/2019 13:10:09 03/11/2019 14:58:46 Acute cholangitis 5804743 K83.01 see HPIto completeau gmentin 500-125 mg qd through 02/19add probioticm onitor sxto f/u with PCP End-stage renal disease 84746217 N18.6 Pt started HD in July 2018nephro caps 1 mg dailyrenve la 800 mg TID with mealsmonit or renal function Essential hypertension 58646400 I10 metoprolol 100 mg q // and 100 mg bid on non HD daysmonito r bp Gastroesop hageal reflux disease 779078223 K21.9 omeprazole 20 mg qdmonitor for sx control Asthma 995935981 J45.30 ventolin 2 puffs q 4 prnflovent 110 2 puffs bidmonitor respirator y function Health Concerns Section Related Observation LastModified by Organization Detai ls LastModified Time None Recorded Concern Status LastModified by Organization Details LastModified Time None Recorded Advance Directives Directive Y: resuscitate, DNI, transfe r, dialysis, no art nutr, yes art hydration Payers Encounter Date Sequence Insurance Name Policy Number Policy Smiley Covered Member ID Smiley Member ID Guarantor Name 10/02/2018 1 [place] [employer] Simran E Birch [id number] Simran Birch 10/02/2018 2 [place] Simran Birch [id number] Simran Birch 10/18/2018 1 [place] [employer] Simran E Birch [id number] Simran Birch 10/18/2018 2 [place] Simran Birch [id number] Simran Birch 10/25/2018 1 [place] [employer] Simran E Birch [id number] Simran Birch 10/25/2018 2 [place] Simran Birch [id number] Simran Birch 02/17/2019 1 [place] [employer] Simran E Birch [id number] Simran Birch 02/17/2019 2 [place] Simran Birch [id number] Simran Birch 02/18/2019 1 [place] [employer] Simran E Birch [id number] Simran Birch 02/18/2019 2 [place] Simran Birch [id number] Simran Bir Notes Date Note Type Note Provider Name and Address Organization Details Recorded Time 10/02/2018 text/html Patient is a 72 yo female admit from hospital after presenting from HD clinic with increase in weakness and sob with significant anemia. In ED noted to have Hb=6.7 also febrile with temp 102.3 started on vanco and zosyn, dx with SIRS, blood cx and cxr negative and Ab d/nancy with no etiology discovered. currently being tx for vaginal candidiasis PMH significant forESRD on HDhtnanemia of chronic dxa fibesophagitis admit to facility for continued care and therapy David Hurst MD [address] [facility], [address], [place], [address], [facility] 10/02/2018 11:35:21 10/18/2018 text/html Patient is a 72 yo female admit from hospital after treatment for acute anemia (in setting of ESRD), SIRS. PMH significant forESRD on HDhtnanemia of chronic dxa fibesophagitis Adrienne thomason, [place] [facility] 10/18/2018 14:55:42 10/25/2018 text/html Patient is a 72 yo female admit from hospital after treatment for acute anemia (in setting of ESRD), SIRS. She did well here with rehab and has had stable respiratory status. Now at baseline and ready for d/c home today with services. PMH significant forESRD on HDhtnanemia of chronic dxa fibesophagitis Adrienne thomason, [place] [facility] 10/25/2018 15:00:15 02/17/2019 text/html This is a 73 y/o female admitted for rehab after hospitalization with cholecystitis and sepsis s/p lap el. She presented to [facility] with abdominal pain, pleuritic chest pain and was admitted. CT angio chest neg. Ct abd with enlarged CBD no stones seen. BC + for bacteria. Pt started on IV abx. Had ERCP done with duct clearance. Given sepsis and elevated LFTs, fever, pt had lap el (Dr. Coronado) done for suspicion of gall stones. No complications noted. Transitioned to po augmentin and now comes to [facility] for further care and rehab. PMH: asthma, anemia of chronic disease, a.fib with RVR, ESRD- on HD mwf since 07/2018. Adrienne thomason, [place] [facility] 02/17/2019 10:23:52 02/18/2019 text/html Patient is a 73 yo female admit from hospital after presenting RUQ abd pain, dx with sepsis secondary to acute cholangitis. Initially underwent ERCP with sphincterotomy then on 02/12 underwent lap el. Discharged on augmentin to complete 14 day course. PMH significant fora fibESRD on HDhtngerdasthma Patient admitted to SNF for continued care and therapy has progressed rapidly and now cleared for discharge with f/u in place. David Hurst MD [address] [place] [address], [address], [place], [address], [place] [facility] 02/18/2019 13:26:11 OBGyn Episode No OBEpisode recorded.
--- OUTSIDE RECORDS SUMMARY | 2025-02-05 12:09 | XMS_ITS | Encounter Summary ---
Author Organization [facility] Address [address] [facility] [address] [place] [address] Phone Care Team Providers Care Pressure Steamer Tender Name Role Phone Unavailable Primary Care Provider Unavailabl e Reason for Visit * Reason Comments Med Refill Encounter Details Date Type Department Care Team ([facility] st Contact Info) Description 12/02/2024 Refill [facility]. [address] [address] Andre Méndez MD [address] [address] Social History Tobacco Use Types Packs/Day Years Used Date Smoking Tobacco: Never Assessed Comments Unknown Sex and Gender Information Value Date Recorded Sex Assigned at Not on file Legal Sex Female 4:53 PM EST Gender Identity Not on file Sexual Orientation Not on file documented as of this encounter Plan of Treatment Not on file documented as of this encounter Procedures Procedure Name Priority Date/Time Associated Diagnosis Comments LIH () Routine 12/12/2024 3:00 AM EST KT/V NATURAL LOG, URR () Routine 12/12/2024 3:00 AM EST CALCIUM PHOSPHORUS PRODUCT, ADJUSTED () Routine 12/12/2024 3:00 AM EST HEPATITIS B SURFACE ANTIGEN W/REFL CONFIRM Routine 12/12/2024 3:00 AM EST TRANSFERRIN SATURATION Routine 3:00 AM EST CBC AND DIFFERENTIAL Routine 12/12/2024 3:00 AM EST ALT Routine 12/12/2024 3:00 AM EST AST Routine 12/12/2024 3:00 AM EST PROTEIN, TOTAL, SERUM Routine 12/12/2024 3:00 AM EST ALKALINE PHOSPHATASE Routine 12/12/2024 3:00 AM EST MAGNESIUM Routine 12/12/2024 3:00 AM EST LACTATE DEHYDROGENASE Routine 12/12/2024 3:00 AM EST GLUCOSE, RANDOM Routine 12/12/2024 3:00 AM EST FERRITIN Routine 12/12/2024 3:00 AM EST CREATININE, SERUM Routine 12/12/2024 3:0 0 AM EST BILIRUBIN, TOTAL Routine 12/12/2024 3:00 AM EST ELECTROLYTE PANEL Routine 12/12/2024 3:0 0 AM EST documented in this encounter Results * Hepatitis B Surface Ag w/Reflex Confirmation (12/12/2024 3:00 AM EST) Hep B Surface Antigen Negative Negative [facility] 12/12/2024 3:00 AM EST 12/13/2024 12:57 PM EST us Choco Barnes MD LAB BLOOD ORDERABLES Final Re sult [facility] [address] [place] [address] * (ABNORMAL) CBC and Differential (12/12/2024 3:00 AM EST) DIFFERENTIAL MANUAL, 2 Not Indicated [facility] White Blood Cells 5.0 4.0 - 10.0 K/uL [facility] RBC 3.57(L) 3.93 - 5.22 M/uL [facility] Hgb 11.4 11.2 - 15.7 g/dL [facility] Hemoglobin x 3 34.2 33.6 - 47.1 g/dL [facility] Hematocrit 34.0(L) 34.1 - 44.9 % [facility] MCV 95.2(H) 79.4 - 94.8 fL [facility] MCH 31.9 25.6 - 32.2 pg [facility] MCHC 33.5 32.2 - 35.5 g/dL [facility] Platelets 283 182 - 369 K/uL [facility] RDW 13.0 11.7 - 14.4 % [facility] Neutrophils Relative 52.5 34.0 - 71.1 % [facility] Lymphocytes Relative 35.7 19.3 - 51.7 % [facility] Monocytes 11.4 4.7 - 12.5 % [facility] Eosinophils Relative 0.0(L) 0.7 - 5.8 % [facility] Basophils Relative 0.2 0.1 - 1.2 % [facility] Immature Granulocytes 0.2 0.0 - 1.0 % [facility] 12/12/2024 3:00 AM EST 12/13/2024 1:31 PM EST Choco Barnes MD LAB BLOOD ORDERABLES Final Re sult Performing Organization Address [facility] Co de Phone Number [facility] [address] [place] [address] * (ABNORMAL) Ferritin (12/12/2024 3:00 AM EST) Pathologist [facility] Ferritin 1,018(H) 10 - 291 ng/mL [facility] 12/12/2024 3:00 AM EST 12/13/2024 12:57 PM EST Choco Barnes MD LAB BLOOD ORDERABLES Final Re sult Performing Organization Address [facility] Co de Phone Number [facility] [address] [place] [address] * (ABNORMAL) TSAT (12/12/2024 3:00 AM EST) Iron 85 50 - 170 ug/dL [facility] Transferrin 205(L) 250 - 380 mg/dL [facility] TIBC 287 211 - 406 ug/dL [facility] Iron Saturation (TSat) 30 22 - 52 % [facility] 12/12/2024 3:00 AM EST 12/13/2024 12:57 PM EST Choco Barnes MD LAB BLOOD ORDERABLES Final Re sult Performing Organization Address [facility] Phone Number [facility] [address] [place] [address] * Protein, total (12/12/2024 3:00 AM EST) Total Protein 7.0 6.4 - 8.9 g/dL [facility] 12/12/2024 3:00 AM EST 12/13/2024 12:57 PM EST Choco Barnes MD LAB BLOOD ORDERABLES Final Re sult Performing Organization Address [facility] de Phone Number [facility] [address] [place] [address] * (ABNORMAL) Magnesium (12/12/2024 3:00 AM EST) Magnesium 3.1(H) 1.9 - 2.7 mg/dL [facility] 12/12/2024 3:00 AM EST 12/13/2024 12:57 PM EST Choco Barnes MD LAB BLOOD ORDERABLES Final Re sult Performing Organization Address [facility] Phone Number [facility] [address] [place] [address] * (ABNORMAL) Kt/V Natural Log, URR (12/12/2024 3:00 AM EST) BUN 71(H) 7 - 25 mg/dL [facility] Treatment Time 198 min [facility] Pre-Weight, lb 109.1 kg [facility] Post-Weight, lb 106.7 kg [facility] Ultrafiltration Rate 7 <=13 mL/kg/hr [facility] Comment: Recommend achieving Ultrafiltration Rate (UFR) <=10 mL/kg/hr References: Shay NEGRON et al. Kidney Int. 2010; 79(2):250-257 BUN Post Dialysis 17 7 - 25 mg/dL [facility] UREA REDUCTION RATIO (%) 76 >=65 % [facility] Kt/V Natural Log 1.62 >=1.2 [facility] 12/12/2024 3:00 AM EST 12/13/2024 12:57 PM EST Choco Barnes MD LAB [id number] SOLICITED RESULTS Final Result Performing Organization Address [facility] de Phone Number [facility] [address] [place] [address] * (ABNORMAL) Electrolyte panel (12/12/2024 3:00 AM EST) Sodium 130(L) 136 - 145 mEq/L [facility] Potassium 4.8 3.4 - 5.0 mEq/L [facility] Chloride 95(L) 98 - 107 mEq/L [facility] Bicarbonate (CO2) 25 21 - 31 mEq/L [facility] Anion Gap 10 3 - 14 mEq/L [facility] 12/12/2024 3:00 AM EST 12/13/2024 12:57 PM EST Choco Barnes MD LAB BLOOD ORDERABLES Final Re sult Performing Organization Address [facility] de Phone Number [facility] [address] [place] [address] * LIH (12/12/2024 3:00 AM EST) Lipemia Normal Normal [facility] Icterus Normal Normal [facility] Hemolysis Normal Normal [facility] 12/12/2024 3:00 AM EST 12/13/2024 12:57 PM EST Choco Barnes MD LAB [id number] SOLICITED RESULTS Final Result Performing Organization Address [facility] de Phone Number [facility] [address] [place] [address] * Lactate dehydrogenase (12/12/2024 3:00 AM EST) LDH 172 120 - 246 U/L [facility] 12/12/2024 3:00 AM EST 12/13/2024 12:57 PM EST us Choco Barnes MD LAB BLOOD ORDERABLES Final Re sult Performing Organization Address [facility] Phone Number [facility] [address] [place] [address] * Glucose, random (12/12/2024 3:00 AM EST) Glucose 95 74 - 109 mg/dL [facility] 12/12/2024 3:00 AM EST 12/13/2024 12:57 PM EST Choco Barnes MD LAB BLOOD ORDERABLES Final Re sult Performing Organization Address [facility] Phone Number [facility] [address] [place] [address] * (ABNORMAL) Creatinine, serum (12/12/2024 3:00 AM EST) Creatinine 5.25(H) 0.55 - 1.02 mg/dL [facility] 12/12/2024 3:00 AM EST 12/13/2024 12:57 PM EST Choco Barnes MD LAB BLOOD ORDERABLES Final Re sult Performing Organization Address [facility] de Phone Number [facility] [address] [place] [address] * Bilirubin, total (12/12/2024 3:00 AM EST) Total Bilirubin 0.3 0.3 - 1.2 mg/dL [facility] 12/12/2024 3:00 AM EST 12/13/2024 12:57 PM EST us Choco Barnes MD LAB BLOOD ORDERABLES Final Re sult Performing Organization Address [facility] Co de Phone Number [facility] [address] [place] [address] * AST (12/12/2024 3:00 AM EST) AST (SGOT) 23 <34 U/L [facility] 12/12/2024 3:00 AM EST 12/13/2024 12:57 PM EST Choco Barnes MD LAB BLOOD ORDERABLES Final Re sult Performing Organization Address [facility] de Phone Number [facility] [address] [place] [address] * ALT (12/12/2024 3:00 AM EST) ALT (SGPT) 12 10 - 49 U/L [facility] 12/12/2024 3:00 AM EST 12/13/2024 12:57 PM EST Choco Barnes MD LAB BLOOD ORDERABLES Final Re sult Performing Organization Address [facility] de Phone Number [facility] [address] [place] [address] * (ABNORMAL) Alkaline phosphatase (12/12/2024 3:00 AM EST) Alkaline Phosphatase 145(H) 46 - 116 U/L [facility] 12/12/2024 3:00 AM EST 12/13/2024 12:57 PM EST Choco Barnes MD LAB BLOOD ORDERABLES Final Re sult Performing Organization Address [facility] de Phone Number [facility] [address] [place] [address] * (ABNORMAL) Calcium Phosphorus Product, Adjusted (12/12/2024 3:00 AM EST) Albumin 4.6 3.6 - 5.4 g/dL [facility] Calcium 9.6 8.6 - 10.3 mg/dL [facility] Phosphorus, Serum 5.5(H) 2.5 - 5.0 mg/dL [facility] Ca*PO4 52.8 <55.0 mg2/dL2 [facility] Calcium, Adjusted Total 9.6 8.6 - 10.3 mg/dL [facility] CA*PO4 CORRCTD 52.8 <55.0 mg2/dL2 [facility] 12/12/2024 3:00 AM EST 12/13/2024 12:57 PM EST us Choco Barnes MD LAB [id number] SOLICITED RESULTS Final Result [facility] [address] [place] [address] documented in this encounter Visit Diagnoses Not on filedocumented in this encounter
--- OUTSIDE RECORDS SUMMARY | 2025-02-05 12:09 | XMS_ITS | Encounter Summary ---
Author Organization [facility] Address [address] [address] Phone Care Team Providers Care Diorama Model Maker Name Role Phone Unavailable Primary Care Provider Unavailabl e Reason for Visit * Reason Comments Med Refill Encounter Details Date Type Department Care Team ([facility] st Contact Info) Description 12/23/2024 Refill [facility] [address] [address] Andre Méndez MD [address] [address] Social History Tobacco Use Types [...]
--- OUTSIDE RECORDS SUMMARY | 2025-02-05 12:09 | XMS_ITS | Clinical Summary ---
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 Rinse mouth with water after use to reduce aftertaste and incidence of candidiasis. Do not swallow.. 10.6 g 2 03/20/20 22 Active metOLazone 5 MG tabletIndicati ons:Hypertensi ve disorder,Anemi a of chronic disease TAKE 1 TABLET BY MOUTH ON SUNDAY, SUNDAY, AND SUNDAY. 12 tablet 04/03/20 23 Active furosemide (LASIX) 80 MG tabletIndicati ons:Hypertensi ve disorder,Anemi a of chronic disease TAKE 2 TABLETS BY MOUTH DAILY EXCEPT ON SUNDAY, SUNDAY & SUNDAY NO DOSE 32 tablet 04/03/20 23 Active Renvela 800 MG tablet Take 1 tablet (800 mg total) by mouth in the morning and 1 tablet (800 mg total) at noon and 1 tablet (800 mg total) in the evening. Take with meals. 140 tablet 11/14/19 24 Active gabapentin (NEURONTIN) 100 MG capsule TAKE 1 CAPSULE BY MOUTH THREE TIMES DAILY. 90 capsule 01/21/20 25 Active amitriptyline (ELAVIL) 25 MG tablet TAKE 1 TABLET BY MOUTH ONCE DAILY 30 tablet 01/21/20 25 Active metOLazone (ZAROXOLYN) 10 MG tablet TAKE 1 TABLET BY MOUTH ON SUNDAY, SUNDAY, SUNDAY & SUNDAY, FOUR DAYS A WEEK ON NON-DIALYSIS DAYS 16 tablet 01/22/20 25 Active metoprolol tartrate 25 MG tabletIndicati ons:Hypertensi ve disorder,Anemi a of chronic disease TAKE (1/2) TABLET BY MOUTH TWICE A DAY 28 tablet 01/22/20 25 Active metOLazone (ZAROXOLYN) 10 MG tablet Take 0.5 tablets (5 mg total) by mouth 1 (one) time each day 16 tablet 01/08/20 24 025 Discontinued metoprolol tartrate 25 MG tabletIndicati ons:Hypertensi ve disorder,Anemi a of chronic disease TAKE (1/2) TABLET BY MOUTH TWICE A DAY 28 tablet 12/24/19 25 025 Discontinued gabapentin (NEURONTIN) 100 MG capsule TAKE 1 CAPSULE BY MOUTH THREE TIMES DAILY. 90 capsule 01/07/20 25 025 Discontinued amitriptyline (ELAVIL) 25 MG tablet TAKE 1 TABLET BY MOUTH ONCE DAILY 30 tablet 01/07/20 25 025 Discontinued Active Problems Problem Noted Date Diagnosed Date Hysterectomy 02/06/2020 Asthma 02/06/2020 Appendectomy 02/06/2020 Hypertensive disorder 10/16/2018 End stage renal failure on dialysis 10/16/2018 Esophagitis 09/20/2018 Atrial fibrillation 09/20/2018 Anemia of chronic disease 09/20/2018 Encounters Date Type Department Care Team Description 02/02/2025 Treatment [facility] [address] [place] [phone] Choco Barnes MD End stage renal disease; Dependence on renal dialysis 01/23/2025 Treatment [facility] [place] [id number] [facility] [address] [place] [phone] Choco Barnes MD End stage renal disease; Dependence on renal dialysis 01/19/2025 Refill [facility] [address] [place] [phone] Choco Barnse MD Hypertensive disorder; Anemia of chronic disease 01/19/2025 Refill [facility] [place] [id number] [facility] [address] [place] [phone] Andre Méndez MD 01/16/2025 Treatment [facility] [address] [phone] Choco Barnes MD End stage renal disease; Dependence on renal dialysis 01/09/2025 Treatment [facility] [address] [phone] Choco Barnes MD End stage renal disease; Dependence on renal dialysis 01/07/2025 Treatment [facility] [address] [phone] Choco Barnes MD End stage renal disease; Dependence on renal dialysis 01/06/2025 Refill [facility] [address] [phone] Andre Méndez MD 12/30/2024 Refill [facility] [address] [phone] Andre Méndez MD 12/29/2024 Treatment [facility] [address] [phone] Choco Barnes MD End stage renal disease; Dependence on renal dialysis 12/26/2024 Treatment [facility] [address] [phone] Choco Barnes MD End stage renal disease; Dependence on renal dialysis 12/23/2024 Refill [facility] [address] [phone] Choco Barnes MD Hypertensive disorder; Anemia of chronic disease 12/23/2024 Refill [facility] [address] [phone] Andre Méndez MD 12/22/2024 Treatment [facility] [address] [phone] Choco Barnes MD End stage renal disease; Dependence on renal dialysis 12/08/2024 Treatment [facility] [address] [phone] Choco Barnes MD End stage renal disease; Dependence on renal dialysis 12/02/2024 Refill [facility] [address] [phone] Andre Méndez MD 11/19/2024 Treatment [facility] [address] [phone] Choco Barnes MD 11/17/2024 Treatment [facility] [address] [phone] Choco Barnes MD 11/10/2024 Treatment [facility] [address] [phone] Choco Barnes MD from Last 3 Months Social History Tobacco Use Types Packs/Day Years Used Date Smoking Tobacco: Never Assessed Comments Unknown Sex and Gender Information Value Date Recorded Sex Assigned at Not on file Legal Sex Female 4:53 PM EST Gender Identity Not on file Sexual Orientation Not on file Plan of Treatment Health Maintenance Due Date Last Done Comments Hepatitis B Vaccine (1 of 5 - Risk Dialysis 4-dose series) 1965 Pneumococcal Vaccine: 50+ Years (2 of 2 - PPSV23) 04/0803/08/2018 Influenza Vaccine (Season Ended) 2025 06/08/20 18 Pneumococcal Vaccine: Peds ( 0 to 5 Years) and At-Risk Patients (6 to 49 Years) Discontinued 03/08/2018 Procedures Procedure Name Priority Date/Time Associated Diagnosis Comments HEMOGLOBIN Routine 01/23/2025 3:00 AM EDT HEPATITIS B SURFACE ANTIGEN W/REFL CONFIRM Routine 01/07/2025 3:00 AM EDT TRANSFERRIN SATURATION Routine 3:00 AM EDT PROTEIN, TOTAL, SERUM Routine 01/07/2025 3:00 AM EDT MAGNESIUM Routine 01/07/2025 3:00 AM EDT KT/V NATURAL LOG, URR (HC) Routine 01/07/2025 3:00 AM EDT ELECTROLYTE PANEL Routine 01/07/2025 3:0 0 AM EDT LIH (HC) Routine 01/07/2025 3:00 AM EDT LIPID PANEL Routine 01/07/2025 3:00 AM EDT GLUCOSE, RANDOM Routine 01/07/2025 3:00 AM EDT LACTATE DEHYDROGENASE Routine 01/07/2025 3:00 AM EDT BILIRUBIN, TOTAL Routine 01/07/2025 3:00 AM EDT CREATININE, SERUM Routine 01/07/2025 3:0 0 AM EDT ALT Routine 01/07/2025 3:00 AM EDT AST Routine 01/07/2025 3:00 AM EDT CALCIUM PHOSPHORUS PRODUCT, ADJUSTED (HC) Routine 01/07/2025 3:00 AM EDT ALKALINE PHOSPHATASE Routine 01/07/2025 3:00 AM EDT FERRITIN Routine 01/07/2025 3:00 AM EDT CBC AND DIFFERENTIAL Routine 01/07/2025 3:00 AM EDT PTH, INTACT Routine 01/07/2025 3:00 AM EDT HEMOGLOBIN Routine 12/26/2024 3:00 AM EDT COLLECTION DATE (HC) Routine 12/26/2024 3:00 AM EDT HEPATITIS B SURFACE ANTIGEN W/REFL CONFIRM Routine 12/12/2024 3:00 AM EST CBC AND DIFFERENTIAL Routine 12/12/2024 3:00 AM EST FERRITIN Routine 12/12/2024 3:00 AM EST TRANSFERRIN SATURATION Routine 3:00 AM EST PROTEIN, TOTAL, SERUM Routine 12/12/2024 3:00 AM EST MAGNESIUM Routine 12/12/2024 3:00 AM EST KT/V NATURAL LOG, URR (HC) Routine 12/12/2024 3:00 AM EST ELECTROLYTE PANEL Routine 12/12/2024 3:0 0 AM EST LIH (HC) Routine 12/12/2024 3:00 AM EST LACTATE DEHYDROGENASE Routine 12/12/2024 3:00 AM EST GLUCOSE, RANDOM Routine 12/12/2024 3:00 AM EST CREATININE, SERUM Routine 12/12/2024 3:0 0 AM EST BILIRUBIN, TOTAL Routine 12/12/2024 3:00 AM EST AST Routine 12/12/2024 3:00 AM EST ALT Routine 12/12/2024 3:00 AM EST ALKALINE PHOSPHATASE Routine 12/12/2024 3:00 AM EST CALCIUM PHOSPHORUS PRODUCT, ADJUSTED (HC) Routine 12/12/2024 3:00 AM EST HEMOGLOBIN Routine 11/28/2024 3:00 AM EST from Last 3 Months Results * Hemoglobin (01/23/2025 3:00 AM EDT) Only the most recent of3 resultswithin the time period is included. Hgb 11.7 11.2 - 15.7 g/dL [facility] Hemoglobin x 3 35.1 33.6 - 47.1 g/dL [facility] 01/23/2025 3:00 AM EDT 01/24/2025 1:22 PM EDT Choco Barnes MD LAB BLOOD ORDERABLES Final Re sult Performing Organization Address City/[facility]/ZIP Co de Phone Number [facility]PS [facility] [address] [place] [address] * LIH (01/07/2025 3:00 AM EDT) Only the most recent of2 resultswithin the time period is included. Pathologist [facility] Lipemia Normal Normal [facility] Icterus Normal Normal [facility] Hemolysis Normal Normal [facility] 01/07/2025 3:00 AM EDT 01/09/2025 5:18 PM EDT Choco Barnes MD LAB [id number] SOLICITED RESULTS Final Result Performing Organization Address City/[facility]/ZIP Co de Phone Number [facility] [address] [place] [address] * (ABNORMAL) Kt/V Natural Log, URR (01/07/2025 3:00 AM EDT) Only the most recent of2 resultswithin the time period is included. BUN 68(H) 7 - 25 mg/dL [facility] Treatment Time 199 min [facility] Pre-Weight, lb 109.1 kg [facility] Post-Weight, lb 106.9 kg [facility] Ultrafiltration Rate 6 <=13 mL/kg/hr [facility] Comment: Recommend achieving Ultrafiltration Rate (UFR) <=10 mL/kg/hr References: Shay NEGRON et al. Kidney Int. 2010; 79(2):250-257 BUN Post Dialysis 16 7 - 25 mg/dL [facility] UREA REDUCTION RATIO (%) 76 >=65 % [facility] Kt/V Natural Log 1.63 >=1.2 [facility] 01/07/2025 3:00 AM EDT 01/09/2025 4:54 PM EDT Choco Barnes MD LAB [id number] SOLICITED RESULTS Final Result [facility] [address] [place] [address] * (ABNORMAL) Calcium Phosphorus Product, Adjusted (01/07/2025 3:00 AM EDT) Only the most recent of2 resultswithin the time period is included. Albumin 4.4 3.6 - 5.4 g/dL [facility] Calcium 9.6 8.6 - 10.3 mg/dL [facility] Phosphorus, Serum 5.5(H) 2.5 - 5.0 mg/dL [facility] Ca*PO4 52.8 <55.0 mg2/dL2 [facility] Calcium, Adjusted Total 9.6 8.6 - 10.3 mg/dL [facility] CA*PO4 CORRCTD 52.8 <55.0 mg2/dL2 [facility] 01/07/2025 3:00 AM EDT 01/09/2025 5:18 PM EDT Choco Barnes MD LAB [id number] SOLICITED RESULTS Final Result [facility] [address] [place] [address] * Hepatitis B Surface Ag w/Reflex Confirmation (01/07/2025 3:00 AM EDT) Only the most recent of2 resultswithin the time period is included. Hep B Surface Antigen Negative Negative [facility] 01/07/2025 3:00 AM EDT 01/09/2025 5:18 PM EDT Choco Barnes MD LAB BLOOD ORDERABLES Final Re sult Performing Organization Address [facility] de Phone Number [facility] [address] [place] [address] * (ABNORMAL) TSAT (01/07/2025 3:00 AM EDT) Only the most recent of2 resultswithin the time period is included. [facility] Iron 99 50 - 170 ug/dL [facility] Transferrin 201(L) 250 - 380 mg/dL [facility] TIBC 281 211 - 406 ug/dL [facility] Iron Saturation (TSat) 35 22 - 52 % [facility] 01/07/2025 3:00 AM EDT 01/09/2025 5:18 PM EDT Choco Barnes MD LAB BLOOD ORDERABLES Final Re sult Performing Organization Address [facility] de Phone Number [facility] [address] [place] [address] * (ABNORMAL) CBC and Differential (01/07/2025 3:00 AM EDT) Only the most recent of2 resultswithin the time period is included. [facility] DIFFERENTIAL MANUAL, 2 Not Indicated [facility] White Blood Cells 5.2 4.0 - 10.0 K/uL [facility] RBC 3.61(L) 3.93 - 5.22 M/uL [facility] Hgb 11.5 11.2 - 15.7 g/dL [facility] Hemoglobin x 3 34.5 33.6 - 47.1 g/dL [facility] Hematocrit 35.2 34.1 - 44.9 % [facility] MCV 97.5(H) 79.4 - 94.8 fL [facility] MCH 31.9 25.6 - 32.2 pg [facility] MCHC 32.7 32.2 - 35.5 g/dL [facility] Platelets 327 182 - 369 K/uL [facility] RDW 13.5 11.7 - 14.4 % [facility] Neutrophils Relative 52.5 34.0 - 71.1 % [facility] Lymphocytes Relative 35.0 19.3 - 51.7 % [facility] Monocytes 11.7 4.7 - 12.5 % [facility] Eosinophils Relative 0.0(L) 0.7 - 5.8 % [facility] Basophils Relative 0.2 0.1 - 1.2 % [facility] Immature Granulocytes 0.6 0.0 - 1.0 % [facility] 01/07/2025 3:00 AM EDT 01/09/2025 5:18 PM EDT Choco Barnes MD LAB BLOOD ORDERABLES Final Re sult Performing Organization Address [facility] Co de Phone Number [facility] [address] [place] [address] * ALT (01/07/2025 3:00 AM EDT) Only the most recent of2 resultswithin the time period is included. ALT (SGPT) 13 10 - 49 U/L [facility] 01/07/2025 3:00 AM EDT 01/09/2025 5:18 PM EDT Choco Barnes MD LAB BLOOD ORDERABLES Final Re sult Performing Organization Address [facility] de Phone Number [facility] [address] [place] [address] * AST (01/07/2025 3:00 AM EDT) Only the most recent of2 resultswithin the time period is included. AST (SGOT) 23 <34 U/L [facility] 01/07/2025 3:00 AM EDT 01/09/2025 5:18 PM EDT us Choco Barnes MD LAB BLOOD ORDERABLES Final Re sult Performing Organization Address [facility] de Phone Number [facility] [address] [place] [address] * Protein, total (01/07/2025 3:00 AM EDT) Only the most recent of2 resultswithin the time period is included. Total Protein 6.9 6.4 - 8.9 g/dL [facility] 01/07/2025 3:00 AM EDT 01/09/2025 5:18 PM EDT Choco Barnes MD LAB BLOOD ORDERABLES Final Re sult Performing Organization Address City/[facility] Co de Phone Number [facility] [address] [place] [address] * (ABNORMAL) Alkaline phosphatase (01/07/2025 3:00 AM EDT) Only the most recent of2 resultswithin the time period is included. Alkaline Phosphatase 130(H) 46 - 116 U/L [facility] 01/07/2025 3:00 AM EDT 01/09/2025 5:18 PM EDT Choco Barnes MD LAB BLOOD ORDERABLES Final Re sult Performing Organization Address [facility] de Phone Number [facility] [address] [place] [address] * PTH, Intact (01/07/2025 3:00 AM EDT) PTH, Intact 431 160 - 721 pg/mL [facility] Comment: Suggested (KDIGO) ESRD maintenance range is two to nine times the upper normal limit (80.1 pg/mL) for the laboratory. 01/07/2025 3:00 AM EDT 01/09/2025 5:18 PM EDT us Choco Barnes MD LAB BLOOD ORDERABLES Final Re sult Performing Organization Address [facility] Co de Phone Number [facility] [address] [place] [address] * Magnesium (01/07/2025 3:00 AM EDT) Only the most recent of2 resultswithin the time period is included. Magnesium 2.7 1.9 - 2.7 mg/dL [facility] 01/07/2025 3:00 AM EDT 01/09/2025 5:18 PM EDT Choco Barnes MD LAB BLOOD ORDERABLES Final Re sult Performing Organization Address [facility] de Phone Number [facility] [address] [place] [address] * (ABNORMAL) Lactate dehydrogenase (01/07/2025 3:00 AM EDT) Only the most recent of2 resultswithin the time period is included. LDH 270(H) 120 - 246 U/L [facility] 01/07/2025 3:00 AM EDT 01/09/2025 5:18 PM EDT Choco Barnes MD LAB BLOOD ORDERABLES Final Re sult Performing Organization Address [facility] de Phone Number [facility] [address] [place] [address] * Glucose, random (01/07/2025 3:00 AM EDT) Only the most recent of2 resultswithin the time period is included. Glucose 80 74 - 109 mg/dL [facility] 01/07/2025 3:00 AM EDT 01/09/2025 5:18 PM EDT Chooc Barnes MD LAB BLOOD ORDERABLES Final Re sult Performing Organization Address [facility] de Phone Number [facility] [address] [place] [address] * (ABNORMAL) Ferritin (01/07/2025 3:00 AM EDT) Only the most recent of2 resultswithin the time period is included. Ferritin 666(H) 10 - 291 ng/mL [facility] 01/07/2025 3:00 AM EDT 01/09/2025 5:18 PM EDT Choco Barnes MD LAB BLOOD ORDERABLES Final Re sult Performing Organization Address [facility] de Phone Number [facility] [address] [place] [address] * (ABNORMAL) Creatinine, serum (01/07/2025 3:00 AM EDT) Only the most recent of2 resultswithin the time period is included. Creatinine 5.46(H) 0.55 - 1.02 mg/dL [facility] 01/07/2025 3:00 AM EDT 01/09/2025 5:18 PM EDT Choco Barnes MD LAB BLOOD ORDERABLES Final Re sult Performing Organization Address [facility] de Phone Number [facility] [address] [place] [address] * (ABNORMAL) Bilirubin, total (01/07/2025 3:00 AM EDT) Only the most recent of2 resultswithin the time period is included. Total Bilirubin 0.2(L) 0.3 - 1.2 mg/dL [facility] 01/07/2025 3:00 AM EDT 01/09/2025 5:18 PM EDT Choco Barnes MD LAB BLOOD ORDERABLES Final Re sult Performing Organization Address [facility] de Phone Number [facility] [address] [place] [address] * (ABNORMAL) Lipid panel (01/07/2025 3:00 AM EDT) Cholesterol 207(H) <200 mg/dL [facility] Comment: Optimal: ?<200 Borderline: ? 200-239 Higher Risk: ?>239 Triglycerides 152(A) <150 mg/dL [facility] Comment: Optimal: ?<150 Borderline High: ??150-199 High: ? 200-499 Very High: ?>499 HDL 65 >59 mg/dL [facility] Comment: Desirable: ?>59 Higher Risk: ?<40 LDL-Calc 112(A) <100 mg/dL [facility] Comment: Optimal: ?<100 Above Optimal: ?100-129 Borderline High: ??130-159 High: ? 160-189 Very High: ?>189 VLDL Cholesterol Andreas 30(A) <30 mg/dL [facility] Comment: Optimal: ?<30 Borderline High: ??30-39 High: ? 40-99 Very High: ?>99 Chol/HDL Ratio 3.2 <3.3 [facility] Comment: Optimal: ?<3.3 Higher Risk: ?>6.2 01/07/2025 3:00 AM EDT 01/09/2025 5:18 PM EDT Choco Barnes MD LAB BLOOD ORDERABLES Final Re sult [facility] [address] [place] [address] * (ABNORMAL) Electrolyte panel (01/07/2025 3:00 AM EDT) Only the most recent of2 resultswithin the time period is included. Sodium 133(L) 136 - 145 mEq/L [facility] Potassium 4.9 3.4 - 5.0 mEq/L [facility] Chloride 96(L) 98 - 107 mEq/L [facility] Bicarbonate (CO2) 25 21 - 31 mEq/L [facility] Anion Gap 12 3 - 14 mEq/L [facility] 01/07/2025 3:00 AM EDT 01/09/2025 5:18 PM EDT us Choco Barnes MD LAB BLOOD ORDERABLES Final Re sult Performing Organization Address City/[facility]/ZIP Co de Phone Number [facility] [address] [place] [address] * Collection Date (12/26/2024 3:00 AM EDT) Collection Date See Comment [facility] Comment: Patient sample received may exceed specimen stability, based on the collection date electronically provided. ??When reviewing patient results, verify collection information and consider specimen stability before acting on any critical or panic results. 12/26/2024 3:00 AM EDT Choco Barnes MD LAB [id number] SOLICITED RESULTS Final Result Performing Organization Address City/[facility] Co de Phone Number [facility] [address] [place] [address] from Last 3 Months Insurance Medicare Medicaid [place]
== END 2025-02-05 11:03 | disposition home or self-care (01) ==
PROVIDERS: Visit Provider Surgery Vascular Surgery
DX: N18.6 End stage renal disease (principal); Z99.2 Dependence on renal dialysis
CPT/HCPCS: 99214

== ENCOUNTER → 2025-02-05 10:34 | Outpatient (BNVA) | payer MEDICARE, MEDICAID, SELFPAY | PROVIDERS: Visit Provider Surgery Vascular Surgery | DX: N18.6 End stage renal disease (principal); Z99.2 Dependence on renal dialysis | CPT/HCPCS: 99212 ==

== ENCOUNTER → 2025-02-11 07:42 | Outpatient (BNV) | payer MEDICARE, MEDICAID, SELFPAY | PROVIDERS: Visit Provider Surgery Vascular Surgery | DX: T82.858A Stenosis of other vascular prosthetic devices, implants and grafts, initial encounter (principal); N18.6 End stage renal disease | CPT/HCPCS: 36902; 36907; 99152 ==

== ENCOUNTER → 2025-02-11 07:42 | Day surgery (SDC) | payer MEDICARE, MEDICAID, SELFPAY ==
[2025-02-11] VITALS (19 sets, daily range): BP systolic 121–143; BP diastolic 43–88; PULSE 81–89; RESP 12–16; TEMP 36.1–36.9; O2SAT 98–100; BMI 39.6
[2025-02-11 08:05] LABS: MANUAL DIFF FLAG NO
[2025-02-11 08:08] LABS: Basophils Percent Auto 0.2 % (0-2); Hemoglobin 12.3 g/dl (12.0-16.0); Imm Gran Abs Auto 0.01 X10*3/uL (0.00-0.03); Imm Gran Pct Auto 0.2 % (0.0-0.4); Lymphocytes Absolute Auto 1.8 X10*3/uL (1.2-4.9); Lymphocytes Percent Auto 39.3 % (20-40); Mean Corpuscular HGB Conc 34.2 g/dl (31.0-35.0); Mean Corpuscular Hemoglobin 31.7 pg (27.0-33.0); Mean Corpuscular Volume 92.8 fL (80.0-98.0); Mean Platelet Volume 8.6 fL (9.4-12.3); Monocytes Absolute Auto 0.6 X10*3/uL (0.1-1.2); Monocytes Percent Auto 13.7 % (2-11); Neutrophils Absolute Auto 2.1 x10*3/uL (2.0-8.3); Neutrophils Percent Auto 46.6 % (45-73); Platelet Count 263 X10*3/uL (160-400); Red Blood Count 3.88 X10*6/uL (4.20-5.50); Red Cell Distribution Width 13.6 % (11.0-16.0); White Blood Count 4.6 X10*3/uL (4.8-10.8)
[2025-02-11] MEDS: 0.9 % Sodium Chloride 1,000 ML 100 ML IVCONT (08:25)
[2025-02-11 08:53] LABS: Anion Gap 21 (12-20); Blood Urea Nitrogen 70 mg/dL (9-16); Calcium 9.7 mg/dL (8.4-10.2); Carbon Dioxide 30 mmol/L (22-29); Chloride 94 mmol/L (96-108); Estimated Glomerular Filt Rate 8; Glucose Random 90 mg/dL (60-115); Potassium 3.8 mmol/L (3.3-5.1); Sodium 141 mmol/L (135-145)
--- NOTE | 2025-02-11 09:00 | PC.NURSE ---
Dr. Serrano made aware of critical Creatinine of 5.15. Patient goes to dialysis MWF. Patient to skip today (Sunday) and proceed with normal schedule Sunday. Dr. Serrano aware. No new orders at this time.
[2025-02-11] MEDS: fentaNYL citrate/PF 100 MCG/2 ML VIAL 25 MCG IVPUSH ×3 (09:58→10:35)
[2025-02-11] MEDS: Midazolam HCl 2 MG/2 ML VIAL 0.5 MG IVPUSH ×3 (09:58→10:36)
--- NOTE | 2025-02-11 11:09 | P.OP_ITS ---
Operative Note Operative Note Date of Service: 02/11/25 Narrative: Angiogram report from [facility] Preoperative diagnosis: End-stage renal disease 2. Excessive bleeding from fistula Postoperative diagnosis: Same Procedure: 1. Left upper extremity fistula puncture 2. Outflow venous tract angioplasty Surgeon:Danilo Serrano M.D., FACS, RPVI Reservations Agent:None Anesthesia: Local with moderate conscious sedation. Total intraservice moderate sedation time was 50 minutes. I monitored the patient's level of consciousness and physiologic status continuously throughout the procedure. Specimens:none Drains:none Estimated blood loss: Less than 10 ml Radiation Dose: 205.4 mGy Implant: iloho Impact DCB 7 x 4 Indications: 79-year-old female with longstanding history of left upper extremity fistula used for dialysis for end-stage renal disease. During dialy sis noticed excessive bleeding periods. Now presents for fistulogram. The patient has signed the informed consent after reviewing risks, complications, benefits, and alternatives previously discussed with the patient. The patient was given the opportunity to ask any additional questions or voice any concerns. All questions were answered to the patient's satisfaction. Procedure in detail: Patient was brought to the angiography suite prior to which a time-out was called for patient identification and site verification. Left upper extremity was prepped and draped in standard surgical fashion. Direct puncture was made at the most distal part of the fistula near the arteriovenous anastomosis. We inserted a precision 5 [place] sheath. We performed a fistulogram through that sheath. Noticed that there was a curly twist in the fistula in addition at the outflow tract at the junction the subclavian vein to the central veins there was a high-grade stenosis. At this time we exchanged out for a long 5 [place] sheath and we were eventually able to place a Glidewire advantage into the more central veins. Once we were able to do this we exchanged out for a long 6 [place] destination sheath. Through this we plasty the outflow venous tract at the junction with a 7 x 40 regular balloon. We subsequently followed this up with a drug coated balloon. This was brought into position in under 3 minutes and insufflated for a total of 3 minutes in duration. Completion fistulogram demonstrated excellent result catheter wire sheath were removed. Pursestring nylon suture was placed at the puncture site for hemostasis. Patient tolerated the procedure well and returned to recovery with stable vitals. Interpretation of films: 1. Fistulogram demonstrated appropriate size vein. There was a curly twist in the central portion in the mid arm. And at the junction of the subclavian to the more central veins there was a high-grade stenosis. 2. Completion fistulogram demonstrated resolution of the high-grade stenosis. Conclusion: 1. Successful plasty of fistulogram. 2. Anticoagulation status: No change This note is constructed using voice recognition software. While every effort has been made to ensure accuracy, party plan sales unit advisor errors may have been included. Thank you for allowing me to participate in the care of your patient. Yours sincerely, Danilo Serrano MD, FACS, R.P.V.I.
== END | disposition home or self-care (01) ==
PROVIDERS: Visit Provider Surgery Vascular Surgery
DX: T82.858A Stenosis of other vascular prosthetic devices, implants and grafts, initial encounter (principal); T82.838A Hemorrhage due to vascular prosthetic devices, implants and grafts, initial encounter; Y83.2 Surgical operation with anastomosis, bypass or graft as the cause of abnormal reaction of the patient, or of later complication, without mention of misadventure at the time of the procedure; Y92.538 Other ambulatory health services establishments as the place of occurrence of the external cause; I12.0 Hypertensive chronic kidney disease with stage 5 chronic kidney disease or end stage renal disease; N18.6 End stage renal disease; Z99.2 Dependence on renal dialysis
CPT/HCPCS: 36415; 36902; 80048; 85025; 99152; 99153; C1725; C1769; C1887; C1894; C2623; J1644; J2250; J3010; Q9967

== ENCOUNTER 2025-03-20 16:10 | Outpatient (REF) | payer MEDICARE, MEDICAID, SELFPAY ==
[2025-03-20 16:57] LABS: Appearance Urine Clear; Color Urine Yellow; Glucose Urine UA Negative (Negative); Leukocyte Esterase Urine Negative (Negative); Nitrite Urine Negative (Negative); UMIC TRIGGER UA YES; Urine Blood Trace (Negative); Urine Ketones Negative (Negative); Urine Protein Trace mg/dL (Neg-Trace)
[2025-03-20 16:59] LABS: Bacteria Urine None Seen (None Seen); Hyaline Casts Urine 0-2 /LPF (0-2); WBC Urine 0-5 /HPF (0-5)
[2025-03-20 17:09] LABS: Hemoglobin 10.3 g/dl (12.0-16.0); PLT CLUMP 1; Red Cell Distribution Width 13.4 % (11.0-16.0); SCAN SMEAR FLAG 1
[2025-03-20 17:10] LABS: Basophils Percent Auto 0.2 % (0-2); Hematocrit 29.6 % (37.0-47.0); Imm Gran Abs Auto 0.02 X10*3/uL (0.00-0.03); Imm Gran Pct Auto 0.5 % (0.0-0.4); Lymphocytes Absolute Auto 1.4 X10*3/uL (1.2-4.9); Lymphocytes Percent Auto 33.7 % (20-40); MANUAL DIFF FLAG SCAN; Mean Corpuscular HGB Conc 34.8 g/dl (31.0-35.0); Mean Corpuscular Hemoglobin 31.9 pg (27.0-33.0); Mean Corpuscular Volume 91.6 fL (80.0-98.0); Mean Platelet Volume 9.4 fL (9.4-12.3); Monocytes Absolute Auto 0.5 X10*3/uL (0.1-1.2); Monocytes Percent Auto 13.1 % (2-11); Neutrophils Absolute Auto 2.2 x10*3/uL (2.0-8.3); Neutrophils Percent Auto 52.5 % (45-73); Red Blood Count 3.23 X10*6/uL (4.20-5.50)
[2025-03-20 17:21] LABS: Parathyroid Hormone Intact 715.6 pg/mL (8.7-77.1)
[2025-03-20 17:22] LABS: White Blood Count 4.1 X10*3/uL (4.8-10.8)
[2025-03-20 17:35] LABS: Albumin Level 4.1 g/dL (3.5-5.0); Anion Gap 19 (12-20); Blood Urea Nitrogen 114 mg/dL (9-16); Carbon Dioxide 21 mmol/L (22-29); Chloride 92 mmol/L (96-108); Estimated Glomerular Filt Rate 6; Iron 86 mcg/dL (30-160); Magnesium 3.6 mg/dL (1.6-2.6); Percent Iron Saturation 35 % (15-50); Potassium 3.8 mmol/L (3.3-5.1); Sodium 128 mmol/L (135-145); Total Iron Binding Capacity 244 mcg/dL (228-428); Unsaturated Iron Binding 158 ug/dL
[2025-03-20 17:35] LABS: Microalbum/Creatinine Ratio Ur 120.7 ug/mg cr (<30)
[2025-03-20 17:43] LABS: Vitamin D 25-OH Total 50.5 ng/mL (>30)
[2025-03-20 17:46] LABS: Platelet Count 235 X10*3/uL (160-400); SLIDE REVIEW VERIFIED
[2025-03-20 18:13] LABS: Ferritin 1795 ng/mL (10-250)
== END 2025-03-20 16:11 | disposition home or self-care (01) ==
LOC: HO.LAB 16:10
PROVIDERS: Visit Provider Internal Medicine Nephrology
DX: N18.6 End stage renal disease (principal)
CPT/HCPCS: 36415; 80051; 81001; 82040; 82043; 82306; 82310; 82565; 82570; 82728; 83540; 83735; 83970; 84520; 85025